=== PATIENT | female | born 1995 | race Caucasian/White ===

== ENCOUNTER → 2019-01-26 19:29 | Outpatient (CLI) | payer BC, OTHER, SELFPAY ==
[2019-01-01 15:18] VITALS: BMI 18.8
[2019-01-26 20:42] LABS: Follicle Stimulating Hormone 6.2 mIU/mL; Thyroid Stim Hormone (TSH) 1.13 uIU/mL (0.358-3.74)
== END ==
PROVIDERS: Visit Provider Obstetrics & Gynecology
DX: Z31.9 Encounter for procreative management, unspecified (principal)
CPT/HCPCS: 36415; 83001; 84443

== ENCOUNTER → 2020-01-16 | Outpatient (CLI) | payer OTHER, SELFPAY ==
[2020-01-16 15:22] VITALS: BMI 18.8
[2020-01-20 18:04] LABS: HPV Reflexed? NOT INDICATED
== END | disposition home or self-care (01) ==
PROVIDERS: Referring Provider Nurse Practitioner Women's Health; Visit Provider Nurse Practitioner Women's Health
DX: Z12.4 Encounter for screening for malignant neoplasm of cervix (principal)
CPT/HCPCS: 88175; G0145

== ENCOUNTER → 2021-05-06 20:42 | Outpatient (CLI) | payer OTHER, SELFPAY ==
[2021-01-18 13:03] VITALS: BMI 18.3
[2021-05-06 21:11] LABS: Hematocrit 39.2 % (37-47); Hemoglobin 13.1 g/dL (12.0-15.0); Mean Corp Hgb Conc 33.4 g/dL (32-36); Mean Corpuscular Hgb 30.5 pg (27.0-32.0); Mean Corpuscular Volume 91.4 fL (81-99); Mean Platelet Vol. 11.4 fl (6.2-12.0); Platelet Count 227 K/mm3 (150-450); RBC Distribution Width CV 11.9 % (11.6-14.6); RBC Distribution Width SD 39.7 fl (35.1-43.9); Red Blood Count 4.29 M/mm3 (4.2-5.4); White Blood Count 6.2 K/mm3 (4.4-11.0)
[2021-05-06 21:31] LABS: Hemoglobin A1c 5.1 % (3.8-5.6)
[2021-05-06 21:54] LABS: ALB/GLOB Ratio 1.2 RATIO (0.9-2.4); AST(SGOT) 14 U/L (15-37); Alanine Aminotransfer ALT/SGPT 13 U/L (13-56); Albumin, Serum 4.1 g/dL (3.2-5.0); Alkaline Phosphatase 52 U/L (45-117); Anion Gap 5 (5-15); BUN 9 mg/dL (7-18); BUN/Creat Ratio 11.2 RATIO (10-20); Calcium,Total 9.1 mg/dL (8.5-10.1); Chloride 107 mmol/L (98-107); EST Glomerular Filtration Rate 90 mL/min (>60); Est Glom Filt Rate - Afr Amer 109 mL/min (>60); Globulin 3.3 g/dL (2.2-4.2); Glucose 92 mg/dL (74-106); Potassium 3.4 mmol/L (3.5-5.1); Prolactin 16.7 ng/mL; Protein, Total 7.4 g/dL (6.4-8.2); Sodium Level 141 mmol/L (136-145); Thyroid Stim Hormone (TSH) 0.87 uIU/mL (0.358-3.74)
[2021-05-07 11:09] LABS: HIV - WCH Non-Reactive (Nonreactive); Hepatitis B Surface Antigen Non-Reactive (Nonreactive); Hepatitis C Antibody Non-Reactive (Nonreactive); Rubella IgG Reactive (Nonreactive); Syphilis Antibodies Non-reactive; Vitamin D,25 Hydroxy 28.8 ng/mL
[2021-05-13 14:21] LABS: Anti-Mullerian Hormone,Serum 2.37 ng/mL (.); V-Zoster IgG (Immunity) 276 index (Immune >165)
== END ==
PROVIDERS: PCP Obstetrics & Gynecology; Visit Provider Obstetrics & Gynecology Reproductive Endocrinology
DX: Z31.41 Encounter for fertility testing (principal)
CPT/HCPCS: 36415; 80053; 82306; 83036; 83516; 84146; 84403; 84443; 85027; 86703; 86762; 86780; 86787; 86803; 86850; 86900; 86901; 87340

== ENCOUNTER → 2021-07-21 08:43 | Outpatient (CLI) | payer OTHER, SELFPAY ==
[2021-07-21 09:18] LABS: hCG Titer Quant., Serum 15 mIU/mL (1-3)
[2021-07-21 10:07] LABS: Progesterone Level 50.29 ng/mL (See Comment)
== END ==
PROVIDERS: PCP Obstetrics & Gynecology; Referring Provider Obstetrics & Gynecology Reproductive Endocrinology; Visit Provider Obstetrics & Gynecology Reproductive Endocrinology
DX: Z32.00 Encounter for pregnancy test, result unknown (principal)
CPT/HCPCS: 36415; 84144; 84702

== ENCOUNTER → 2021-07-23 09:11 | Outpatient (CLI) | payer OTHER, SELFPAY ==
[2021-07-23 09:47] LABS: hCG Titer Quant., Serum 32 mIU/mL (1-3)
[2021-07-23 10:02] LABS: Progesterone Level 56.94 ng/mL (See Comment)
== END ==
PROVIDERS: Referring Provider Obstetrics & Gynecology Reproductive Endocrinology; Visit Provider Obstetrics & Gynecology Reproductive Endocrinology
DX: O09.00 Supervision of pregnancy with history of infertility, unspecified trimester (principal); Z3A.00 Weeks of gestation of pregnancy not specified
CPT/HCPCS: 36415; 82670; 84144; 84443; 84702

== ENCOUNTER → 2021-07-27 08:58 | Outpatient (CLI) | payer OTHER, SELFPAY ==
[2021-07-27 10:07] LABS: hCG Titer Quant., Serum 42 mIU/mL (1-3)
[2021-07-27 10:32] LABS: Progesterone Level 36.76 ng/mL (See Comment)
== END ==
PROVIDERS: PCP Family Medicine; Referring Provider Obstetrics & Gynecology Reproductive Endocrinology; Visit Provider Obstetrics & Gynecology Reproductive Endocrinology
DX: O09.00 Supervision of pregnancy with history of infertility, unspecified trimester (principal); Z3A.00 Weeks of gestation of pregnancy not specified
CPT/HCPCS: 36415; 82670; 84144; 84702

== ENCOUNTER → 2021-07-30 09:03 | Outpatient (CLI) | payer OTHER, SELFPAY ==
[2021-07-30 10:41] LABS: hCG Titer Quant., Serum 17 mIU/mL (1-3)
[2021-07-30 12:55] LABS: Progesterone Level 68.89 ng/mL (See Comment)
== END ==
PROVIDERS: PCP Family Medicine; Referring Provider Obstetrics & Gynecology Reproductive Endocrinology; Visit Provider Obstetrics & Gynecology Reproductive Endocrinology
DX: O02.81 Inappropriate change in quantitative human chorionic gonadotropin (hCG) in early pregnancy (principal)
CPT/HCPCS: 36415; 82670; 84144; 84702

== ENCOUNTER → 2021-08-06 08:00 | Outpatient (CLI) | payer OTHER, SELFPAY ==
[2021-08-06 10:12] LABS: hCG Titer Quant., Serum < 1 mIU/mL (1-3)
== END ==
PROVIDERS: PCP Family Medicine; Referring Provider Obstetrics & Gynecology Reproductive Endocrinology; Visit Provider Obstetrics & Gynecology Reproductive Endocrinology
DX: O09.00 Supervision of pregnancy with history of infertility, unspecified trimester (principal); Z3A.00 Weeks of gestation of pregnancy not specified
CPT/HCPCS: 36415; 84702

== ENCOUNTER 2022-01-25 13:13 | Emergency (ER) | payer OTHER, SELFPAY ==
[2022-01-25 13:14] VITALS: BP 173/108; PULSE 98; RESP 16; TEMP 36.9; O2SAT 100; BMI 17.8
--- NOTE | 2022-01-25 13:51 | CT_ITS ---
STUDY: CT ABDOMEN AND PELVIS WITH CONTRAST REASON FOR EXAM: Female, 26 years old. Epigastric pain. RADIATION DOSAGE (If Supplied By Facility): CTDIvol = ( 7.96 ) mGy, DLP = ( 287.30 ) mGycm TECHNIQUE: Transaxial images were obtained from the dome of the diaphragm to the symphysis pubis with oral contrast. Oral and amp; IV Gastrografin and amp; 100mL Isovue-300 was administered. Sagittal and coronal images were reconstructed. Individualized dose optimization techniques were used for this CT. COMPARISON: None. FINDINGS: The visualized lung bases are unremarkable. The visualized portions of the heart are within normal limits. Normal liver. Normal gallbladder and extrahepatic biliary system. Normal spleen. Normal pancreas. Normal bilateral adrenal glands. Normal right kidney. Normal left kidney. Normal visualized stomach. Normal small intestine. Normal colon. The appendix is visualized and appears normal. Normal abdominal aorta. Normal inferior vena cava. Normal retroperitoneum. Normal urinary bladder. 1.5 cm follicle in the left ovary. Small amount of free fluid in the cul-de-sac. Small follicles are seen in the right ovary. Normal abdominal wall. Normal osseous structures. CT/Abdomen/Pelvis WITH Contrast IMPRESSION: Small amount of free fluid in the cul-de-sac. Follicles in both ovaries more prominent on the left side. Electronically Signed: Kenneth Li MD at 15:55 [facility] ,
--- NOTE | 2022-01-25 13:52 | ED.VIS.GI ---
HPI HPI - GI History of Present Illness Chief Complaint: Abd Pain Detail of Chief Complaint: Abdominal pain x3 days Informant: patient Abdominal Pain/Flank Pain Current Severity: 5/10 Narrative Narrative: Patient presents to the emergency department with complaint of abdominal pain that started 3 days ago. Patient describes epigastric pain that is been continuous. The pain now seems to radiate lower into the abdomen. She has had decreased appetite. She denies nausea or vomiting. She denies diarrhea. She is having normal bowel movements. Patient also started her menstrual period 3 days ago. She denies fevers. She denies urinary symptoms. Food really does not seem to make the pain worse. Patient tells me that she had an EGD in 2019 that showed she had a hiatal hernia. No prior history of gastritis or peptic ulcer disease. Patient has not taken anything for her pain. Prior similar symptoms: Yes PFSH PFSH Medical History (Updated 01/25/22 @ 16:[address] Patricia Murphy, ) LIN I (cervical intraepithelial neoplasia I) History of colposcopy Home Medications albuterol sulfate 90 mcg/actuation aerosol inhaler 1 puff INHALATION Q6H PRN 01/01/19 [History Last Taken Unknown] promethazine 25 mg tablet 25 mg PO Q6H PRN 01/01/19 [History Last Taken Unknown] lansoprazole [Prevacid] 30 mg PO DAILY #14 cap 01/25/22 [Rx Last Taken Unknown] Allergy/AdvReac Type Severity Reaction Status Date / Time clarithromycin [From Biaxin] Allergy Mild rash Verified 01/18/21 12:59 latex Allergy Mild hives Verified 01/18/21 12:59 Family History Mother Hypertension Diabetes Grandmother Diabetes Cancer uterine Grandfather Diabetes Heart disease Hypertension Surgical History H/O esophagogastroduodenoscopy Status post tonsillectomy and adenoidectomy Social History (Updated 01/18/21 @ 13:25 by Amy Gomez NP, [employer]) Smoking Status: Never smoker alcohol intake: never substance use type: does not use caffeine: Yes what type of physical activity do you participate in: walking frequency: 1-2 times per week seatbelt use: always do you feel safe at home: Yes additional social history: [employer] Patient work for [employer] ED Constitutional Constitutional ED: Reports systems reviewed and no addt'l complaints, except as documented; Denies body ache(s), change in weight or chills Eyes Eyes: Denies acute decrease in peripheral vision, change in vision, double vision or loss of vision ENT ENT ED: Reports none; Denies ear pain, lip swelling, loss taste/smell, neck pain, otalgia or sore throat Cardiovascular Cardiovascular: Reports none; Denies abdominal pain, chest pain with activity, leg edema, lightheadedness, palpitations, rapid heart rate or syncope Respiratory/Chest Respiratory/Chest: Reports none; Denies change in mental status, dry cough, dyspnea, hemoptysis, shortness of breath at rest or shortness of breath with exertion Gastrointestinal Gastrointestinal: Reports none, abdominal pain and other Details: Decreased appetite ; Denies change in stool character, diarrhea, hematemesis, hematochezia, melena, rectal bleeding or vomiting Genitourinary Genitourinary ED: Reports none; Denies abdominal discomfort, anuria, dysuria, genital pain or polyuria Musculoskeletal Musculoskeletal: Reports none; Denies arthralgias, back pain, difficulty walking, extremity pain, muscle weakness or myalgias Integumentary Reports none; Denies abscess or rash Neurologic Neurologic: Reports none; Denies abnormal gait, confusion, focal weakness, frequent falls, headache(s), loss of vision, numbness, paresthesias, radicular pain, vertigo or weakness Psychiatric Psychiatric: Reports systems reviewed and no addt'l complaints, except as documented and none; Denies behavioral changes, confusion, difficulty concentrating, hallucinations, suicidal ideation, tactile hallucinations or visual hallucinations Endocrine Endocrinology: Denies none, cold intolerance, excessive sweating, fatigue or heat intolerance Hematologic/Lymphatic Hematologic/Lymphatic: Reports none; Denies anemia, easy bleeding or easy bruising Allergic/Immunologic Allergic/Immunologic ED: Denies as per HPI, none, lip swelling, mouth swelling, throat swelling, tongue swelling or hives EXAM Physical Exam Const Vital Signs: 01/25/22 13:14 Temperature 98.4 F Temperature Source Temporal Pulse Rate 98 Respiratory Rate 16 Blood Pressure 173/108 H Blood Pressure Mean 129 Pulse Ox 100 Oxygen Delivery Method Room Air Positive well nourished and well developed General Appearance ED: well developed and NAD HEENT Reports TM's clear and moist mucous membranes normocephalic and atraumatic; Negative for trauma or tenderness Tympanic Membrane ED: Yes TM's clear Eyes PERRL and EOMs intact bilaterally General Eye ED: Negative for pale conjunctiva or scleral icterus Neck no lymphadenopathy, supple and no JVD General: Negative for tenderness Chest Wall inspection of chest normal and palpation of chest normal Chest: Negative for tenderness Resp normal respiratory effort and clear to auscultation bilaterally Effort and Inspection: Negative for respiratory distress or pain with movement Auscultation: Negative for rhonchi, wheezes or diminished lung sounds Cardio regular rate, regular rhythm, S1 normal heart sound, S2 normal heart sound and no murmurs Peripheral Pulses: pulses 2+ throughout GI normal to inspection, nondistended, normoactive bowel sounds, soft to palpation, non-distended and no masses GI Narrative: Patient with tenderness over the epigastric region that seems to reproduce her pain. Mild tenderness over right upper quadrant without a Chow sign. Patient also with some tenderness over right lower quadrant with some mild guarding. There is no rebound, rigidity, or peritoneal signs. Back/Spine no CVA tenderness and no thoracic nor lumbar tenderness Extremity normal to inspection General Extremety ED: Negative for edema General Extremity: Negative for edema Neuro oriented x3, CN's II-XII intact bilaterally, no sensory deficits noted and gait normal Sensorium / Orientation: awake, alert, oriented to person, oriented to place and oriented to time Motor Exam: strength 5/5 throughout and strength abnormal Psych mental status grossly normal Skin no rashes or lesions noted and no wounds MDM MDM MDM Narrative Medical decision making narrative: IV line established on arrival. Patient did not want anything for pain. Patient given a GI cocktail without any improvement in her pain. At this point etiology of patient pain is unclear. Her CT scan was unremarkable. Lab work unremarkable. Lab Data Attestation: I reviewed the patient's lab results. Labs: Laboratory Results - last 24 hr 01/25/22 01/25/22 01/25/22 13:55 14:02 14:02 WBC 6.1 RBC 4.55 Hgb 13.8 Hct 39.2 MCV 86.2 MCH 30.3 MCHC 35.2 RDW Std Deviation 38.1 RDW Coeff of Ana 12.0 Plt Count 195 MPV 11.4 Immature Gran % (Auto) 0.300 Neut % (Auto) 70.0 Lymph % (Auto) 17.5 L [place] % (Auto) 11.6 H Eos % (Auto) 0.3 Baso % (Auto) 0.3 Absolute Neuts (auto) 4.3 Absolute Lymphs (auto) 1.07 Nucleated RBC % 0 Sodium 139 Potassium 3.3 L Chloride 106 Carbon Dioxide 29.0 Anion Gap 4 L BUN 6 L Creatinine 0.76 Estim Creat Clear Calc 89.96 Est GFR (MDRD) Af Amer 115 Est GFR (MDRD) Non-Af 95 BUN/Creatinine Ratio 7.9 L Glucose 101 Calcium 9.0 Total Bilirubin 1.40 H AST 17 ALT 21 Alkaline Phosphatase 48 Total Protein 7.3 Albumin 4.0 Globulin 3.3 Albumin/Globulin Ratio 1.2 Serum , Qual Urine Color Yellow Urine Clarity Clear Urine pH 6.0 Ur Specific [place] 1.010 Urine Protein Negative Urine Glucose (UA) Normal Urine Ketones Negative Urine Occult Blood 250 H Urine Nitrite Negative Urine Bilirubin Negative Urine Urobilinogen Normal Ur Leukocyte Esterase Negative Urine RBC 0-5 SEEN Urine WBC 0 SEEN Ur Squamous Epith Cells 0 SEEN Urine Bacteria 0 SEEN Urine Mucus 0 SEEN 01/25/22 14:02 WBC RBC Hgb Hct MCV MCH MCHC RDW Std Deviation RDW Coeff of Ana Plt Count MPV Immature Gran % (Auto) Neut % (Auto) Lymph % (Auto) [place] % (Auto) Eos % (Auto) Baso % (Auto) Absolute Neuts (auto) Absolute Lymphs (auto) Nucleated RBC % Sodium Potassium Chloride Carbon Dioxide Anion Gap BUN Creatinine Estim Creat Clear Calc Est GFR (MDRD) Af Amer Est GFR (MDRD) Non-Af BUN/Creatinine Ratio Glucose Calcium Total Bilirubin AST ALT Alkaline Phosphatase Total Protein Albumin Globulin Albumin/Globulin Ratio Serum , Qual NEGATIVE Urine Color Urine Clarity Urine pH Ur Specific [place] Urine Protein Urine Glucose (UA) Urine Ketones Urine Occult Blood Urine Nitrite Urine Bilirubin Urine Urobilinogen Ur Leukocyte Esterase Urine RBC Urine WBC Ur Squamous Epith Cells Urine Bacteria Urine Mucus Radiography Diagnostic Testing: Clinical Impression(s) from Imaging Studies Abdomen/Pelvis CT 01/25/22 13:51 IMPRESSION: Small amount of free fluid in the cul-de-sac. Follicles in both ovaries more prominent on the left side. Electronically Signed: Kenneth Li MD at 15:55 EST , Discharge Plan Triage Chief Complaint: Abd Pain ED Provider: Patricia Murphy Dx/Rx/DC Orders Clinical Impression: Abdominal pain Instructions: ED Abdominal Pain Unkn Cause Fem Prescriptions: New lansoprazole [Prevacid] 30 mg capsule,delayed release(DR/EC) 30 mg PO DAILY Qty: 14 RF: 0 No Action ProAir HFA 90 mcg/actuation HFA aerosol inhaler 1 puff INHALATION Q6H PRN (Reason: Wheezing) RF: 0 promethazine 25 mg tablet 25 mg PO Q6H PRN (Reason: Nausea) RF: 0 Primary Care Provider: Kevin oRca Referrals: Kevin Roca MD [Primary Care Provider] - 3-5 Days Disposition Disposition: Home, Self Care
[2022-01-25 14:06] LABS: Bacteria 0 SEEN /hpf (None Seen); Mucous, Urine 0 SEEN /hpf (<or=2+); Squamous Epithelial Cells - UA 0 SEEN /hpf (5-10); White Blood Cells 0 SEEN /hpf (0-5)
[2022-01-25 14:09] LABS: Color, Urine Yellow (Yellow); Glucose, Dipstick Normal (Normal); Ketone-Dipstick Negative (Negative); Leukocyte Esterase-Dipstick Negative /ul (Negative); Nitrite-Dipstick Negative (Negative); Occult Blood-Urine 250 /ul (Negative); Protein-Dipstick Negative (Negative); Urine Bilirubin Dipstick Negative (Negative); Urine Clarity Clear (Clear); Urine Urobilinogen Normal (Normal)
[2022-01-25 14:10] LABS: Absolute Lymphocyte Count 1.07 X10^3/uL (0.83-4.51); Absolute Neutrophil Count 4.3 X10^3/uL (2.0-7.7); Basophil# 0.02 X10^3/uL; Basophil% 0.3 % (0-1); Eosinophil# 0.02 X10^3/uL; Eosinophils% 0.3 % (0-5); Hematocrit 39.2 % (37-47); Hemoglobin 13.8 g/dL (12.0-15.0); Lymphocyte # 1.07 X10^3/ul (0.83-4.51); Lymphocyte % 17.5 % (19-41); Mean Corp Hgb Conc 35.2 g/dL (32-36); Mean Corpuscular Hgb 30.3 pg (27.0-32.0); Mean Corpuscular Volume 86.2 fL (81-99); Mean Platelet Vol. 11.4 fl (6.2-12.0); Monocyte# 0.71 X10^3/uL; Monocyte% 11.6 % (0-10); NRBC Flagged by Analyzer 0 % (0-5); Neutrophil # 4.27 X10^3/uL (2.7-7.7); Platelet Count 195 K/mm3 (150-450); RBC Distribution Width SD 38.1 fl (35.1-43.9); Red Blood Count 4.55 M/mm3 (4.2-5.4); White Blood Count 6.1 K/mm3 (4.4-11.0)
[2022-01-25 14:16] LABS: Internal QC Validated? YES +Cl - CLEAR BKGD; Pregnancy, Serum, hCG Quali. NEGATIVE Negative
[2022-01-25 14:17] LABS: Red Blood Cells-Urine 0-5 SEEN /hpf (0-5)
[2022-01-25 14:24] LABS: ALB/GLOB Ratio 1.2 RATIO (0.9-2.4); AST(SGOT) 17 U/L (15-37); Alanine Aminotransfer ALT/SGPT 21 U/L (13-56); Alkaline Phosphatase 48 U/L (45-117); Anion Gap 4 (5-15); BUN 6 mg/dL (7-18); BUN/Creat Ratio 7.9 RATIO (10-20); Chloride 106 mmol/L (98-107); Creatinine, Serum 0.76 mg/dL (0.55-1.02); EST Glomerular Filtration Rate 95 mL/min (>60); Est Glom Filt Rate - Afr Amer 115 mL/min (>60); Estimated Creatinine Clearance 89.96 ml/min; Globulin 3.3 g/dL (2.2-4.2); Glucose 101 mg/dL (74-106); Potassium 3.3 mmol/L (3.5-5.1); Protein, Total 7.3 g/dL (6.4-8.2); Sodium Level 139 mmol/L (136-145)
[2022-01-25] MEDS: Mag Hydrox/Al Hydrox/Simeth 30 ML UDC PO (14:42)
[2022-01-25] MEDS: 0.9% Normal Saline 1,000 ML 125 ML IV (14:43)
[2022-01-25 16:05] VITALS: PULSE 72; RESP 18
== END 2022-01-25 16:13 | disposition home or self-care (01) ==
PROVIDERS: Emergency Provider Emergency Medicine; PCP Family Medicine; Visit Provider Emergency Medicine
DX: R10.9 Unspecified abdominal pain (principal)
CPT/HCPCS: 74177; 80053; 81001; 84703; 85025; 96360; 99283; J7030; Q9967

== ENCOUNTER 2022-02-25 14:14 | Outpatient (CLI) | payer OTHER, SELFPAY ==
--- NOTE | 2022-02-25 14:19 | US_ITS ---
HISTORY:right pelvic pain. TECHNIQUE: Transvaginal pelvic ultrasound was performed with grayscale, spectral, and color Doppler flow evaluation. # of images incl. paperwork: 62. COMPARISON: CT 01/25/2022. FINDINGS: UTERUS: 8.2 x 3.7 x 5.3 cm. ENDOMETRIUM: 7 mm in thickness. RIGHT OVARY: 5.3 x 2.5 x 2 cm. 1.7 x 4 x 3.1 cm cyst Vascular flow present. LEFT OVARY: 3.7 x 2.4 x 3.3 cm. 2 cm complex cyst with internal echoes. Vascular flow present. FREE FLUID: No significant free fluid in the pelvis. US/Transvaginal Non- IMPRESSION: 4 cm right ovarian cyst. 2 cm hemorrhagic left ovarian cyst. at 0935 Reported and signed by: Silvia Adams MD Electronically Signed: Silvia Adams MD at 9:33 EDT ,
--- NOTE | 2022-02-25 14:19 | US_ITS ---
HISTORY:right pelvic pain. TECHNIQUE: Transvaginal pelvic ultrasound was performed with grayscale, spectral, and color Doppler flow evaluation. # of images incl. paperwork: 62. COMPARISON: CT 01/25/2022. FINDINGS: UTERUS: 8.2 x 3.7 x 5.3 cm. ENDOMETRIUM: 7 mm in thickness. RIGHT OVARY: 5.3 x 2.5 x 2 cm. 1.7 x 4 x 3.1 cm cyst Vascular flow present. LEFT OVARY: 3.7 x 2.4 x 3.3 cm. 2 cm complex cyst with internal echoes. Vascular flow present. FREE FLUID: No significant free fluid in the pelvis. US/Pelvic (Non ) IMPRESSION: 4 cm right ovarian cyst. 2 cm hemorrhagic left ovarian cyst. at 0935 Reported and signed by: Silvia Adams MD Electronically Signed: Silvia Adams MD at 9:33 EDT ,
== END 2022-02-25 23:59 | disposition home or self-care (01) ==
LOC: US 14:18
PROVIDERS: PCP Family Medicine; Referring Provider Nurse Practitioner Women's Health; Visit Provider Nurse Practitioner Women's Health
DX: R10.2 Pelvic and perineal pain (principal)
CPT/HCPCS: 76830; 76856; 93976

== ENCOUNTER → 2022-04-27 | Outpatient (CLI) | payer OTHER, SELFPAY ==
--- NOTE | 2022-04-27 09:58 | US_ITS ---
STUDY: ULTRASOUND OF THE FEMALE PELVIS - COMPLETE REASON FOR EXAM: Female, 27 years old. Bilateral ovarian cyst . Two-month follow-up examination. LMP: 04/04/2022. TECHNIQUE: Transabdominal and Transvaginal TECHNICAL QUALITY: Adequate. COMPARISON: None. FINDINGS: The uterus is anteverted and is tilted to the right side of the pelvis. The uterus measures 8.5 cm x 5.5 cm x 4 cm. There is a Nabothian cyst of the cervix. The endometrium measures 8 mm in thickness, and is hyperechoic. There is no demonstrated endometrial mass. There is no demonstrated myometrial mass. I.U.D. - The patient does not have an I.U.D. The right ovary is visualized. The right ovary measures 5.1 cm x 3.6 cm x 3.3 cm. There is a 2.3 cm x 2.6 cm x 1.8 cm simple cyst in the ovary. There is no visualized right adnexal mass or complex lesion. There is normal arterial and normal venous vascularity. The left ovary is visualized. The left ovary measures 3.6 cm x 3.2 cm x 2.7 cm. There is a 1.4 cm x 1.5 cm x 1.4 cm left ovarian follicle. There is no visualized left adnexal mass or complex lesion. There is normal arterial and normal venous vascularity. There is no fluid in the cul-de-sac. The pre void volume of the bladder was 376 ml. US/Transvaginal Non- IMPRESSION: 2.3 cm x 2.6 x 1.8 cm right ovarian simple cyst. 1.4 cm x 1.5 ALAYNA by 1.4 cm left ovarian follicle. Electronically Signed: Kenneth Li MD at 16:10 EDT ,
--- NOTE | 2022-04-27 09:58 | US_ITS ---
STUDY: ULTRASOUND OF THE FEMALE PELVIS - COMPLETE REASON FOR EXAM: Female, 27 years old. Bilateral ovarian cyst . Two-month follow-up examination. LMP: 04/04/2022. TECHNIQUE: Transabdominal and Transvaginal TECHNICAL QUALITY: Adequate. COMPARISON: None. FINDINGS: The uterus is anteverted and is tilted to the right side of the pelvis. The uterus measures 8.5 cm x 5.5 cm x 4 cm. There is a Nabothian cyst of the cervix. The endometrium measures 8 mm in thickness, and is hyperechoic. There is no demonstrated endometrial mass. There is no demonstrated myometrial mass. I.U.D. - The patient does not have an I.U.D. The right ovary is visualized. The right ovary measures 5.1 cm x 3.6 cm x 3.3 cm. There is a 2.3 cm x 2.6 cm x 1.8 cm simple cyst in the ovary. There is no visualized right adnexal mass or complex lesion. There is normal arterial and normal venous vascularity. The left ovary is visualized. The left ovary measures 3.6 cm x 3.2 cm x 2.7 cm. There is a 1.4 cm x 1.5 cm x 1.4 cm left ovarian follicle. There is no visualized left adnexal mass or complex lesion. There is normal arterial and normal venous vascularity. There is no fluid in the cul-de-sac. The pre void volume of the bladder was 376 ml. US/Pelvic (Non ) IMPRESSION: 2.3 cm x 2.6 x 1.8 cm right ovarian simple cyst. 1.4 cm x 1.5 ALAYNA by 1.4 cm left ovarian follicle. Electronically Signed: Kenneth Li MD at 16:10 EDT ,
== END | disposition home or self-care (01) ==
PROVIDERS: PCP Family Medicine; Visit Provider Obstetrics & Gynecology
DX: N83.201 Unspecified ovarian cyst, right side (principal); N83.202 Unspecified ovarian cyst, left side
CPT/HCPCS: 76830; 76856

== ENCOUNTER → 2023-02-20 | Outpatient (CLI) | payer BC, SELFPAY ==
[2023-02-27 16:15] LABS: HPV Reflexed? NOT INDICATED
== END | disposition home or self-care (01) ==
LOC: LABSPEC 13:26
PROVIDERS: PCP Family Medicine; Referring Provider Nurse Practitioner Women's Health; Visit Provider Nurse Practitioner Women's Health
DX: Z12.4 Encounter for screening for malignant neoplasm of cervix (principal); N89.8 Other specified noninflammatory disorders of vagina
CPT/HCPCS: 87255; 88175; G0145

== ENCOUNTER → 2023-11-27 | Outpatient (CLI) | payer BC, SELFPAY ==
--- OUTSIDE RECORDS SUMMARY | 2023-11-27 12:29 | XMS RPT_ITS | CCD ---
Author Name Unknown Address [address] [place] [address] Organization [facility] Care Team Providers Care Field Handyman Name Role Phone Shilo Serjio R Unavailable Unavailable No Doctor Assigned, Nodr Unavailable Unavail able Shilo, Serjio R Unavailable Unavailable No Doctor Assigned, Nodr Unavailable Unavail able Shilo, Serjio R Unavailable Unavailable Shilo, Serjio R Unavailable Unavailable No Doctor Assigned, Nodr Unavailable Unavail able Shilo, Serjio R Unavailable Unavailable Newbill, Cliff Bon Unavailable Unavailable Newbill, Cliff Bon Unavailable Unavailable No Doctor Assigned, Nodr Unavailable Unavail able Shilo, Serjio R Unavailable Unavailable No Doctor Assigned, Nodr Unavailable Unavail able Shilo, Serjio R Unavailable Unavailable No Doctor Assigned, Nodr Unavailable Unavail able Shilo, Serjio R Unavailable Unavailable Shilo, Serjio R Unavailable Unavailable No Doctor Assigned, Nodr Unavailable Unavail able Wood, Mirella L Unavailable Unavailable Wood, Mirella L Unavailable Unavailable No Doctor Assigned, Nodr Unavailable Unavail able Newbill, Cliff Bon Unavailable Unavailable Newbill, Cliff Bon Unavailable Unavailable No Doctor Assigned, Nodr Unavailable Unavail able Newbill, Cliff Bon Unavailable Unavailable Newbill, Cliff Bon Unavailable Unavailable No Doctor Assigned, Nodr Unavailable Unavail able CHLOE, HARRISON Referring Unavailable CHLOE, HARRISON Referring Unavailable Kevin Peterson Primary Care Unavailable Olga Peterson MD Primary Care Provider Olga Peterson MD Primary Care Provider SIMÓN MCKEON JR. Attending Unavailable OLGA PETERSON Primary Care Unavailable SIMÓN MCKEON JR. Attending Unavailable OLGA PETERSON Primary Care Unavailable Olga Peterson MD Primary Care Provider [phone] Olga Peterson MD Primary Care Provider [phone] OLGA PETERSON Primary Care Unavailable NORMA MUIR Attending Unavailable NEYDA VAZQUEZ Consulting Unavai lable EMERGENCY, TRIAGE PROTOCOL Admitting Unava ilable EMERGENCY, TRIAGE PROTOCOL Referring Unava ilable NICHOLAS, OLGA Emery Primary Care Unavailable EMERGENCY, TRIAGE PROTOCOL Admitting Unava ilable EMERGENCY, TRIAGE PROTOCOL Referring Unava ilable NICHOLAS, OLGA R Primary Care Unavailable NICHOLAS, OLGA R Primary Care Unavailable LEMON, ELIF Attending Unavailable PONCHO ADAIR Referring Unavailable JONAH SAUNDERS Attending Unavailable OLGA PETERSON Primary Care Unavailable JATIN, PARISH Referring Unavailable GUSTAElisha, OLGA Emery Primary Care Unavailable LEMON, ELIF Attending Unavailable GUSTAElisha, OLGA Emery Primary Care Unavailable JATIN, PARISH Referring Unavailable LEMON, ELIF Attending Unavailable JATIN, PARISH Attending Unavailable OLGA PETERSON Primary Care Unavailable SHAHNAZ HSIEH Attending Unava ilable OLGA PETERSON R Primary Care Unavailable PARTHA BUSH Attending Unavailable OLGA PETERSON Primary Care Unavailable OLGA PETERSON Primary Care Unavailable JATIN, PARISH Referring Unavailable ANJUM CHRISTY Attending Unavailable OLGA PETERSON Primary Care Unavailable JATIN, PARISH Referring Unavailable GUSTAElisha, OLGA R Primary Care Unavailable JATIN, PARISH Referring Unavailable GUSTAElisha, OLGA Emery Primary Care Unavailable JATIN, PARISH Referring Unavailable LEMON, ELIF Attending Unavailable LEMON, ELIF Attending Unavailable GUSTAOLGA Tlelo Primary Care Unavailable PONCHO ADAIR Referring Unavailable JONAH SAUNDERS Attending Unavailable OLGA PETERSON Primary Care Unavailable JATIN, PARISH Referring Unavailable GUSTAElisha, OLGA Emery Primary Care Unavailable LEMON, ELIF Attending Unavailable UGSTAOLGA Tello Primary Care Unavailable LEMON, ELIF Attending Unavailable JATIN, PARISH Referring Unavailable OLGA PETERSON Primary Care Unavailable Olga Peterson MD Primary Care Provider OLGA PETERSON Primary Care Unavailable SELINA REED Attending Unavailable Allergies Allergy Classification Reported Allergen(s) Allergy Type Date of Onset Reaction(s) Facility Latex (2 sources) Latex Substance Allergy Hives [facility] Macrolides (antibiotic) (2 sources) Clarithromycin Drug Allergy [facility] (2 sources) clarithromycin; Translations: [Biaxin] Drug Allergy [facility] Repository (20 sources) Latex; Translations: [Latex] Propensity to adverse reactions (disorder) 5 [facility] Repository (1 source) No Known Allergies; Translations: [No Known Allergies] Propensity to adverse reactions to drug (disorder) [facility] Repository (20 sources) Clarithromycin; Translations: [CLARITHROMYCIN] Drug Allergy 5 [facility], Other [facility] Repository (20 sources) Seasonal allergy; Translations: [SEASONAL ALLERGIES] Propensity to adverse reactions (disorder) 5 [facility] Repository Medications Current Medications Medication Drug Class(es) Dates Sig (Normalized) Sig (Original) Acetaminophen (3 sources) ACETAMINOPHEN OR AL Take by mouth . 0 Active amoxicillin 875 mg / clavulanate 125 mg oral tablet (1 source) Penicillin-class Antibacterial Start: 10-24-2023 End: 10-31-2023 take 1 tablet by mouth twice daily amoxicillin-pot clavulanate (Augmentin) 875-125 mg tablet Indications: Acute non-recurrent maxillary sinusitis Take 1 tablet (875 mg) by mouth 2 times a day for 7 days. 14 tablet 0 10/24/2023 10/31/2023 Active ibuprofen 200 mg oral tablet (1 source) Nonsteroidal Anti-inflammatory Drug Start: 02-06-2013 ibuprofen (ADVIL,MOTRIN) 200 MG tablet Take 400 mg by mouth as needed . 0 02/06/2013 Active naltrexone hydrochloride 50 mg oral tablet (1 source) Opioid Antagonist naltrexone (DEPADE, REVIA) 50 mg tablet Take 3 mg by mouth . 0 Active predniSONE 5 mg oral tablet (1 source) Start: 08-09-2021 take 1 tablet by mouth twice daily predniSONE (DELTASONE) 5 MG tablet Take 5 mg by mouth 2 (two) times a day as directed . 0 08/09/2021 Active Completed/Discontinued Medications Medication Drug Class(es) Dates Sig (Normalized) Sig (Original) [id number] 200 actuat albuterol 0.09 mg/actuat metered dose inhaler (20 sources) beta2-Adrenergic Agonist Start: 04-07-2023 End: 10-19-2023 take 2 puff(s) by inhalation every six hours as needed albuterol HFA (PROAIR HFA) 90 mcg/actuation inhaler Indications: URI, acute Inhale 2 Puffs as instructed every 6 hours as needed. 18 g 0 10/19/2023 Active Problems Active Problems Problem Classification Problem Date Documented Date Episodic/Chronic Abdominal pain (2 sources) Right upper quadrant pain; Translations: [Right upper quadrant pain] Onset: 03-14-2019 Episodic Asthma (20 sources) Asthma; Translations: [Unspecified asthma, uncomplicated] Onset: 04-07-2023 Chronic Headache; including migraine (20 sources) Migraine without aura, not refractory ; Translations: [Chronic migraine without aura, not intractable, without status migrainosus] Onset: 06-14-2015 06-14-2015 Chronic Headache; including migraine (3 sources) Headache; Translations: [Headache] 05-10-2021 Episodic Intracranial injury (4 sources) Concussion with loss of consciousness of unspecified duration, initial encounter; Translations: [Concussion with loss of consciousness of unspecified duration, initial encounter] Onset: 07-17-2023 Episodic Open wounds of head; neck; and trunk (4 sources) Laceration without foreign body of other part of head, initial encounter; Translations: [Laceration without foreign body of other part of head, initial encounter] Onset: 07-17-2023 Episodic Other connective tissue disease (4 sources) Achilles tendinitis; Translations: [Achilles tendinitis, unspecified leg] Episodic Other connective tissue disease (4 sources) Postcalcaneal bursitis; Translations: [Other enthesopathy of unspecified foot and ankle] Episodic Other connective tissue disease (1 source) Weakness of face muscles; Translations: [Facial weakness] 08-09-2023 Episodic Other injuries and conditions due to external causes (1 source) Injury of facial nerve, right side, initial encounter; Translations: [Injury of right facial nerve, initial encounter] Onset: 09-06-2023 Episodic Other lower respiratory disease (1 source) Difficulty breathing; Translations: [Other abnormalities of breathing] 10-09-2023 Episodic Other lower respiratory disease (1 source) Other abnormalities of breathing; Translations: [Breathing difficult] Onset: 10-09-2023 Episodic Other nervous system disorders (1 source) Abnormal sensation; Translations: [Other disturbances of skin sensation] 08-09-2023 Episodic Other nervous system disorders (1 source) Facial palsy; 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] 10-09-2023 Episodic Other nervous system disorders (1 source) Jacinto's palsy; 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] Onset: 10-09-2023 Episodic Other upper respiratory disease (1 source) Deviated nasal septum; Translations: [Deviated nasal septum] 10-09-2023 Episodic Other upper respiratory disease (1 source) Deviated nasal septum; Translations: [Deflected nasal septum] Onset: 10-09-2023 Episodic Other upper respiratory infections (4 sources) Acute upper respiratory infection; Translations: [Acute upper respiratory infection, unspecified] Onset: 10-24-2023 10-19-2023 Episodic Skull and face fractures (4 sources) Fracture of nasal bones, initial encounter for closed fracture; Translations: [Fracture of nasal bones, initial encounter for closed fracture] Onset: 07-17-2023 Episodic Spondylosis; intervertebral disc disorders; other back problems (20 sources) Neck pain; Translations: [Cervicalgia] Onset: 08-21-2023 08-09-2023 Episodic Sprains and strains (7 sources) Rupture of left Achilles tendon; Translations: [Strain of left Achilles tendon, initial encounter] Episodic Superficial injury; contusion (5 sources) Contusion of left foot; Translations: [Contusion of left foot, initial encounter] Episodic Past or Other Problems Problem Classification Problem Date Documented Da te Episodic/Chronic Abdominal hernia (18 sources) Hiatal hernia; Translations: [Diaphragmatic hernia without obstruction or gangrene] Onset: 03-26-2019 03-26-2019 Episodic Acquired foot deformities (20 sources) Talipes planus; Translations: [Flat foot [pes planus] (acquired), unspecified foot] Onset: 04-09-2018 04-09-2018 Episodic Other connective tissue disease (20 sources) Dysfunction of posterior tibial tendon; Translations: [Posterior tibial tendinitis, unspecified leg] Onset: 08-09-2018 08-09-2018 Episodic Other non-traumatic joint disorders (20 sources) Chronic ankle pain; Translations: [Pain in left ankle and joints of left foot] Onset: 04-09-2018 04-09-2018 Episodic Results Test Name Value Interpretation Reference Range Facil ity Vital Signs Date Time Vital Sign Value Performing Clinician Facility 10-24-2023 18:11-0500 Body height 170.2 cm Selina Reed [employer] TECHNOLOGIST Work Phone: [facility] 10-24-2023 18:11-0500 Body mass index (BMI) [Ratio] 18.01 kg/m2 Selina Reed [employer]-SPE[employer] PROCEDURE TECHNOLOGIST Work Phone: [facility] 10-24-2023 18:11-0500 Body temperature 98.49 [degF] Selina Reed [employer]-SPECIAL PROCEDURE TECHNOLOGIST Work Phone: [facility] 10-24-2023 18:11-0500 Body weight 52.16 kg Selina Reed [employer]SPECIAL PROCEDURE TECHNOLOGIST Work Phone: [facility] 10-24-2023 18:11-0500 Diastolic blood pressure 94 mm[Hg] Selina Reed [employer]SPECIAL PROCEDURE TECHNOLOGIST Work Phone: [facility] 10-24-2023 18:11-0500 Heart rate 89 /min Selina Reed [employer]SPECIAL PROCEDURE TECHNOLOGIST Work Phone: [facility] 10-24-2023 18:11-0500 Respiratory rate 18 /min Selina Reed [employer]SPECIAL PROCEDURE TECHNOLOGIST Work Phone: [facility] 10-24-2023 18:11-0500 SaO2% (BldA) [Mass fraction] 97 % Selina Reed [employer]-SPECIAL PROCEDURE TECHNOLOGIST Work Phone: [facility] 10-24-2023 18:11-0500 Systolic blood pressure 127 mm[Hg] Selina Reed [employer]-SPECIAL PROCEDURE TECHNOLOGIST Work Phone: [facility] 10-09-2023 10:33-0500 Body temperature 99 [degF] Partha Saldana MD Work Phone: [facility] 10-09-2023 10:33-0500 Diastolic blood pressure 86 mm[Hg] Partha Saldana MD Work Phone: [facility] 10-09-2023 10:33-0500 Heart rate 93 /min Partha Saldana MD Work Phone: [facility] 10-09-2023 10:33-0500 Systolic blood pressure 129 mm[Hg] Partha Saldana MD Work Phone: [facility] 08-09-2023 13:36-0400 Body weight 52.16 kg Parish Jatin [employer].SPECIAL PROCEDURE TECHNOLOGIST Work Phone: [facility] 08-09-2023 13:36-0400 Diastolic blood pressure 80 mm[Hg] Parish Jatin [employer].SPECIAL PROCEDURE TECHNOLOGIST Work Phone: [facility] 08-09-2023 13:36-0400 Heart rate 87 /min Parish Jatin [employer].SPECIAL PROCEDURE TECHNOLOGIST Work Phone: [facility] 08-09-2023 13:36-0400 Systolic blood pressure 127 mm[Hg] Parish Jatin [employer].SPECIAL PROCEDURE TECHNOLOGIST Work Phone: [facility] 08-20-2021 13:37-0400 Body temperature 98.2 [degF] Simón Ghulam Gamble., DPM Work Phone: [facility] 05-19-2021 09:39-0400 Body temperature 98.2 [degF] Simón Ghulam Jr., DPM Work Phone: [facility] 05-19-2021 09:39-0400 Diastolic blood pressure 92 mm[Hg] Simón Mckeon Jr., DPM Work Phone: [facility] 05-19-2021 09:39-0400 Heart rate 88 /min Simón Mckeon Jr., DPM Work Phone: [facility] 05-19-2021 09:39-0400 Systolic blood pressure 117 mm[Hg] Simón Ghulam Gamble., DPM Work Phone: [facility] 04-14-2021 00:00-0400 Body height 170.2 cm Simón Mckeon Jr., DPM Work Phone: [facility] 04-14-2021 00:00-0400 Body mass index (BMI) [Ratio] 17.85 kg/m2 Simón Mckeon Jr., JUAN MANUEL Work Phone: [facility] 04-14-2021 00:00-0400 Body weight 51.71 kg Simón Mckeon Jr., DPJhonathan Work Phone: [facility] Encounters Encounter Date Encounter Type Care Provider Facility Start: 10-24-2023 End: 10-24-2023 ambulatory OLGA PETERSON [facility] Start: 10-24-2023 End: 10-24-2023 Patient encounter procedure Selina Reed [employer]SPE[employer] PROCEDURE TECHNOLOGIST Work Phone: [facility] Procedures Date Procedure Procedure Detail Performing Clinician Start: 03-24-2021 Mri any jt lower ext rem w/o contrast matrl Simón Mckeon DPM Work Phone: Start: 10-30-2020 Adult depression screening assessment Olga Peterson MD Work Phone: Plan of Treatment Date Care Activity Detail Author Start: 2043 Zoster Vaccines (1 of 2) Zoster Vaccines (1 of 2) [facility] Start: 07-17-2033 DTaP/Tdap/Td Vaccines (8 - Td or Tdap) DTaP/Tdap/Td Vaccines (8 - Td or Tdap) [facility] Start: 07-17-2033 Urine microalbumin profile DTaP,Tdap,Td Vaccine (8 - Td or Tdap) [facility] Start: 02-21-2028 PAP TESTING PAP TESTING [facility] Start: 08-16-2027 Tetanus vaccination Tetanus: Every 10yrs [facility] Start: 08-16-2027 Urine microalbumin profile [facility] Start: 08-09-2024 Annual PCP Team Chronic Disease Visit Annual PCP Team Chronic Disease Visit [facility] Start: 04-07-2024 ANNUAL PCP TEAM CHRONIC DISEASE VISIT ANNUAL PCP TEAM CHRONIC DISEASE VISIT [facility] Start: 07-21-2023 Influenza vaccination [facility] Start: 05-06-2023 HPV TESTING HPV TESTING [facility] Start: 11-20-2022 DEPRESSION ASSESSMENT DEPRESSION ASSESSMENT [facility] Start: 07-21-2022 Influenza vaccination INFLUENZA (Season Ended) [facility] Start: 10-30-2021 Adult depression screening assessment DEPRESSION SCREENING [facility] Start: 08-11-2021 End: 08-11-2021 Patient encounter procedure 08/11/2021 Office Visit Podiatry Simón Mckeon Jr., DPM [address] [place] [address] [phone] [facility] Start: 07-21-2021 Influenza vaccination [facility] Start: 05-19-2021 End: 05-19-2021 Patient encounter procedure 05/19/2021 Office Visit Podiatry Simón Mckeon Jr., DPJhonathan [address] [place] [address] [phone] [facility] Start: 04-17-2020 PAP TESTING PAP TESTING [facility] Start: 2014 Screening for malignant neoplasm of cervix [facility] Start: 06-17-2012 HPV Vaccines (3 - 3-dose series) HPV Vaccines (3 - 3-dose series) [facility] Start: 2011 Diabetes mellitus screening Diabetes Screening [facility] Start: 2011 Hepatitis C screening Hepatitis C Screening [facility] Start: 2011 HEPATITIS C SCREENING HEPATITIS C SCREENING [facility] Start: 2011 HIV SCREENING HIV SCREENING [facility] Start: 2011 SPIROMETRY SPIROMETRY [facility] Start: 2009 COVID-19 Vaccine (1) COVID-19 Vaccine (1) [facility] Start: 2008 HIV screening HIV Screening [facility] Start: 2005 COVID-19 Vaccine (1) COVID-19 Vaccine (1) [facility] Start: 2005 Depression screening using PHQ-9 (Patient Health Questionnaire 9) score Depression Screening (PHQ9) [facility] Start: 1999 PNEUMOCOCCAL (1 - PCV) PNEUMOCOCCAL (1 - PCV) [facility] Start: 1999 Pneumococcal vaccination Pneumococcal Vaccine (1 - PCV) [facility] Start: 1999 Pneumococcal Vaccine: Ped or At-Risk (1 of 2 - PPSV23) Pneumococcal Vaccine: Ped or At-Risk (1 of 2 - PPSV23) [facility] Start: 1998 COVID-19 VACCINE (#1) COVID-19 VACCINE (#1) [facility] Start: 1996 History and physical examination, annual for health maintenance Wellness Visit [facility] Start: 1993 COVID-19 VACCINE (#1) COVID-19 VACCINE (#1) [facility] Start: 1993 HIV screening HIV Screening [facility] Start: 1993 Lipid panel Lipid Panel [facility] Start: 1993 Screening for malignant neoplasm of cervix Pap Smear [facility] Start: 1993 Yearly Adult Physical Yearly Adult Physical [facility] End: 11-07-2024 Ct maxillofacial w/o contrast material CT FACIAL BONE/MEET WO IVCON Radiology Routine Deflected nasal septum 1 Occurrences starting 10/09/2023 until 11/07/[address] [facility] Work Phone: Immunizations Immunization Date Immunization Notes Care Provider Fa [facility] 09-05-2018 influenza, seasonal, injectable Olga Peterson MD Work Phone: [facility] 09-05-2018 influenza virus vacc ine, unspecified formulation Parish Avalos [employer]SPE[employer] PROCEDURE TECHNOLOGIST Work Phone: [facility] 06-04-2018 hepatitis B vaccine, adult dosage Olga Peterson MD Work Phone: [facility] 01-04-2018 hepatitis B vaccine, adult dosage Olga Peterson MD Work Phone: [facility] 01-04-2018 varicella virus vaccine Efrem Peterson MD Work Phone: [facility] 12-04-2017 hepatitis B vaccine, pediatric or pediatric/adolescent dosage Olga Peterson MD Work Phone: [facility] 12-04-2017 varicella virus vaccine Efrem Peterson MD Work Phone: [facility] 08-16-2017 tetanus toxoid, redu erika diphtheria toxoid, and acellular pertussis vaccine, adsorbed Olga Peterson MD Work Phone: [facility] 09-10-2015 influenza, injectabl e, quadrivalent, contains preservative Olga Peterson MD Work Phone: [facility] 02-16-2012 human papilloma viru s vaccine, bivalent Olga Peterson MD Work Phone: [facility] 02-16-2012 human papilloma viru s vaccine, quadrivalent Olga Peterson MD Work Phone: [facility] 02-16-2012 HPV, unspecified formulation Selina Reed [employer]-SPECIAL PROCEDURE TECHNOLOGIST Work Phone: [facility] Work Phone: 01-05-2010 human papilloma viru s vaccine, bivalent Olga Peterson MD Work Phone: [facility] 01-05-2010 human papilloma viru s vaccine, quadrivalent Olga Peterson MD Work Phone: [facility] 01-05-2010 meningococcal oligosaccharide (groups A, C, Y and W-135) diphtheria toxoid conjugate vaccine (MCV4O) Olga Peterson MD Work Phone: [facility] 01-05-2010 meningococcal polysaccharide (groups A, C, Y and W-135) diphtheria toxoid conjugate vaccine (MCV4P) Olga Peterson MD Work Phone: [facility] 12-22-2008 influenza virus vacc ine, unspecified formulation Olga Peterson MD Work Phone: [facility] 12-22-2008 influenza virus vacc ine, whole virus Olga Peterson MD Work Phone: [facility] 02-13-2007 meningococcal oligosaccharide (groups A, C, Y and W-135) diphtheria toxoid conjugate vaccine (MCV4O) Olga Peterson MD Work Phone: [facility] 02-13-2007 meningococcal polysaccharide (groups A, C, Y and W-135) diphtheria toxoid conjugate vaccine (MCV4P) Olga Peterson MD Work Phone: [facility] 07-15-1998 diphtheria, tetanus toxoids and acellular pertussis vaccine Olga Peterson MD Work Phone: [facility] 07-15-1998 diphtheria, tetanus toxoids and acellular pertussis vaccine, unspecified formulation Olga Peterson MD Work Phone: [facility] 07-15-1998 poliovirus vaccine, inactivated Olga Peterson MD Work Phone: [facility] 09-28-1994 diphtheria, tetanus toxoids and acellular pertussis vaccine Olga Peterson MD Work Phone: [facility] 09-28-1994 diphtheria, tetanus toxoids and acellular pertussis vaccine, unspecified formulation Olga Peterson MD Work Phone: [facility] 06-29-1994 haemophilus influenz ae type b vaccine, HbOC conjugate Olga Peterson MD Work Phone: [facility] 06-29-1994 haemophilus influenz ae type b vaccine, PRP-T conjugate Olga Peterson MD Work Phone: [facility] 06-29-1994 measles, mumps and rubella virus vaccine Olga Peterson MD Work Phone: [facility] 06-29-1994 poliovirus vaccine, inactivated Olga Peterson MD Work Phone: [facility] 04-20-1994 hepatitis B vaccine, pediatric or pediatric/adolescent dosage Olga Peterson MD Work Phone: [facility] 1993 diphtheria, tetanus toxoids and acellular pertussis vaccine Olga Peterson MD Work Phone: [facility] 1993 diphtheria, tetanus toxoids and acellular pertussis vaccine, unspecified formulation Olga Peterson MD Work Phone: [facility] 1993 haemophilus influenz ae type b vaccine, HbOC conjugate Olga Peterson MD Work Phone: [facility] 1993 haemophilus influenz ae type b vaccine, PRP-T conjugate Olga Peterson MD Work Phone: [facility] 1993 diphtheria, tetanus toxoids and acellular pertussis vaccine Olga Peterson MD Work Phone: [facility] 1993 diphtheria, tetanus toxoids and acellular pertussis vaccine, unspecified formulation Olga Peterson MD Work Phone: [facility] 1993 haemophilus influenz ae type b vaccine, HbOC conjugate Olga Peterson MD Work Phone: [facility] 1993 haemophilus influenz ae type b vaccine, PRP-T conjugate Olga Peterson MD Work Phone: [facility] 1993 poliovirus vaccine, inactivated Olga Peterson MD Work Phone: [facility] 1993 hepatitis B vaccine, pediatric or pediatric/adolescent dosage Olga Peterson MD Work Phone: [facility] 1993 diphtheria, tetanus toxoids and acellular pertussis vaccine Olga Peterson MD Work Phone: [facility] 1993 diphtheria, tetanus toxoids and acellular pertussis vaccine, unspecified formulation Olga Peterson MD Work Phone: [facility] 1993 haemophilus influenz ae type b vaccine, HbOC conjugate Olga Peterson MD Work Phone: [facility] 1993 haemophilus influenz ae type b vaccine, PRP-T conjugate Olga Peterson MD Work Phone: [facility] 1993 poliovirus vaccine, inactivated Olga Peterson MD Work Phone: [facility] 1993 hepatitis B vaccine, pediatric or pediatric/adolescent dosage Olga Peterson MD Work Phone: [facility] Payers Date Payer Category Payer Unknown [id number] 2021 Worker's Compensation [id number] 2021 Worker's Compensation [id number] 2020 Unknown [id number] 2020 Unknown MMO MMO [employer] [id number] 2020-Present [phone] [address] [place] [address] PPO [id number] 2017 Unknown 2011 Unknown ANTHEM ANTHEM BLUE/PREF/HMO/PPO [id number] 2011-Present [id number] 1993 Unknown [id number] 1993 Unknown [id number] [id number] 1993 Unknown [id number] 2.16.840.1.906651.3.579.2 1993 Unknown [id number] 2.16.840.1.172807.3.579.2 1993 Unknown [id number] [id number] 1993 Unknown [id number] 2.16.840.1.724553.3.579.2 1993 Unknown [id number] [id number] 1993 Unknown [id number] 2.16.840.1.861267.3.579.2 1993 Unknown [id number] 2.16.840.1.119464.3.579.2 1993 Unknown [id number] 2.16.840.1.310597.3.579.2. 717 1993 Unknown [id number] 2.16.840.1.048999.3.579.2. 278 1993 Unknown [id number] 2.16.840.1.225128.3.579.2. 903 1993 Unknown [id number] 2.16.840.1.097507.3.579.2. 903 1993 Unknown [id number] 2.16.840.1.644307.3.579.2. 903 1993 Unknown [id number] 2.16.840.1.091419.3.579.2. 3 1993 Unknown [id number] [id number]. 903 1993 Unknown [id number] [id number]. 1243 Unknown [id number] Social History Date Type Detail Facility Tobacco smoking stat [facility] Unknown if ever smoked [facility] Start: 1995 Sex Assigned At Not on file [facility] Start: 10-14-2023 End: 10-24-2023 Exposure to SARS-CoV-2 (event) Not sure [facility] Start: 05-10-2021 End: 10-24-2023 Tobacco smoking status NEIS Never smoker [facility] Start: 05-10-2021 End: 10-24-2023 Tobacco use and exposure Never used [facility] Start: 05-10-2021 End: 08-20-2021 Alcohol intake Ex-drinker (finding) [facility] Start: 10-29-2021 End: 10-09-2023 Alcohol intake Current non-drinker of alcohol (finding) [facility] Start: 10-30-2020 End: 04-07-2023 History of Social function [facility] Start: 10-30-2020 End: 04-07-2023 Social connection and isolation panel [facility] In a typical week, h ow many times do you talk on the telephone with family, friends, or neighbors? Patient refused [facility] Are you now , , , , never or living with a partner? Refused [facility] (I/We) worried esperanza er (my/our) food would run out before (I/we) got money to buy more. DK or Refused [facility] In the past 12 month s, was there a time when you were not able to pay the mortgage or rent on time? No [facility] Start: 10-24-2023 Alcohol intake Lifetime non-d francois (finding) [facility] Work Phone: Clinical Notes 01-29-2019 to 10-24-2023 Selina Reed APRN-INDRA - 10/24/2023 5:55 PM ESTTelephone Encounter - Shiela Hall MA - 10/19/2023 9:[address] - 10/09/2023 11:49 AM ESTPatient Instructions Note Date & Type Note Facility 10-24-2023 History of Presen t illness Narrative 28 y.o. female patient presents for evaluation of sinus pressure. Patient reports 1 week of progressively worsening maxillary sinus pain, nasal congestion, and headache. There is reported mild postnasal drip and ear pressure. No fever, cough, or other constitutional signs and symptoms. Symptoms have been refractory to [id number] medications. Vitals: 10/24/23 1811 BP: (!) 127/94 Pulse: 89 Resp: 18 Temp: 36.9 C (98.5 F) SpO2: 97% Allergies Allergen Reactions Biaxin [Clarithromycin] Other Latex Hives Medication Documentation Review Audit Prior to Admission medications have not yet been reviewed Past Medical History: Diagnosis Date Asthma Past Surgical History: Procedure Laterality Date GI TRACT, UPPER W/O KUB ROS See HPI Physical Exam Vitals and nursing note reviewed. Constitutional: Appearance: Normal appearance. She is normal weight. She is ill-appearing (mildly). HENT: Head: Normocephalic and atraumatic. Right Ear: Ear canal normal. A middle ear effusion is present. Tympanic membrane is bulging. Tympanic membrane is not erythematous. Left Ear: Ear canal normal. A middle ear effusion is present. Tympanic membrane is bulging. Tympanic membrane is not erythematous. Nose: Congestion present. Mouth/Throat: Mouth: Mucous membranes are moist. Pharynx: No oropharyngeal exudate or posterior oropharyngeal erythema. Eyes: Extraocular Movements: Extraocular movements intact. Conjunctiva/sclera: Conjunctivae normal. Pupils: Pupils are equal, round, and reactive to light. Cardiovascular: Rate and Rhythm: Normal rate and regular rhythm. Heart sounds: Normal heart sounds. No murmur heard. No gallop. Pulmonary: Effort: Pulmonary effort is normal. Breath sounds: Normal breath sounds. Lymphadenopathy: Cervical: Cervical adenopathy present. Skin: General: Skin is warm and dry. Capillary Refill: Capillary refill takes less than 2 seconds. Neurological: General: No focal deficit present. Mental Status: She is alert and oriented to person, place, and time. Psychiatric: Mood and Affect: Mood normal. Behavior: Behavior normal. Assessment/Plan/MDM Nancy was seen today for earache. Diagnoses and all orders for this visit: Acute non-recurrent maxillary sinusitis (Primary) - amoxicillin-pot clavulanate (Augmentin) 875-125 mg tablet; Take 1 tablet (875 mg) by mouth 2 times a day for 7 days. Encouraged pt to continue otc cold remedies PRN, push by mouth fluids and rest. Patient's clinical presentation is otherwise unremarkable at this time. Patient is discharged with instructions to follow-up with primary care or seek emergency medical attention for worsening symptoms or any new concerns. Selina Reed CNP [facility] [phone] documented in this encounter [facility] Work Phone: 10-19-2023 Miscellaneous Notes Pharmacy verified in [facility] Patient has been identified by name and date of : Yes Patient aware RX will be sent to pharmacy. No need to notify patient. Patient phones for refill(s): Requested Prescriptions Pending Prescriptions Disp Refills albuterol HFA (PROAIR HFA) 90 mcg/actuation inhaler 18 g 0 Sig: Inhale 2 Puffs as instructed every 6 hours as needed. Date of last office visit : Visit date not found Date of next office visit : Visit date not found Last 2 Encounter Wt Readings: Date: Wt: 09/06/2023 52.9 kg (116 lb 9.6 oz) 08/09/2023 52.2 kg (115 lb) Not applicable Please advise. Shiela Hall MA documented in this encounter [facility] 10-09-2023 Note HNO ID: [id number] Author: Sarai Gonzáles ST Service: ? Author Type: Retail Key Holder Type: Progress Notes Filed: 10/09/2023 11:49 AM Note Text: DATE OF PHOTOS: 10/09/2023 Body Part: Full Face and Oral ST Melita October 09, 2023 11:49 AM [facility] 10-09-2023 Note HNO ID: [id number] Author: Sarai Gonzáles ST Service: ? Author Type: Retail Key Holder Type: Progress Notes Filed: 10/09/2023 11:19 AM Note Text: DATE OF PHOTOS: 10/09/2023 Body Part: Full Face and Oral ST Melita October 09, 2023 11:19 AM [facility] 10-09-2023 Note HNO ID: [id number] Author: Partha Buhs MD Service: ? Author Type: Physician Type: Progress Notes Filed: 10/09/2023 11:15 AM Note Text: Plastic Surgery Note CC: Difficulty breathing, Numbness of the face HPI: Nancy is a 28 year old female who presents with nasal fracture and, numbness to the right lip/upper nostril and weakness to face and cannot fully smile. She fell 07/17 after donating blood and presented to the ED. Has been following with neurology as well which referred here for possible nerve repair. Since the injury she Has been trouble breathing on the right side of nose. She has not had feeling from scar line to lip, and doesn't have feeling on the right side of nose. Has sharp pain in the middle of her lip also has burning when lip gets cold. Can feel tingling when animated expressions. No results found for: HBA1C Last 10 Encounter BP Readings: Date: BP: 09/06/2023 132/86 08/21/2023 [not assessed[ 08/09/2023 127/80 10/29/2021 121/66 09/18/2021 110/68 02/28/2020 110/76 09/17/2019 110/78 05/31/2019 108/66 03/26/2019 100/76 01/31/2019 99/57 CBC Latest Ref Rng AND Units 01/09/2015 03/17/2015 12/14/2018 WBC 3.70 - 11.00 k/uL 10.53 4.74 7.54 RBC 3.90 - 5.20 m/uL 4.48 4.62 4.53 HEMOGLOBIN 11.5 - 15.5 g/dL 13.3 13.7 13.9 HEMATOCRIT 36.0 - 46.0 % 39.5 40.6 42.0 MCV 80.0 - 100.0 fL 88.2 87.9 92.7 MCH 26.0 - 34.0 pG 29.7 29.7 30.7 MCHC 30.5 - 36.0 g/dL 33.7 33.7 33.1 RDW-CV 11.5 - 15.0 % 12.8 12.9 12.0 PLATELETS 150 - 400 k/uL 209 210 205 MPV 9.0 - 12.7 fL 12.4 12.4 11.8 BASO% % 0.4 - - ABS NEUT (ANC) 1.45 - 7.50 k/uL 7.87(H) - - ABS LYMPH 1.00 - 4.00 k/uL 1.60 - - ABS MONO 0.00 - 0.86 k/uL 0.91(H) - - ABS EOSIN 0.00 - 0.45 k/uL 0.11 - - ABS BASO 0.00 - 0.10 k/uL 0.04 - - DIFF TYPE - Auto Diff - - CMP Latest Ref Rng AND Units 01/09/2015 03/17/2015 12/14/2018 SODIUM 136 - 144 mmol/L 142 140 140 POTASSIUM 3.7 - 5.1 mmol/L 4.0 4.1 4.3 CHLORIDE 97 - 105 mmol/L 103 - 102 CO2 22 - 30 mmol/L 24 - 27 GLUCOSE 74 - 99 mg/dL 58(L) - 90 BUN 7 - 21 mg/dL 9 10 9 CREATININE 0.58 - 0.96 mg/dL 0.76 0.84 0.69 EGFR-ALL OTHER RACES . >60 >60 >60 EGFR- - >60 >60 >60 PROTEIN, TOTAL 6.3 - 8.0 g/dL 7.1 - 7.3 ALBUMIN 3.9 - 4.9 g/dL 4.4 - 4.5 CALCIUM, TOTAL 8.5 - 10.2 mg/dL 10.1 - 9.8 BILIRUBIN, TOTAL 0.2 - 1.3 mg/dL 1.0 - 1.5(H) AST 13 - 35 U/L 20 20 27 ALT 7 - 38 U/L 10 12 17 ALKALINE PHOSPHATASE 34 - 123 U/L 57 57 55 YES NO Smoking, vaping, nicotine, cannabis [] [x] Cigarettes/ day.... ? Diabetes [] [x] []Type 1? []Type 2 ?Last A1c:..... Systemic inflammatory diseases [] [x] []RA []Gout []Other... Hypertension [] [x] Meds:....... Heart disease or pacemaker [] [x] ............ Family history blood clots [] [x] Personal history blood clots [] [x] Anticoagulation (aspirin, coumadin, xarelto,etc) [] [x] What........... Reason:........... Immunosuppressants (steroid, biologic meds infusion, etc) [] [x] What........... Reason:........... Pt AGAINST blood transfusion? [] [x] Objective: LMP 08/05/2023 (Exact Date) PAST MEDICAL HISTORY Diagnosis Date Asthma Gastritis Hiatal hernia Lyme disease Migraines Primary dysmenorrhea Seasonal allergies PAST SURGICAL HISTORY Procedure Laterality Date EGD 01/31/2019 Hiatal hernia TONSILLECTOMY HX Tonsilectomy Current Outpatient Medications Medication Sig Dispense Refill cyclobenzaprine (FLEXERIL) 5 mg tablet Take 1 tablet by mouth three times daily as needed. 20 tablet 0 albuterol HFA (PROAIR HFA) 90 mcg/actuation inhaler Inhale 2 Puffs as instructed every 6 hours as needed. 18 g 0 ondansetron orally disintegrating (ZOFRAN ODT) 8 mg disintegrating tablet Take 1 tablet by mouth once daily. DISSOLVE ON TONGUE 15 tablet 0 fluticasone (FLONASE ALLERGY RELIEF) 50 mcg/actuation nasal spray Use 1 [place] in each nostril twice daily. 18.2 mL 1 CETIRIZINE HCL (ZYRTEC ORAL) Take by mouth. No current facility-administered medications for this visit. ALLERGIES Allergen Reactions Latex Hives Biaxin [Clarithromy* Hives Seasonal Allergies Hives ROS: All negative except for: GENERAL: []weight loss []malaise []fevers HEENT: []frequent or significant headaches []changes in hearing []change in vision []nose bleeds []other nasal problems NECK: []lumps []goiter []pain and significant neck swelling RESPIRATORY: []cough []hemoptysis []wheezing []COPD []dyspnea []shortness of breath CARDIOVASCULAR: []chest pain []leg swelling []hypertension []CHF []palpitations GI: []nausea []vomiting []diarrhea MUSCULOSKELETAL: see HPI SKIN: [] skin lesions []rash []itching PSYCH: []sleep disturbance []mood disorder []recent psychosocial stressors HEMATOLOGY/LYMPHOLOGY: []prolonged bleeding []bruising easily []swollen nodes ENDOCRINE: []cold intolerance []heat intolerance []polyuria []polydipsia []goiter Smile asymmetry right side lower than left R upper lip lower (more content not included)... [facility] 10-09-2023 History of Presen t illness Narrative DATE OF PHOTOS: 10/09/2023 Body Part: Full Face and Oral ST Melita October 09, 2023 11:49 AM documented in this encounter [facility] 10-09-2023 History of Presen t illness Narrative DATE OF PHOTOS: 10/09/2023 Body Part: Full Face and Oral ST Melita October 09, 2023 11:19 AM documented in this encounter [facility] 11-20-2023 History of Presen t illness Narrative Plastic Surgery Note CC: Difficulty breathing, Numbness of the face HPI: Nancy is a 28 year old female who presents with nasal fracture and, numbness to the right lip/upper nostril and weakness to face and cannot fully smile. She fell 07/17 after donating blood and presented to the ED. Has been following with neurology as well which referred here for possible nerve repair. Since the injury she Has been trouble breathing on the right side of nose. She has not had feeling from scar line to lip, and doesn't have feeling on the right side of nose. Has sharp pain in the middle of her lip also has burning when lip gets cold. Can feel tingling when animated expressions. No results found for: HBA1C Last 10 Encounter BP Readings: Date: BP: 09/06/2023 132/86 08/21/2023 [not assessed[ 08/09/2023 127/80 10/29/2021 121/66 09/18/2021 110/68 02/28/2020 110/76 09/17/2019 110/78 05/31/2019 108/66 03/26/2019 100/76 01/31/2019 99/57 CBC Latest Ref Rng & Units 01/09/2015 03/17/2015 12/14/2018 WBC 3.70 - 11.00 k/uL 10.53 4.74 7.54 RBC 3.90 - 5.20 m/uL 4.48 4.62 4.53 HEMOGLOBIN 11.5 - 15.5 g/dL 13.3 13.7 13.9 HEMATOCRIT 36.0 - 46.0 % 39.5 40.6 42.0 MCV 80.0 - 100.0 fL 88.2 87.9 92.7 MCH 26.0 - 34.0 pG 29.7 29.7 30.7 MCHC 30.5 - 36.0 g/dL 33.7 33.7 33.1 RDW-CV 11.5 - 15.0 % 12.8 12.9 12.0 PLATELETS 150 - 400 k/uL 209 210 205 MPV 9.0 - 12.7 fL 12.4 12.4 11.8 BASO% % 0.4 - - ABS NEUT (ANC) 1.45 - 7.50 k/uL 7.87(H) - - ABS LYMPH 1.00 - 4.00 k/uL 1.60 - - ABS MONO 0.00 - 0.86 k/uL 0.91(H) - - ABS EOSIN 0.00 - 0.45 k/uL 0.11 - - ABS BASO 0.00 - 0.10 k/uL 0.04 - - DIFF TYPE - Auto Diff - - CMP Latest Ref Rng & Units 01/09/2015 03/17/2015 12/14/2018 SODIUM 136 - 144 mmol/L 142 140 140 POTASSIUM 3.7 - 5.1 mmol/L 4.0 4.1 4.3 CHLORIDE 97 - 105 mmol/L 103 - 102 CO2 22 - 30 mmol/L 24 - 27 GLUCOSE 74 - 99 mg/dL 58(L) - 90 BUN 7 - 21 mg/dL 9 10 9 CREATININE 0.58 - 0.96 mg/dL 0.76 0.84 0.69 EGFR-ALL OTHER RACES . >60 >60 >60 EGFR- - >60 >60 >60 PROTEIN, TOTAL 6.3 - 8.0 g/dL 7.1 - 7.3 ALBUMIN 3.9 - 4.9 g/dL 4.4 - 4.5 CALCIUM, TOTAL 8.5 - 10.2 mg/dL 10.1 - 9.8 BILIRUBIN, TOTAL 0.2 - 1.3 mg/dL 1.0 - 1.5(H) AST 13 - 35 U/L 20 20 27 ALT 7 - 38 U/L 10 12 17 ALKALINE PHOSPHATASE 34 - 123 U/L 57 57 55 YES NO Smoking, vaping, nicotine, cannabis [] [x] Cigarettes/ day.... ? Diabetes [] [x] []Type 1? []Type 2 ?Last A1c:..... Systemic inflammatory diseases [] [x] []RA []Gout []Other... Hypertension [] [x] Meds:....... Heart disease or pacemaker [] [x] ............ Family history blood clots [] [x] Personal history blood clots [] [x] Anticoagulation (aspirin, coumadin, xarelto,etc) [] [x] What........... Reason:........... Immunosuppressants (steroid, biologic meds infusion, etc) [] [x] What........... Reason:........... Pt AGAINST blood transfusion? [] [x] Objective: LMP 08/05/2023 (Exact Date) PAST MEDICAL HISTORY Diagnosis Date Asthma Gastritis Hiatal hernia Lyme disease Migraines Primary dysmenorrhea Seasonal allergies PAST SURGICAL HISTORY Procedure Laterality Date EGD 01/31/2019 Hiatal hernia TONSILLECTOMY HX Tonsilectomy Current Outpatient Medications Medication Sig Dispense Refill cyclobenzaprine (FLEXERIL) 5 mg tablet Take 1 tablet by mouth three times daily as needed. 20 tablet 0 albuterol HFA (PROAIR HFA) 90 mcg/actuation inhaler Inhale 2 Puffs as instructed every 6 hours as needed. 18 g 0 ondansetron orally disintegrating (ZOFRAN ODT) 8 mg disintegrating tablet Take 1 tablet by mouth once daily. DISSOLVE ON TONGUE 15 tablet 0 fluticasone (FLONASE ALLERGY RELIEF) 50 mcg/actuation nasal spray Use 1 [place] in each nostril twice daily. 18.2 mL 1 CETIRIZINE HCL (ZYRTEC ORAL) Take by mouth. No current facility-administered medications for this visit. ALLERGIES Allergen Reactions Latex Hives Biaxin [Clarithromy* Hives Seasonal Allergies Hives ROS: All negative except for: GENERAL: []weight loss []malaise []fevers HEENT: []frequent or significant headaches []changes in hearing []change in vision []nose bleeds []other nasal problems NECK: []lumps []goiter []pain and significant neck swelling RESPIRATORY: []cough []hemoptysis []wheezing []COPD []dyspnea []shortness of breath CARDIOVASCULAR: []chest pain []leg swelling []hypertension []CHF []palpitations GI: []nausea []vomiting []diarrhea MUSCULOSKELETAL: see HPI SKIN: [] skin lesions []rash []itching PSYCH: []sleep disturbance []mood disorder []recent psychosocial stressors HEMATOLOGY/LYMPHOLOGY: []prolonged bleeding []bruising easily []swollen nodes ENDOCRINE: []cold intolerance []heat intolerance []polyuria []polydipsia []goiter Smile asymmetry right side lower than left R upper lip lower than left upper lip Effacement of the R labial fold Weakness of the marginal mandibular Cervical branches intact Caudal septum deviation [place] on the right nostril reducing airflow Bilateral flaring medial foot plates Functional exam YES NO Anterior septal perforation [] [x] Septal deviation [x] [] []High [x]Caudal [x]To the right []To the left []C []Reverse C []S []Irregular Septal spur [] [] []Right []Left []Both Maxillary crest spur [] [] []Right []Left []Both Turbinate hypertrophy [] [] []Right []Left []Both Internal nasal valve collapse on inspiration [x] [] [x]Right []Left []Both Carla test positive [x] [] [x]Right []Left []Both Lateral nasal wall collapse on inspiration [x] [] []Right []Left [x]Both External nasal valve collapse on inspiration [] [] []Right []Left []Both Problems breathing out [] [x] []Right []Left []Both Scars [x] [] Location. apex R labial fold to R nasal Alar ... 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 []Cosmetic deformity [x]Septal deviation []Nasal deviation [x]Nasal trauma [x]Collapse internal nasal valve []Collapse external nasal valve []Allergic Nasal Obstruction Photographs have been taken and will be sent to the insurance company as necessary. A/P: - Instructed to wait until it has been a year before injury to allow sensation is to come back and can follow up for evaluation/ possible surgical intervention - Massage in meantime for improvement of tenderness - photos today - Ordered Facial CT to get beginning of April, and follow up after imaging is complete. The patient is seen and examined by Dr. Stubbs and the following reflects his/her service. Scribed by Adolfo Thompson RN I agree with the Chief Complaint, ROS, and Past Histories independently gathered by the clinical product support analyst/resident and the remaining scribed note accurately describes my personal service to the patient. 30 minutes of the total visit were spent face to face with patient. Greater than 50% of the time was spent for counseling and coordination of care, discussing treatment options and recommendations. Partha Saldana MD October 09, 2023 11:15 AM This note was generated with voice recognition software and may contain errors, including spelling, grammar, syntax and misrecognition of what was dictated, that are not fully corrected. documented in this encounter [facility] 09-27-2023 Note HNO ID: [id number] Author: Elif Callahan, PT Service: ? Author Type: Physical Therapist Type: Progress Notes Filed: 09/27/2023 12:17 PM Note Text: Episode Visit Count: 10 Therapist That Will Accept/Oversee The Plan Of Care: Elif Callahan Start of Care Date: 08/21/23 Onset Date: 07/17/23 Patient Identified by Name and Date of : Yes REHABILITATION AND SPORTS THERAPY PHYSICAL THERAPY TREATMENT NOTE ASSESSMENT: Nancy Pickard tolerated the session with decreased symptoms. She demonstrated good form with newly instructed exercises. The patient will continue to benefit from ongoing skilled physical therapy to progress toward set goals. PLAN FOR NEXT VISIT: Assess response to new exercises. Continue strengthening and manual techniques. SUBJECTIVE: Pt states she is feeling better than the end of last week. Notes she just felt really tight and achey. Pain: Pain Pain Level: 4 Pain Location: Neck - Left Post Treatment Pain Post Treatment Pain Level: 3 Post Treatment Pain Description: ( It definitely feels a lot looser and neck feels more mobile. ) OBJECTIVE MEASURES WITH LEVEL OF FUNCTION: Pt demonstrated correct form with newly instructed exercises and had significant releases during manual soft tissue techniques. TREATMENT: Therapeutic Exercise: 1: post shld circles x 20 2: upper trap stretches 3 x 30 sec holds 3: *scapular retractions with pink band 2 x 10 4: *supine deep neck flexor isometrics 5 sec holds 1 x 10 Skilled Intervention: Patient was educated in proper exercise technique and purpose for exercises. Reviewed and educated patient on additions/changes for home exercise program as above (*). Skilled judgment was used in selection of appropriate interventions. Provided written instruction for home exercise program to facilitate proper performance and compliance. Correct performance of therapeutic exercises was facilitated with verbal and visual cuing. Patient education as noted. Manual Therapy: 2: MFR cross hand techniques L cervical paraspinals, scalenes, upper traps 3: Suboccipital releases Skilled Intervention: Manual skills to improve joint mobility, ROM, and decrease pain. Utilized anatomy knowledge of the therapist, and assessment of patient's response to intervention. Billing Therapeutic Exercise Treatment Minutes: 30 Manual TherapyTreatment Minutes: 17 Skilled Treatment Time Minutes (timed and untimed codes): 47 Total Session Time (minutes): 47 Session Start Time : 1118 Session Stop Time : 1205 Elif Callahan PT [facility] 09-27-2023 History of Presen t illness Narrative Program_ID:[id number] Access Code: [email or web address] URL: [email or web address] Date: 09-27-2023 Prepared By: Elif Callahan Program Notes Exercises - Seated Shoulder Circles - 2-3 x daily - 7 x weekly - 2 - 10 - Seated Cervical Rotation AROM - 2 x daily - 7 x weekly - 2-3 - 10 - Seated Gentle Upper Trapezius Stretch - 2-3 x daily - 7 x weekly - 1 - 3-5 - Seated Scapular Retraction - 2 x daily - 7 x weekly - 1 - 10 - Seated Cervical Retraction - 2 x daily - 7 x weekly - 2 - 10 - Supine Deep Neck Flexor Training - 1-2 x daily - 7 x weekly - 2 - 10 - Scapular Retraction with Resistance - 2 x daily - 7 x weekly - 2 - 10 Episode Visit Count: 10 Therapist That Will Accept/Oversee The Plan Of Care: Elif Callahan Start of Care Date: 08/21/23 Onset Date: 07/17/23 Patient Identified by Name and Date of : Yes REHABILITATION AND SPORTS THERAPY PHYSICAL THERAPY TREATMENT NOTE ASSESSMENT: Nancy Pickard tolerated the session with decreased symptoms. She demonstrated good form with newly instructed exercises. The patient will continue to benefit from ongoing skilled physical therapy to progress toward set goals. PLAN FOR NEXT VISIT: Assess response to new exercises. Continue strengthening and manual techniques. SUBJECTIVE: Pt states she is feeling better than the end of last week. Notes she just felt really tight and achey. Pain: Pain Pain Level: 4 Pain Location: Neck - Left Post Treatment Pain Post Treatment Pain Level: 3 Post Treatment Pain Description: ( It definitely feels a lot looser and neck feels more mobile. ) OBJECTIVE MEASURES WITH LEVEL OF FUNCTION: Pt demonstrated correct form with newly instructed exercises and had significant releases during manual soft tissue techniques. TREATMENT: Therapeutic Exercise: 1: post shld circles x 20 2: upper trap stretches 3 x 30 sec holds 3: *scapular retractions with pink band 2 x 10 4: *supine deep neck flexor isometrics 5 sec holds 1 x 10 Skilled Intervention: Patient was educated in proper exercise technique and purpose for exercises. Reviewed and educated patient on additions/changes for home exercise program as above (*). Skilled judgment was used in selection of appropriate interventions. Provided written instruction for home exercise program to facilitate proper performance and compliance. Correct performance of therapeutic exercises was facilitated with verbal and visual cuing. Patient education as noted. Manual Therapy: 2: MFR cross hand techniques L cervical paraspinals, scalenes, upper traps 3: Suboccipital releases Skilled Intervention: Manual skills to improve joint mobility, ROM, and decrease pain. Utilized anatomy knowledge of the therapist, and assessment of patient's response to intervention. Billing Therapeutic Exercise Treatment Minutes: 30 Manual TherapyTreatment Minutes: 17 Skilled Treatment Time Minutes (timed and untimed codes): 47 Total Session Time (minutes): 47 Session Start Time : 1118 Session Stop Time : 1205 Elif Callahan PT documented in this encounter [facility] 09-18-2023 Note HNO ID: [id number] Author: Elif Callahan PT Service: ? Author Type: Physical Therapist Type: Progress Notes Filed: 09/18/2023 7:07 PM Note Text: Episode Visit Count: 9 Therapist That Will Accept/Oversee The Plan Of Care: Elif Callahan Start of Care Date: 08/21/23 Onset Date: 07/17/23 Patient Identified by Name and Date of : Yes REHABILITATION AND SPORTS THERAPY PHYSICAL THERAPY PROGRESS REPORT PLAN OF CARE UPDATE: Assessment: Nancy Pickard demonstrates improvements in sleeping and driving. She has progressed toward goals. Patient continues to present with impairments in range of motion, strength, symptom management, and tissue tenderness that interfere with lifting . Current prognosis is Excellent due to: current objective clinical presentation, good overall health status, good support system/ coping skills . She will benefit from continued skilled therapy services to meet the updated goals for this plan of care as noted below. Goals for Episode of Care: created on 08/21/23 through 09/21/23 Goals updated on 09/18/2023. Independent in a Home Exercise Program. (Met) Patient will decrease pain rating by 2 points to meet minimal clinical important difference for numeric pain rating scale. (Partially Met) Drive with no aggravation of pain/symptoms. (Not Met) Sleep throughout the night without pain/symptoms. (Partially Met)-most nights sleeping through. Knowledgeable RE: prophylaxis. (Met) Patient will increase strength of cervical and scapular musculature to 4+ to 5/5 to allow for improve ability to maintain proper posture, improve mechanics, and decrease pain. (Partially Met) Patient Goals: To get back to normal ROM without pain or without the vision spots. Planned Interventions, Frequency, and Duration: 1x/week, 4 weeks Total Number of Visits Planned: 4 Patient to be seen for Therapeutic exercise (29071), Neuromuscular re-education (31586), Manual therapy (46677), Self-longterm management (82805), Patient/Family/Caregiver Education PLAN FOR NEXT VISIT: Continue exercise adn manual techniques, with addition of cervical strengthening as tolerated. SUBJECTIVE: Pt states about an hour after last treatment she started to get a bad headache and neck was sore. She notes she used a heating pad and did mary eself-massage over the weekend and it is better now. She states she is going to follow up [facility] Pl[facility] for the paraesthesias R lip and face areas. She notes if she looks over her L shld (driving) can still get sharp pain down neck, but definitely decreased (not moving as much of body to turn and doesn't pain as often). Pt sttaes she sleeps through the night most nights now without being awoken by pain. Functional Limitations: lifting GRADED SYMPTOM CHECKLIST Headache: (yes, intermittent, no migraines since starting therapy) Dizziness: (none) Sensitivity to light: (none) Pain: Pain Pain Level: 5 Pain Location: Neck - Left Post Treatment Pain Post Treatment Pain Level: 4 PROMIS Scales Higher is Better 09/04/2023 Phys Func - Score 50 (within normal limits) Phys Func - Percentile 50 % Self-Eff Symptom - Score 46 (Average) Self-Eff Symptom - Percentile 34 % T-scores: mean of general population = 50. 5 points is clinically meaningfully difference Percentiles provide an indication of how the patient's score ranks in relation to the general population. Higher percentile rankings indicate better function/quality of life. 50th percentile is the average of the general population and indicates half of respondents had a worse score. OBJECTIVE MEASURES WITH LEVEL OF FUNCTION: Spine Observations L Cervical Spine Palpation Tenderness: (palpable soft tissue restrictions L cervical and upper trap) Cervical Spine ROM Cervical Flexion AROM (degrees) : 45 Degrees Cervical Extension AROM (degrees) : 50 Degrees (no pain) Cervical Side-Bend Right AROM (degrees): 40 Degrees (sore) Cervical Side-Bend Left AROM (degrees) : 40 Degrees (pain) Cervical Rotation Right AROM (degrees) : 65 Degrees (pulling a little on the left neck) Cervical Rotation Left AROM (degrees) : 65 Degrees (pressure) UE and Cervical Strength Strength Tested: Scapula, Cervical Cervical Strength: 4+, except flexion 4 with some discomfort TREATMENT: Therapeutic Exercise: 1: post shld circles x 20 2: upper trap stretches 3 x 30 sec holds 3: cervical retractions 2 x 10 4: scapular retractions 5 sec holds x 10 Skilled Intervention: Patient was educated in proper exercise technique and purpose for exercises. Reviewed and educated patient on additions/changes for home exercise program. Skilled judgment was used in selection of appropriate interventions. Correct performance of therapeutic exercises was facilitated with verbal and visual cuing. Additional time necessary for objective measurements and reassessment due to plan of care update. Patient education as not (more content not included)... [facility] 09-18-2023 History of Presen t illness Narrative Episode Visit Count: 9 Therapist That Will Accept/Oversee The Plan Of Care: Elif Callahan Start of Care Date: 08/21/23 Onset Date: 07/17/23 Patient Identified by Name and Date of : Yes REHABILITATION AND SPORTS THERAPY PHYSICAL THERAPY PROGRESS REPORT PLAN OF CARE UPDATE: Assessment: Nancy Pickard demonstrates improvements in sleeping and driving. She has progressed toward goals. Patient continues to present with impairments in range of motion, strength, symptom management, and tissue tenderness that interfere with lifting . Current prognosis is Excellent due to: current objective clinical presentation, good overall health status, good support system/ coping skills . She will benefit from continued skilled therapy services to meet the updated goals for this plan of care as noted below. Goals for Episode of Care: created on 08/21/23 through 09/21/23 Goals updated on 09/18/2023. Independent in a Home Exercise Program. (Met) Patient will decrease pain rating by 2 points to meet minimal clinical important difference for numeric pain rating scale. (Partially Met) Drive with no aggravation of pain/symptoms. (Not Met) Sleep throughout the night without pain/symptoms. (Partially Met)-most nights sleeping through. Knowledgeable RE: prophylaxis. (Met) Patient will increase strength of cervical and scapular musculature to 4+ to 5/5 to allow for improve ability to maintain proper posture, improve mechanics, and decrease pain. (Partially Met) Patient Goals: To get back to normal ROM without pain or without the vision spots. Planned Interventions, Frequency, and Duration: 1x/week, 4 weeks Total Number of Visits Planned: 4 Patient to be seen for Therapeutic exercise (78882), Neuromuscular re-education (71752), Manual therapy (89648), Self-longterm management (06653), Patient/Family/Caregiver Education PLAN FOR NEXT VISIT: Continue exercise adn manual techniques, with addition of cervical strengthening as tolerated. SUBJECTIVE: Pt states about an hour after last treatment she started to get a bad headache and neck was sore. She notes she used a heating pad and did mary eself-massage over the weekend and it is better now. She states she is going to follow up [facility] for the paraesthesias R lip and face areas. She notes if she looks over her L shld (driving) can still get sharp pain down neck, but definitely decreased (not moving as much of body to turn and doesn't pain as often). Pt sttaes she sleeps through the night most nights now without being awoken by pain. Functional Limitations: lifting GRADED SYMPTOM CHECKLIST Headache: (yes, intermittent, no migraines since starting therapy) Dizziness: (none) Sensitivity to light: (none) Pain: Pain Pain Level: 5 Pain Location: Neck - Left Post Treatment Pain Post Treatment Pain Level: 4 PROMIS Scales Higher is Better 09/04/2023 Phys Func - Score 50 (within normal limits) Phys Func - Percentile 50 % Self-Eff Symptom - Score 46 (Average) Self-Eff Symptom - Percentile 34 % T-scores: mean of general population = 50. 5 points is clinically meaningfully difference Percentiles provide an indication of how the patient's score ranks in relation to the general population. Higher percentile rankings indicate better function/quality of life. 50th percentile is the average of the general population and indicates half of respondents had a worse score. OBJECTIVE MEASURES WITH LEVEL OF FUNCTION: Spine Observations L Cervical Spine Palpation Tenderness: (palpable soft tissue restrictions L cervical and upper trap) Cervical Spine ROM Cervical Flexion AROM (degrees) : 45 Degrees Cervical Extension AROM (degrees) : 50 Degrees (no pain) Cervical Side-Bend Right AROM (degrees): 40 Degrees (sore) Cervical Side-Bend Left AROM (degrees) : 40 Degrees (pain) Cervical Rotation Right AROM (degrees) : 65 Degrees (pulling a little on the left neck) Cervical Rotation Left AROM (degrees) : 65 Degrees (pressure) UE and Cervical Strength Strength Tested: Scapula, Cervical Cervical Strength: 4+, except flexion 4 with some discomfort TREATMENT: Therapeutic Exercise: 1: post shld circles x 20 2: upper trap stretches 3 x 30 sec holds 3: cervical retractions 2 x 10 4: scapular retractions 5 sec holds x 10 Skilled Intervention: Patient was educated in proper exercise technique and purpose for exercises. Reviewed and educated patient on additions/changes for home exercise program. Skilled judgment was used in selection of appropriate interventions. Correct performance of therapeutic exercises was facilitated with verbal and visual cuing. Additional time necessary for objective measurements and reassessment due to plan of care update. Patient education as noted. Manual Therapy: 2: MFR cross hand techniques L cervical paraspinals, scalenes, upper traps 3: IASTM using Hawk Contact Clerk scanner tool to cervical paraspinals, scalenes, upper traps. Skilled Intervention: Manual skills to improve joint mobility, ROM, and decrease pain. Utilized anatomy knowledge of the therapist, and assessment of patient's response to intervention. Billing Therapeutic Exercise Treatment Minutes: 28 Manual TherapyTreatment Minutes: 15 Skilled Treatment Time Minutes (timed and untimed codes): 43 Total Session Time (minutes): 43 Session Start Time : 1201 Session Stop Time : 1244 Elif Callahan PT documented in this encounter [facility] 09-15-2023 Note HNO ID: [id number] Author: Elif Callahan PT Service: ? Author Type: Physical Therapist Type: Progress Notes Filed: 09/15/2023 12:30 PM Note Text: Episode Visit Count: 8 Therapist That Will Accept/Oversee The Plan Of Care: Elif Callahan Start of Care Date: 08/21/23 Onset Date: 07/17/23 Patient Identified by Name and Date of : Yes REHABILITATION AND SPORTS THERAPY PHYSICAL THERAPY TREATMENT NOTE ASSESSMENT: Nancy Pickard tolerated the session with decreased symptoms. She demonstrated improvements in pain with exercise. The patient will continue to benefit from ongoing skilled physical therapy to progress toward set goals. PLAN FOR NEXT VISIT: Continue with IASTM and manual. Advance cervical exercises as tolerated. SUBJECTIVE: Pt reports that her neck is not feeling terrible today. She states that she feels she has more ROM, but it still just hurts. Pain: Pain Pain Level: 5 Pain Location: Neck - Left Post Treatment Pain Post Treatment Pain Level: Better OBJECTIVE MEASURES WITH LEVEL OF FUNCTION: TREATMENT: Therapeutic Exercise: 1: post shld circles x 20 2: upper trap stretches 3 x 30 sec holds 3: Levator scap stretch 3x30 seconds L 4: cervical retractions 2 x 10 5: Cervical retraction with lower cervical extension 1x10 6: scapular retractions 5 sec holds x 10 Skilled Intervention: Patient was educated in proper exercise technique and purpose for exercises. Skilled judgment was used in selection of appropriate interventions. Correct performance of therapeutic exercises was facilitated with verbal and visual cuing. Manual Therapy: 2: MFR cross hand techniques L cervical paraspinals, scalenes, upper traps 3: IASTM using Hawk Contact Clerk boomerang tool to cervical paraspinals, scalenes, upper traps. Skilled Intervention: Manual skills to improve joint mobility, ROM, and decrease pain. Utilized anatomy knowledge of the therapist, and assessment of patient's response to intervention. Billing Therapeutic Exercise Treatment Minutes: 28 Manual TherapyTreatment Minutes: 17 Skilled Treatment Time Minutes (timed and untimed codes): 45 Total Session Time (minutes): 45 Session Start Time : 1015 Session Stop Time : 1100 Brianna Vasquez, JUNIOR DESIGNER Elif Callahan, PT [facility] 09-15-2023 History of Presen t illness Narrative Episode Visit Count: 8 Therapist That Will Accept/Oversee The Plan Of Care: Elif Callahan Start of Care Date: 08/21/23 Onset Date: 07/17/23 Patient Identified by Name and Date of : Yes REHABILITATION AND SPORTS THERAPY PHYSICAL THERAPY TREATMENT NOTE ASSESSMENT: Nancy Pickard tolerated the session with decreased symptoms. She demonstrated improvements in pain with exercise. The patient will continue to benefit from ongoing skilled physical therapy to progress toward set goals. PLAN FOR NEXT VISIT: Continue with IASTM and manual. Advance cervical exercises as tolerated. SUBJECTIVE: Pt reports that her neck is not feeling terrible today. She states that she feels she has more ROM, but it still just hurts. Pain: Pain Pain Level: 5 Pain Location: Neck - Left Post Treatment Pain Post Treatment Pain Level: Better OBJECTIVE MEASURES WITH LEVEL OF FUNCTION: TREATMENT: Therapeutic Exercise: 1: post shld circles x 20 2: upper trap stretches 3 x 30 sec holds 3: Levator scap stretch 3x30 seconds L 4: cervical retractions 2 x 10 5: Cervical retraction with lower cervical extension 1x10 6: scapular retractions 5 sec holds x 10 Skilled Intervention: Patient was educated in proper exercise technique and purpose for exercises. Skilled judgment was used in selection of appropriate interventions. Correct performance of therapeutic exercises was facilitated with verbal and visual cuing. Manual Therapy: 2: MFR cross hand techniques L cervical paraspinals, scalenes, upper traps 3: IASTM using Hawk Contact Clerk boomerang tool to cervical paraspinals, scalenes, upper traps. Skilled Intervention: Manual skills to improve joint mobility, ROM, and decrease pain. Utilized anatomy knowledge of the therapist, and assessment of patient's response to intervention. Billing Therapeutic Exercise Treatment Minutes: 28 Manual TherapyTreatment Minutes: 17 Skilled Treatment Time Minutes (timed and untimed codes): 45 Total Session Time (minutes): 45 Session Start Time : 1015 Session Stop Time : 1100 LIZ Luz PT documented in this encounter [facility] 09-12-2023 Note HNO ID: [id number] Author: Bertha Blanco PT Service: ? Author Type: Physical Therapist Type: Progress Notes Filed: 09/12/2023 11:31 AM Note Text: Episode Visit Count: 7 Therapist That Will Accept/Oversee The Plan Of Care: Elif Callahan Start of Care Date: 08/21/23 Onset Date: 07/17/23 Patient Identified by Name and Date of : Yes REHABILITATION AND SPORTS THERAPY PHYSICAL THERAPY TREATMENT NOTE ASSESSMENT: Nancy Pickard tolerated the session with decreased symptoms. She demonstrated improvements in tightness of L upper trap and paraspinals with use of IASTM. The patient will continue to benefit from ongoing skilled physical therapy to progress toward set goals. PLAN FOR NEXT VISIT: Consider adding cervical retraction wiht extension. Continue with manual for soft tissue restrictions. SUBJECTIVE: Pt reports that she is not feeling terrible today, my neck doesn't feel too bad . Pain: Pain Pain Level: 4 Pain Location: Neck - Left Post Treatment Pain Post Treatment Pain Level: Better OBJECTIVE MEASURES WITH LEVEL OF FUNCTION: Petechiae on L UT after IASTM. TREATMENT: Therapeutic Exercise: 1: post shld circles x 20 2: upper trap stretches 3 x 30 sec holds 3: Levator scap stretch 3x30 seconds L 4: cervical retractions 2 x 10 5: scapular retractions 5 sec holds x 10 Skilled Intervention: Patient was educated in proper exercise technique and purpose for exercises. Skilled judgment was used in selection of appropriate interventions. Correct performance of therapeutic exercises was facilitated with verbal and visual cuing. Manual Therapy: 1: suboccipital releases with pt in supine x 5 min 2: MFR cross hand techniques L cervical paraspinals, scalenes, upper traps 3: IASTM using Hawk Contact Clerk boomerang tool to cervical paraspinals, scalenes, upper traps. Skilled Intervention: Manual skills to improve joint mobility, ROM, and decrease pain. Utilized anatomy knowledge of the therapist, and assessment of patient's response to intervention. Billing Therapeutic Exercise Treatment Minutes: 23 Manual TherapyTreatment Minutes: 22 Skilled Treatment Time Minutes (timed and untimed codes): 45 Total Session Time (minutes): 45 Session Start Time : 1015 Session Stop Time : 1100 LIZ Luz, PT [facility] 09-12-2023 History of Presen t illness Narrative Episode Visit Count: 7 Therapist That Will Accept/Oversee The Plan Of Care: Elif Callahan Start of Care Date: 08/21/23 Onset Date: 07/17/23 Patient Identified by Name and Date of : Yes REHABILITATION AND SPORTS THERAPY PHYSICAL THERAPY TREATMENT NOTE ASSESSMENT: Nancy Pickard tolerated the session with decreased symptoms. She demonstrated improvements in tightness of L upper trap and paraspinals with use of IASTM. The patient will continue to benefit from ongoing skilled physical therapy to progress toward set goals. PLAN FOR NEXT VISIT: Consider adding cervical retraction wiht extension. Continue with manual for soft tissue restrictions. SUBJECTIVE: Pt reports that she is not feeling terrible today, my neck doesn't feel too bad . Pain: Pain Pain Level: 4 Pain Location: Neck - Left Post Treatment Pain Post Treatment Pain Level: Better OBJECTIVE MEASURES WITH LEVEL OF FUNCTION: Petechiae on L UT after IASTM. TREATMENT: Therapeutic Exercise: 1: post shld circles x 20 2: upper trap stretches 3 x 30 sec holds 3: Levator scap stretch 3x30 seconds L 4: cervical retractions 2 x 10 5: scapular retractions 5 sec holds x 10 Skilled Intervention: Patient was educated in proper exercise technique and purpose for exercises. Skilled judgment was used in selection of appropriate interventions. Correct performance of therapeutic exercises was facilitated with verbal and visual cuing. Manual Therapy: 1: suboccipital releases with pt in supine x 5 min 2: MFR cross hand techniques L cervical paraspinals, scalenes, upper traps 3: IASTM using Hawk Contact Clerk boomerang tool to cervical paraspinals, scalenes, upper traps. Skilled Intervention: Manual skills to improve joint mobility, ROM, and decrease pain. Utilized anatomy knowledge of the therapist, and assessment of patient's response to intervention. Billing Therapeutic Exercise Treatment Minutes: 23 Manual TherapyTreatment Minutes: 22 Skilled Treatment Time Minutes (timed and untimed codes): 45 Total Session Time (minutes): 45 Session Start Time : 1015 Session Stop Time : 1100 LIZ Luz PT documented in this encounter [facility] 09-08-2023 Note HNO ID: [id number] Author: Elif Callahan PT Service: ? Author Type: Physical Therapist Type: Progress Notes Filed: 09/08/2023 12:26 PM Note Text: Episode Visit Count: 6 Therapist That Will Accept/Oversee The Plan Of Care: Elif Callahan Start of Care Date: 08/21/23 Onset Date: 07/17/23 Patient Identified by Name and Date of : Yes REHABILITATION AND SPORTS THERAPY PHYSICAL THERAPY TREATMENT NOTE ASSESSMENT: Nancy Pickard tolerated the session with no issues. She demonstrated difficulty with soft tissue restrictions and improvements in overall pain level. The patient will continue to benefit from ongoing skilled physical therapy to progress toward set goals. PLAN FOR NEXT VISIT: Continue with manual techniques, exercise, and IASTM. SUBJECTIVE: Pt states she is overall feeling better, but pain still on L side only. She reports she has been doing some massaging to the R lateral nostril area as sometimes she feels the scar is tight and pulling at her cheek. Pain: Pain Pain Level: 4 Pain Location: Neck - Left Post Treatment Pain Post Treatment Pain Level: (not rated numerically) Post Treatment Symptoms: Pt states, That massage felt really good, like it worked out some tight spots. OBJECTIVE MEASURES WITH LEVEL OF FUNCTION: Posture / Alignment UE Observations: Soft tissue restrictions appreciated L cervical, upper trap musculature during IASTM. TREATMENT: Therapeutic Exercise: 1: post shld circles x 20 2: Encouraged self-massage of scar line on R nostril and demonstrated manual techniques. 3: upper trap stretches 3 x 30 sec holds 4: Levator scap stretch 3x30 seconds L 5: cervical retractions 2 x 10 6: scapular retractions 5 sec holds x 10 Skilled Intervention: Patient was educated in proper exercise technique and purpose for exercises. Reviewed and educated patient on additions/changes for home exercise program. Skilled judgment was used in selection of appropriate interventions. Correct performance of therapeutic exercises was facilitated with verbal and visual cuing. Patient education as noted. Manual Therapy: 1: suboccipital releases with pt in supine x 5 min 2: MFR cross hand techniques L cervical paraspinals, scalenes, upper traps 3: IASTM using Hawk Contact Clerk boomerang tool to cervical paraspinals, scalenes, upper traps. Skilled Intervention: Manual skills to improve joint mobility, ROM, and decrease pain. Utilized anatomy knowledge of the therapist, and assessment of patient's response to intervention. Billing Therapeutic Exercise Treatment Minutes: 25 Manual TherapyTreatment Minutes: 20 Skilled Treatment Time Minutes (timed and untimed codes): 45 Total Session Time (minutes): 45 Session Start Time : 944 Session Stop Time : 1030 Elif Lemon, PT [facility] 09-08-2023 History of Presen t illness Narrative Episode Visit Count: 6 Therapist That Will Accept/Oversee The Plan Of Care: Elif Callahan Start of Care Date: 08/21/23 Onset Date: 07/17/23 Patient Identified by Name and Date of : Yes REHABILITATION AND SPORTS THERAPY PHYSICAL THERAPY TREATMENT NOTE ASSESSMENT: Nancy Pickard tolerated the session with no issues. She demonstrated difficulty with soft tissue restrictions and improvements in overall pain level. The patient will continue to benefit from ongoing skilled physical therapy to progress toward set goals. PLAN FOR NEXT VISIT: Continue with manual techniques, exercise, and IASTM. SUBJECTIVE: Pt states she is overall feeling better, but pain still on L side only. She reports she has been doing some massaging to the R lateral nostril area as sometimes she feels the scar is tight and pulling at her cheek. Pain: Pain Pain Level: 4 Pain Location: Neck - Left Post Treatment Pain Post Treatment Pain Level: (not rated numerically) Post Treatment Symptoms: Pt states, That massage felt really good, like it worked out some tight spots. OBJECTIVE MEASURES WITH LEVEL OF FUNCTION: Posture / Alignment UE Observations: Soft tissue restrictions appreciated L cervical, upper trap musculature during IASTM. TREATMENT: Therapeutic Exercise: 1: post shld circles x 20 2: Encouraged self-massage of scar line on R nostril and demonstrated manual techniques. 3: upper trap stretches 3 x 30 sec holds 4: Levator scap stretch 3x30 seconds L 5: cervical retractions 2 x 10 6: scapular retractions 5 sec holds x 10 Skilled Intervention: Patient was educated in proper exercise technique and purpose for exercises. Reviewed and educated patient on additions/changes for home exercise program. Skilled judgment was used in selection of appropriate interventions. Correct performance of therapeutic exercises was facilitated with verbal and visual cuing. Patient education as noted. Manual Therapy: 1: suboccipital releases with pt in supine x 5 min 2: MFR cross hand techniques L cervical paraspinals, scalenes, upper traps 3: IASTM using Hawk Contact Clerk boomerang tool to cervical paraspinals, scalenes, upper traps. Skilled Intervention: Manual skills to improve joint mobility, ROM, and decrease pain. Utilized anatomy knowledge of the therapist, and assessment of patient's response to intervention. Billing Therapeutic Exercise Treatment Minutes: 25 Manual TherapyTreatment Minutes: 20 Skilled Treatment Time Minutes (timed and untimed codes): 45 Total Session Time (minutes): 45 Session Start Time : 944 Session Stop Time : 1030 Elif Callahan PT documented in this encounter [facility] 09-06-2023 Note HNO ID: [id number] Author: Anjum Christy MD Service: ? Author Type: Physician Type: Progress Notes Filed: 09/06/2023 2:59 PM Note Text: HPI: This is Ms. Nancy Pickard a 28 year old female from who presents to the [facility] neurology department with a chief complaint of facial weakness [facility] [id number] Patient here for ER follow-up on 07/17. Was evaluated there after a syncopal episode following blood donation where she fell and hit her head. She has was diagnosed with a concussion and nasal bone fracture and also had a laceration to the lateral right lower part of her nose. Has donated blood previously with no problems, but not since before [facility]. Saw ENT on 07/21 and everything was fine, still healing. Is unable to wear her glasses still though due to the discomfort on the bridge of her nose where her glasses rest. Is still having a lot of neck and shoulder pain following this incident, decreased ROM, worse with certain movements. Was rotating ice/heat, tylenol/ibuprofen. Also has decreased sensation in her face, specifically to the right upper lip/right nostril and weakness to facial musculature, cannot smile fully. Sometimes has some discomfort in this area, feels like when something 'falls asleep'. This doesn't seem to be improving since her ER visit. She has residual numbness over the right face near her laceration. Area between the laceration and the top upper lip. She had whiplash after the fall, she is going to pt If she looks over her shoulder too quickly she feels like her vision goes out, she sweats, feels like she is going to pass out She couldn't move the right side of her lip and cheek initially, that has improved over the past couple of weeks with PT. PMH: PAST MEDICAL HISTORY Diagnosis Date Asthma Gastritis Hiatal hernia Lyme disease Migraines Primary dysmenorrhea Seasonal allergies Medications: Current Outpatient Medications Medication Sig Dispense Refill cyclobenzaprine (FLEXERIL) 5 mg tablet Take 1 tablet by mouth three times daily as needed. 20 tablet 0 albuterol HFA (PROAIR HFA) 90 mcg/actuation inhaler Inhale 2 Puffs as instructed every 6 hours as needed. 18 g 0 ondansetron orally disintegrating (ZOFRAN ODT) 8 mg disintegrating tablet Take 1 tablet by mouth once daily. DISSOLVE ON TONGUE 15 tablet 0 rimegepant (NURTEC ODT) 75 mg disintegrating tablet Take 1 tablet by mouth once daily as needed (migraine). (Patient not taking: Reported on 08/09/2023) 8 tablet 0 fluticasone (FLONASE ALLERGY RELIEF) 50 mcg/actuation nasal spray Use 1 [place] in each nostril twice daily. 18.2 mL 1 CETIRIZINE HCL (ZYRTEC ORAL) Take by mouth. No current facility-administered medications for this visit. Allergies: ALLERGIES Allergen Reactions Latex Hives Biaxin [Clarithromy* Hives Seasonal Allergies Hives Social History: Social History Tobacco Use Smoking status: Never Smokeless tobacco: Never Substance Use Topics Alcohol use: No Drug use: Never Family History: FAMILY HISTORY Problem Relation Age of Onset Diabetes Mother Kidney Disease Mother Depression Mother Hypertension Mother other (diverticulitis) Mother other (IBS) Mother other (Bleeding problem) Mother Cancer Maternal Grandmother Diabetes Maternal Grandmother Heart disease Maternal Grandmother Hypertension Maternal Grandmother Diabetes Paternal Grandmother Diabetes Paternal Grandfather ROS: A complete review of systems was performed. All systems negative other than those mentioned in HPI. Physical Exam: Vitals: LMP 08/05/2023 (Exact Date) BP 132/86 (BP Site: Left Arm, BP Position: Sitting, BP Cuff Size: Large Adult) Pulse 64 Ht 170.2 cm (5' 7 ) Wt 52.9 kg (116 lb 9.6 oz) LMP 08/05/2023 (Exact Date) SpO2 100% BMI 18.26 kg/m? General appearance: no acute distress. Neurological Exam: MSE: Alert and oriented to person, place, and time. Speech is fluent without dysarthria or aphasia. Recall is intact to recent and remote events. Attention and concentration are intact. Fund of knowledge is intact. CN: Pupils equally round and reactive to light. Extraoccular muscles intact. Visual [place] full., tongue/palate midline, SCM 5/5 bilaterally. Hearing intact to voice. Mild asymetry of the right lip with decreased elevated of right lip. Facial sensation reduced to LT and pinprick right nose below the laceration point, and between right lip and tip of the nose on the right Gait: Normal. Labs: WBC Date Value Ref Range Status 12/14/2018 7.54 3.70 - 11.00 k/uL Final Hemoglobin Date Value Ref Range Status 12/14/2018 13.9 11.5 - 15.5 g/dL Final Hematocrit Date Value Ref Range Status 12/14/2018 42.0 36.0 - 46.0 % Final MCV Date Value Ref Range Status 12/14/2018 92.7 80.0 - 100.0 fL Final Platelet Count Date Value Ref Range Status 12/14/2018 2 (more content not included)... [facility] 09-04-2023 Note HNO ID: [id number] Author: Elif Callahan PT Service: ? Author Type: Physical Therapist Type: Progress Notes Filed: 09/04/2023 3:31 PM Note Text: Episode Visit Count: 5 Therapist That Will Accept/Oversee The Plan Of Care: Elif Callahan Start of Care Date: 08/21/23 Onset Date: 07/17/23 Patient Identified by Name and Date of : Yes REHABILITATION AND SPORTS THERAPY PHYSICAL THERAPY TREATMENT NOTE ASSESSMENT: Nancy Pickard tolerated the session with fatigue, decreased symptoms, and expected muscle soreness. She demonstrated difficulty with full cervical rotation from one side to the other. The patient will continue to benefit from ongoing skilled physical therapy to progress toward set goals. PLAN FOR NEXT VISIT: Continue with ther ex and manual techniques. May add soft tissue mobs with tennis/lacrosse ball, IASTM or gentle grade 1 glides to address remaining soft tissue restrictions. SUBJECTIVE: Pt reports that her neck is not feeling too bad today. Pt states still increased pain on the left compared to the R, the R side of her neck doesn't seem to bother her much. Pt reports that mobility has improved on the L side of the neck, but nothing is helping to improve the pain. Pain: Pain Pain Level: 4 (increases to high 6/10 when it really bothers me ) Pain Location: Neck - Left, Neck, Elbow - Left Description: Aching Frequency: Intermittent Post Treatment Pain Post Treatment Pain Level: Better Post Treatment Pain Location: Neck - Left, Neck OBJECTIVE MEASURES WITH LEVEL OF FUNCTION: TTP C4. TREATMENT: Therapeutic Exercise: 1: post shld circles x 20 2: Levator scap stretch 3x30 seconds L 3: upper trap stretches 3 x 30 sec holds 4: cervical retractions 2 x 10 5: AROM cervical rotations (with gentle stretch held at end range) 2 x 10 (split motion, as full motion caused increase in pain on L side of neck.) 6: scapular retractions 5 sec holds x 10 Skilled Intervention: Patient was educated in proper exercise technique and purpose for exercises. Skilled judgment was used in selection of appropriate interventions. Correct performance of therapeutic exercises was facilitated with verbal and visual cuing. Manual Therapy: 1: suboccipital releases with pt in supine x 5 min 2: Manual rotation of cervical spine x 10 each direction 3: Soft tissue mobs to cervical paraspinals, scalenes, upper traps. Skilled Intervention: Manual skills to improve joint mobility, ROM, and decrease pain. Utilized anatomy knowledge of the therapist, and assessment of patient's response to intervention. Billing Therapeutic Exercise Treatment Minutes: 27 Manual TherapyTreatment Minutes: 16 Skilled Treatment Time Minutes (timed and untimed codes): 43 Total Session Time (minutes): 43 Session Start Time : 1142 Session Stop Time : 1225 Brianna Vasquez, JUNIOR DESIGNER Elif Callahan, PT [facility] 09-04-2023 History of Presen t illness Narrative Episode Visit Count: 5 Therapist That Will Accept/Oversee The Plan Of Care: Elif Callahan Start of Care Date: 08/21/23 Onset Date: 07/17/23 Patient Identified by Name and Date of : Yes REHABILITATION AND SPORTS THERAPY PHYSICAL THERAPY TREATMENT NOTE ASSESSMENT: Nancy Pickard tolerated the session with fatigue, decreased symptoms, and expected muscle soreness. She demonstrated difficulty with full cervical rotation from one side to the other. The patient will continue to benefit from ongoing skilled physical therapy to progress toward set goals. PLAN FOR NEXT VISIT: Continue with ther ex and manual techniques. May add soft tissue mobs with tennis/lacrosse ball, IASTM or gentle grade 1 glides to address remaining soft tissue restrictions. SUBJECTIVE: Pt reports that her neck is not feeling too bad today. Pt states still increased pain on the left compared to the R, the R side of her neck doesn't seem to bother her much. Pt reports that mobility has improved on the L side of the neck, but nothing is helping to improve the pain. Pain: Pain Pain Level: 4 (increases to high 6/10 when it really bothers me ) Pain Location: Neck - Left, Neck, Elbow - Left Description: Aching Frequency: Intermittent Post Treatment Pain Post Treatment Pain Level: Better Post Treatment Pain Location: Neck - Left, Neck OBJECTIVE MEASURES WITH LEVEL OF FUNCTION: TTP C4. TREATMENT: Therapeutic Exercise: 1: post shld circles x 20 2: Levator scap stretch 3x30 seconds L 3: upper trap stretches 3 x 30 sec holds 4: cervical retractions 2 x 10 5: AROM cervical rotations (with gentle stretch held at end range) 2 x 10 (split motion, as full motion caused increase in pain on L side of neck.) 6: scapular retractions 5 sec holds x 10 Skilled Intervention: Patient was educated in proper exercise technique and purpose for exercises. Skilled judgment was used in selection of appropriate interventions. Correct performance of therapeutic exercises was facilitated with verbal and visual cuing. Manual Therapy: 1: suboccipital releases with pt in supine x 5 min 2: Manual rotation of cervical spine x 10 each direction 3: Soft tissue mobs to cervical paraspinals, scalenes, upper traps. Skilled Intervention: Manual skills to improve joint mobility, ROM, and decrease pain. Utilized anatomy knowledge of the therapist, and assessment of patient's response to intervention. Billing Therapeutic Exercise Treatment Minutes: 27 Manual TherapyTreatment Minutes: 16 Skilled Treatment Time Minutes (timed and untimed codes): 43 Total Session Time (minutes): 43 Session Start Time : 1142 Session Stop Time : 1225 LIZ Luz PT documented in this encounter [facility] 09-01-2023 Note HNO ID: [id number] Author: Elif Callahan PT Service: ? Author Type: Physical Therapist Type: Progress Notes Filed: 09/01/2023 2:56 PM Note Text: Episode Visit Count: 4 Therapist That Will Accept/Oversee The Plan Of Care: JustinsiennaElif Start of Care Date: 08/21/23 Onset Date: 07/17/23 Patient Identified by Name and Date of : Yes REHABILITATION AND SPORTS THERAPY PHYSICAL THERAPY TREATMENT NOTE ASSESSMENT: Nancy iPckard tolerated the session with no issues. She demonstrated improvements in cervical AROM and reports of decreased pain and centralization. The patient will continue to benefit from ongoing skilled physical therapy to progress toward set goals. PLAN FOR NEXT VISIT: Continue with ther ex and manual techniques. May add soft tissue mobs with tennis/lacrosse ball, IASTM or gentle grade 1 glides to address remaining soft tissue restrictions. SUBJECTIVE: Pt notes she is not really feeling a whole lot on the R side like I was before. It's all on the left. Even when tilting head to right or left, feels it on L either way. Pain: Pain Pain Level: 5 Pain Location: Neck - Left, Neck Post Treatment Pain Post Treatment Pain Level: (not rated) OBJECTIVE MEASURES WITH LEVEL OF FUNCTION: Cervical Spine ROM Cervical Flexion AROM (degrees) : 35 Degrees (end range tightness) Cervical Extension AROM (degrees) : 30 Degrees (end range tightness) Cervical Side-Bend Right AROM (degrees): 35 Degrees (end range L stretch/tight) Cervical Side-Bend Left AROM (degrees) : 40 Degrees (end range pain) Cervical Rotation Right AROM (degrees) : 63 Degrees (tightness L cervical) Cervical Rotation Left AROM (degrees) : 60 Degrees (end range pain) TREATMENT: Therapeutic Exercise: 1: post shld circles x 20 2: upper trap stretches 3 x 30 sec holds 3: cervical retractions 2 x 10 4: AROM cervical rotations (with gentle stretch held at end range) 2 x 10 5: scapular retractions 5 sec holds x 10 6: snarl /upper lip elevation x 10 7: exagerated smiling x 10 Skilled Intervention: Patient was educated in proper exercise technique and purpose for exercises. Reviewed and educated patient on additions/changes for home exercise program. Skilled judgment was used in selection of appropriate interventions. Correct performance of therapeutic exercises was facilitated with verbal and visual cuing. Patient education as noted. Manual Therapy: 1: suboccipital releases with pt in supine x 5 min 2: MFR cross hand techniques cervical paraspinals, scalenes, upper traps with pt in supine 3: Soft tissue mobs to cervical paraspinals, scalenes, upper traps. Skilled Intervention: Manual skills to improve joint mobility, ROM, and decrease pain. Utilized anatomy knowledge of the therapist, and assessment of patient's response to intervention. Billing Therapeutic Exercise Treatment Minutes: 28 Manual TherapyTreatment Minutes: 22 Skilled Treatment Time Minutes (timed and untimed codes): 50 Total Session Time (minutes): 50 Session Start Time : 1345 Session Stop Time : 1435 Elif Callahan, PT [facility] 09-01-2023 History of Presen t illness Narrative Episode Visit Count: 4 Therapist That Will Accept/Oversee The Plan Of Care: JustinsiennaElif Start of Care Date: 08/21/23 Onset Date: 07/17/23 Patient Identified by Name and Date of : Yes REHABILITATION AND SPORTS THERAPY PHYSICAL THERAPY TREATMENT NOTE ASSESSMENT: Nancy Pickard tolerated the session with no issues. She demonstrated improvements in cervical AROM and reports of decreased pain and centralization. The patient will continue to benefit from ongoing skilled physical therapy to progress toward set goals. PLAN FOR NEXT VISIT: Continue with ther ex and manual techniques. May add soft tissue mobs with tennis/lacrosse ball, IASTM or gentle grade 1 glides to address remaining soft tissue restrictions. SUBJECTIVE: Pt notes she is not really feeling a whole lot on the R side like I was before. It's all on the left. Even when tilting head to right or left, feels it on L either way. Pain: Pain Pain Level: 5 Pain Location: Neck - Left, Neck Post Treatment Pain Post Treatment Pain Level: (not rated) OBJECTIVE MEASURES WITH LEVEL OF FUNCTION: Cervical Spine ROM Cervical Flexion AROM (degrees) : 35 Degrees (end range tightness) Cervical Extension AROM (degrees) : 30 Degrees (end range tightness) Cervical Side-Bend Right AROM (degrees): 35 Degrees (end range L stretch/tight) Cervical Side-Bend Left AROM (degrees) : 40 Degrees (end range pain) Cervical Rotation Right AROM (degrees) : 63 Degrees (tightness L cervical) Cervical Rotation Left AROM (degrees) : 60 Degrees (end range pain) TREATMENT: Therapeutic Exercise: 1: post shld circles x 20 2: upper trap stretches 3 x 30 sec holds 3: cervical retractions 2 x 10 4: AROM cervical rotations (with gentle stretch held at end range) 2 x 10 5: scapular retractions 5 sec holds x 10 6: snarl /upper lip elevation x 10 7: exagerated smiling x 10 Skilled Intervention: Patient was educated in proper exercise technique and purpose for exercises. Reviewed and educated patient on additions/changes for home exercise program. Skilled judgment was used in selection of appropriate interventions. Correct performance of therapeutic exercises was facilitated with verbal and visual cuing. Patient education as noted. Manual Therapy: 1: suboccipital releases with pt in supine x 5 min 2: MFR cross hand techniques cervical paraspinals, scalenes, upper traps with pt in supine 3: Soft tissue mobs to cervical paraspinals, scalenes, upper traps. Skilled Intervention: Manual skills to improve joint mobility, ROM, and decrease pain. Utilized anatomy knowledge of the therapist, and assessment of patient's response to intervention. Billing Therapeutic Exercise Treatment Minutes: 28 Manual TherapyTreatment Minutes: 22 Skilled Treatment Time Minutes (timed and untimed codes): 50 Total Session Time (minutes): 50 Session Start Time : 1345 Session Stop Time : 1435 Elif Callahan PT documented in this encounter [facility] 08-28-2023 Note HNO ID: [id number] Author: Elif Callahan PT Service: ? Author Type: Physical Therapist Type: Progress Notes Filed: 08/28/2023 11:31 AM Note Text: Episode Visit Count: 3 Therapist That Will Accept/Oversee The Plan Of Care: Elif Callahan Start of Care Date: 08/21/23 Onset Date: 07/17/23 Patient Identified by Name and Date of : Yes REHABILITATION AND SPORTS THERAPY PHYSICAL THERAPY TREATMENT NOTE ASSESSMENT: Nancy Pickard tolerated the session with expected muscle soreness. She demonstrated improvements in decreased muscle fatigue tremors with cervical rotation. The patient will continue to benefit from ongoing skilled physical therapy to progress toward set goals. PLAN FOR NEXT VISIT: Stretches, strengthening and manual techniques for soft tissue restrictions. SUBJECTIVE: Pt reporting she did a lot this weekend and lifting, reaching, moving totes so is feeling alittle more pain today. Pt states she notices the twitching at end range when she turns her head to the side happens less frequently. Pain: Pain Pain Level: 7 Pain Location: Neck, Neck - Right, Neck - Left (more on the left side today) Description: Aching, Tightness Post Treatment Pain Post Treatment Pain Level: 7 Post Treatment Pain Description: Sore OBJECTIVE MEASURES WITH LEVEL OF FUNCTION: Spine Observations Spine Observations: R upper lip elevation limited, decreased lift at R corner of mouth with smiling and expressions TREATMENT: Therapeutic Exercise: 1: post shld circles x 20 2: upper trap stretches 3 x 30 sec holds 3: AROM cervical rotations (within painfree range) 2 x 10 4: scapular retractions 5 sec holds x 10 5: cervical retractions 2 x 10 6: * snarl /upper lip elevation x 10 7: *exagerated smiling x 10 Skilled Intervention: Patient was educated in proper exercise technique and purpose for exercises. Reviewed and educated patient on additions/changes for home exercise program as above (*). Skilled judgment was used in selection of appropriate interventions. Correct performance of therapeutic exercises was facilitated with verbal and visual cuing. Patient education as noted. Manual Therapy: 1: suboccipital releases with pt in supine x 5 min 2: MFR cross hand techniques cervical paraspinals, scalenes, upper traps iwth pt in supine 3: gentle soft tissue mobs to cervical paraspinals, scalenes, upper traps with trigger points upper traps muscle belly B. Skilled Intervention: Manual skills to improve joint mobility, ROM, and decrease pain. Utilized anatomy knowledge of the therapist, and assessment of patient's response to intervention. Billing Therapeutic Exercise Treatment Minutes: 27 Manual TherapyTreatment Minutes: 20 Skilled Treatment Time Minutes (timed and untimed codes): 47 Total Session Time (minutes): 47 Session Start Time : 1035 Session Stop Time : 1122 Elif Callahan, PT [facility] 08-28-2023 History of Presen t illness Narrative Episode Visit Count: 3 Therapist That Will Accept/Oversee The Plan Of Care: Elif Callahan Start of Care Date: 08/21/23 Onset Date: 07/17/23 Patient Identified by Name and Date of : Yes REHABILITATION AND SPORTS THERAPY PHYSICAL THERAPY TREATMENT NOTE ASSESSMENT: Nancy Pickard tolerated the session with expected muscle soreness. She demonstrated improvements in decreased muscle fatigue tremors with cervical rotation. The patient will continue to benefit from ongoing skilled physical therapy to progress toward set goals. PLAN FOR NEXT VISIT: Stretches, strengthening and manual techniques for soft tissue restrictions. SUBJECTIVE: Pt reporting she did a lot this weekend and lifting, reaching, moving totes so is feeling alittle more pain today. Pt states she notices the twitching at end range when she turns her head to the side happens less frequently. Pain: Pain Pain Level: 7 Pain Location: Neck, Neck - Right, Neck - Left (more on the left side today) Description: Aching, Tightness Post Treatment Pain Post Treatment Pain Level: 7 Post Treatment Pain Description: Sore OBJECTIVE MEASURES WITH LEVEL OF FUNCTION: Spine Observations Spine Observations: R upper lip elevation limited, decreased lift at R corner of mouth with smiling and expressions TREATMENT: Therapeutic Exercise: 1: post shld circles x 20 2: upper trap stretches 3 x 30 sec holds 3: AROM cervical rotations (within painfree range) 2 x 10 4: scapular retractions 5 sec holds x 10 5: cervical retractions 2 x 10 6: * snarl /upper lip elevation x 10 7: *exagerated smiling x 10 Skilled Intervention: Patient was educated in proper exercise technique and purpose for exercises. Reviewed and educated patient on additions/changes for home exercise program as above (*). Skilled judgment was used in selection of appropriate interventions. Correct performance of therapeutic exercises was facilitated with verbal and visual cuing. Patient education as noted. Manual Therapy: 1: suboccipital releases with pt in supine x 5 min 2: MFR cross hand techniques cervical paraspinals, scalenes, upper traps iwth pt in supine 3: gentle soft tissue mobs to cervical paraspinals, scalenes, upper traps with trigger points upper traps muscle belly B. Skilled Intervention: Manual skills to improve joint mobility, ROM, and decrease pain. Utilized anatomy knowledge of the therapist, and assessment of patient's response to intervention. Billing Therapeutic Exercise Treatment Minutes: 27 Manual TherapyTreatment Minutes: 20 Skilled Treatment Time Minutes (timed and untimed codes): 47 Total Session Time (minutes): 47 Session Start Time : 1035 Session Stop Time : 1122 Elif Callahan PT documented in this encounter [facility] 08-25-2023 Note HNO ID: [id number] Author: Elif Callahan PT Service: ? Author Type: Physical Therapist Type: Progress Notes Filed: 08/25/2023 12:54 PM Note Text: Episode Visit Count: 2 Therapist That Will Accept/Oversee The Plan Of Care: Elif Callahan Start of Care Date: 08/21/23 Onset Date: 07/17/23 Patient Identified by Name and Date of : Yes REHABILITATION AND SPORTS THERAPY PHYSICAL THERAPY TREATMENT NOTE ASSESSMENT: Nancy Pickard tolerated the session with decreased symptoms. She demonstrated improvements in cervical AROM. The patient will continue to benefit from ongoing skilled physical therapy to progress toward set goals. PLAN FOR NEXT VISIT: Continue with exercise and manual techniques. May further assess facial weakness per symptoms. SUBJECTIVE: Pt states her Mom noticed she was moving her R lower face, lips more after initial treatment. Notes pain was pretty sore for most of yesterday. She slept with ice pack on her neck last night so not too bad this morning. A little tighter, though. Pain: Pain Pain Level: 6 Pain Location: Neck, Neck - Right, Neck - Left Description: Aching, Tightness Post Treatment Pain Post Treatment Pain Level: 5 OBJECTIVE MEASURES WITH LEVEL OF FUNCTION: Posture / Alignment UE Observations: Palpable tightness B upper traps with reported tenderness Cervical Spine ROM Cervical Side-Bend Right AROM (degrees): 35 Degrees Cervical Side-Bend Left AROM (degrees) : 30 Degrees TREATMENT: Therapeutic Exercise: 1: post shld circles x 20 2: upper trap stretches 3 x 30 sec holds 3: AROM cervical rotations (within painfree range) 2 x 10 4: *scapular retractions 5 sec holds x 10 5: *cervical retractions 2 x 10 Skilled Intervention: Patient was educated in proper exercise technique and purpose for exercises. Reviewed and educated patient on additions/changes for home exercise program as above (*). Skilled judgment was used in selection of appropriate interventions. Provided written instruction for home exercise program to facilitate proper performance and compliance. Correct performance of therapeutic exercises was facilitated with verbal and visual cuing. Patient education as noted. Manual Therapy: 1: suboccipital releases with pt in supine x 5 min 2: MFR cross hand techniques cervical paraspinals, scalenes, upper traps iwth pt in supine 3: gentle soft tissue mobs to cervical paraspinals, scalenes, upper traps Skilled Intervention: Manual skills to improve joint mobility, ROM, and decrease pain. Utilized anatomy knowledge of the therapist, and assessment of patient's response to intervention. Billing Therapeutic Exercise Treatment Minutes: 25 Manual TherapyTreatment Minutes: 20 Skilled Treatment Time Minutes (timed and untimed codes): 45 Total Session Time (minutes): 45 Session Start Time : 946 Session Stop Time : 103 Elif London, PT [facility] 08-25-2023 History of Presen t illness Narrative Episode Visit Count: 2 Therapist That Will Accept/Oversee The Plan Of Care: Elif Callahan Start of Care Date: 08/21/23 Onset Date: 07/17/23 Patient Identified by Name and Date of : Yes REHABILITATION AND SPORTS THERAPY PHYSICAL THERAPY TREATMENT NOTE ASSESSMENT: Nancy Pickard tolerated the session with decreased symptoms. She demonstrated improvements in cervical AROM. The patient will continue to benefit from ongoing skilled physical therapy to progress toward set goals. PLAN FOR NEXT VISIT: Continue with exercise and manual techniques. May further assess facial weakness per symptoms. SUBJECTIVE: Pt states her Mom noticed she was moving her R lower face, lips more after initial treatment. Notes pain was pretty sore for most of yesterday. She slept with ice pack on her neck last night so not too bad this morning. A little tighter, though. Pain: Pain Pain Level: 6 Pain Location: Neck, Neck - Right, Neck - Left Description: Aching, Tightness Post Treatment Pain Post Treatment Pain Level: 5 OBJECTIVE MEASURES WITH LEVEL OF FUNCTION: Posture / Alignment UE Observations: Palpable tightness B upper traps with reported tenderness Cervical Spine ROM Cervical Side-Bend Right AROM (degrees): 35 Degrees Cervical Side-Bend Left AROM (degrees) : 30 Degrees TREATMENT: Therapeutic Exercise: 1: post shld circles x 20 2: upper trap stretches 3 x 30 sec holds 3: AROM cervical rotations (within painfree range) 2 x 10 4: *scapular retractions 5 sec holds x 10 5: *cervical retractions 2 x 10 Skilled Intervention: Patient was educated in proper exercise technique and purpose for exercises. Reviewed and educated patient on additions/changes for home exercise program as above (*). Skilled judgment was used in selection of appropriate interventions. Provided written instruction for home exercise program to facilitate proper performance and compliance. Correct performance of therapeutic exercises was facilitated with verbal and visual cuing. Patient education as noted. Manual Therapy: 1: suboccipital releases with pt in supine x 5 min 2: MFR cross hand techniques cervical paraspinals, scalenes, upper traps iwth pt in supine 3: gentle soft tissue mobs to cervical paraspinals, scalenes, upper traps Skilled Intervention: Manual skills to improve joint mobility, ROM, and decrease pain. Utilized anatomy knowledge of the therapist, and assessment of patient's response to intervention. Billing Therapeutic Exercise Treatment Minutes: 25 Manual TherapyTreatment Minutes: 20 Skilled Treatment Time Minutes (timed and untimed codes): 45 Total Session Time (minutes): 45 Session Start Time : 946 Session Stop Time : 1031 Elif Callahan PT documented in this encounter [facility] 08-21-2023 Note HNO ID: [id number] Author: Elif Callahan PT Service: ? Author Type: Physical Therapist Type: Progress Notes Filed: 08/21/2023 5:13 PM Note Text: Episode Visit Count: 1 Therapist That Will Accept/Oversee The Plan Of Care: Elif Callahan Start of Care Date: 08/21/23 Onset Date: 07/17/23 Patient Identified by Name and Date of : Yes REHABILITATION AND SPORTS THERAPY PHYSICAL THERAPY EVALUATION PLAN OF CARE: Assessment: Nancy Pickard presents with diagnosis of cervicalgia that interferes with driving, lifting (checking blind spot, lifting 2 year old son) . She presents with impairments in flexibility, overall function, range of motion, strength, symptom management, and tissue tenderness. Patient did not complete the PROMIS? (Patient Reported Outcome Measures Information System). Prognosis for therapy is Excellent due to: current objective clinical presentation, good overall health status, good support system/ coping skills . She will benefit from skilled therapy services to meet the goals established for this plan of care as noted below. Goals for Episode of Care: created on 08/21/23 through 09/21/23 Independent in a Home Exercise Program. Patient will decrease pain rating by 2 points to meet minimal clinical important difference for numeric pain rating scale. Drive with no aggravation of pain/symptoms. Sleep throughout the night without pain/symptoms. Knowledgeable RE: prophylaxis. Patient will increase strength of cervical and scapular musculature to 4+ to 5/5 to allow for improve ability to maintain proper posture, improve mechanics, and decrease pain. Patient will be able to tolerate sleeping without interruption without increased symptoms. Patient Goals: To get back to normal ROM without pain or without the vision spots. Planned Interventions, Frequency, and Duration: Current Frequency: 2x/week Duration: 4 weeks Total Number of Visits Planned: 8 Planned Treatment Interventions: Therapeutic exercise (09922), Neuromuscular re-education (22506), Manual therapy (22493), Self-longterm management (31779), Patient/Family/Caregiver Education PLAN FOR NEXT VISIT: Assess response to HEP and insure correct performance. May progress exercises, add manual soft tissue techniques per restrictions. Patient demonstrates good understanding of plan of care and treatment. The above goals and plan of care were discussed and agreed upon by patient/family. SUBJECTIVE: On Jul 17, pt donated blood and passed out. She fell forward and sustained a concussion, facial lacerations, and broken nose. Neck pain for couple days then became really tight and difficulty moving neck. Had massage done which helped with some ROM. If tries to push past point of ROM, muscles will jump /twitch. Looking down with rotation is worst, looking down or side to side is limited too. Worse when first wakes up (really tight) and sat through a class (stationary sitting) and got tight, painful, nauseous. Better if moving around. Patient Goals: To get back to normal ROM without pain or without the vision spots. 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 Memory Loss: (Doesn't remember 5 min prior to the incident. Response was correct, but slower than normal.) Loss of Consciousness: Yes History of Concussion: No Vestibular History of Migraine: Yes GRADED SYMPTOM CHECKLIST Headache: (one migraine since this incident, but felt equal to previous migraines) Nausea or vomiting: (intermittent) Dizziness: (Initially when turned head too far. Currently only when trying to rotate head too far to left.) Sensitivity to light: (No longer having light sensitivity, see black spots when turns head too far) Pain: Pain Pain Level: 6 (up to 6 with active neck motions, resting 2/10 aching ) Pain Location: Neck, Neck - Right, Neck - Left Description: Aching, Tightness (achey and tight on sides and painful posterior neck) Frequency: Continuous Post Treatment Pain Post Treatment Pain Level: No Change PROMIS Scales T-scores: mean of general population = 50. 5 points is clinically meaningfully difference Percentiles provide an indication of how the patient's score ranks in relation to the general population. Higher percentile rankings indicate better function/quality of life. 50t (more content not included)... [facility] 08-09-2023 Note HNO ID: [id number] Author: Parish Avalos APRN.SPECIAL PROCEDURE TECHNOLOGIST Service: ? Author Type: Nurse Practitioner Type: Progress Notes Filed: 08/09/2023 2:30 PM Note Text: This note was created using NoteWriter. Subjective Nancy Pickard is a 28 year old female. Patient here for ER follow-up on 07/17. Was evaluated there after a syncopal episode following blood donation where she fell and hit her head. She has was diagnosed with a concussion and nasal bone fracture and also had a laceration to the lateral right lower part of her nose. Has donated blood previously with no problems, but not since before [facility]. Saw ENT on 07/21 and everything was fine, still healing. Is unable to wear her glasses still though due to the discomfort on the bridge of her nose where her glasses rest. Is still having a lot of neck and shoulder pain following this incident, decreased ROM, worse with certain movements. Was rotating ice/heat, tylenol/ibuprofen. Also has decreased sensation in her face, specifically to the right upper lip/right nostril and weakness to facial musculature, cannot smile fully. Sometimes has some discomfort in this area, feels like when something 'falls asleep'. This doesn't seem to be improving since her ER visit. The history is provided by the patient. Review of Systems HENT: Negative for trouble swallowing. Respiratory: Negative for shortness of breath. Cardiovascular: Negative for chest pain. Gastrointestinal: Negative for abdominal pain. Neurological: Positive for weakness, numbness and headaches. Negative for dizziness and speech difficulty. PAST MEDICAL HISTORY Diagnosis Date Asthma Gastritis Hiatal hernia Lyme disease Migraines Primary dysmenorrhea Seasonal allergies PAST SURGICAL HISTORY Procedure Laterality Date EGD 01/31/2019 Hiatal hernia TONSILLECTOMY HX Tonsilectomy ALLERGIES Latex, Biaxin [Clarithromycin], and Seasonal Allergies MEDICATIONS albuterol HFA (PROAIR HFA) 90 mcg/actuation inhaler Inhale 2 Puffs as instructed every 6 hours as needed. ondansetron orally disintegrating (ZOFRAN ODT) 8 mg disintegrating tablet Take 1 tablet by mouth once daily. DISSOLVE ON TONGUE fluticasone (FLONASE ALLERGY RELIEF) 50 mcg/actuation nasal spray Use 1 [place] in each nostril twice daily. CETIRIZINE HCL (ZYRTEC ORAL) Take by mouth. rimegepant (NURTEC ODT) 75 mg disintegrating tablet Take 1 tablet by mouth once daily as needed (migraine). (Patient not taking: Reported on 08/09/2023) FAMILY HISTORY Problem Relation Age of Onset Diabetes Mother Kidney Disease Mother Depression Mother Hypertension Mother other (diverticulitis) Mother other (IBS) Mother other (Bleeding problem) Mother Cancer Maternal Grandmother Diabetes Maternal Grandmother Heart disease Maternal Grandmother Hypertension Maternal Grandmother Diabetes Paternal Grandmother Diabetes Paternal Grandfather Social History Tobacco Use Smoking status: Never Smokeless tobacco: Never Substance Use Topics Alcohol use: No Drug use: Never ' Objective BP 127/80 Pulse 87 Wt 52.2 kg (115 lb) LMP 08/05/2023 (Exact Date) BMI 18.01 kg/m? Physical Exam Vitals and nursing note reviewed. Constitutional: Appearance: She is well-developed. HENT: Head: Comments: Decreased sensation in this area of face Pulmonary: Effort: Pulmonary effort is normal. Musculoskeletal: Cervical back: Tenderness present. No bony tenderness. Pain with movement present. Decreased range of motion. Thoracic back: Tenderness (upper trapezius) present. No bony tenderness. Skin: General: Skin is warm and dry. Neurological: Mental Status: She is alert and oriented to person, place, and time. Cranial Nerves: Cranial nerve deficit (CNVII decreased right side smile) and facial asymmetry present. Sensory: Sensory deficit present. Assessment and Plan 1. Weakness of face muscles Likely nerve damage from injury and laceration repair, consult with neurology for further evaluation. - CONSULT TO NEUROLOGY; Future 2. Decreased sensation - CONSULT TO NEUROLOGY; Future 3. Cervicalgia Recommend continued supportive care, start physical therapy, muscle relaxer PRN (caution may cause drowsiness). - CONSULT TO PHYSICAL THERAPY; Future - cyclobenzaprine (FLEXERIL) 5 mg tablet; Take 1 tablet by mouth three times daily as needed. Dispense: 20 tablet; Refill: 0 4. Neck stiffness - cyclobenzaprine (FLEXERIL) 5 mg tablet; Take 1 tablet by mouth three times daily as needed. Dispense: 20 tablet; Refill: 0 Parish Avalos APRN.INDRA [facility] 08-09-2023 Instructions Parish Avalos APRN.INDRA - 08/09/2023 1:43 PM EDT Images from the original note were not included. 08/09/2023 To Whom It May Concern, Nancy Pickard has been evaluated at the [facility] for concussion. A concussion is typically a short-lived functional brain injury and will require both cognitive (mental) as well as physical rest in order to recover as quickly as possible. Please note that each concussion is different and symptoms and length of time to recovery are unique to each individual. The ideal treatment plan for concussion starts immediately and consists of identifying and limiting exposure to triggers that worsen their symptoms. These triggers can include activities such as working on or with technology, reading, writing or note taking, concentration and recall, environmental noise and light, occupied lunchrooms and meeting rooms, or even just walking from place to place. Patients will typically notice their symptoms worsening throughout the day as their brains become more fatigued. Pushing through their symptoms may prolong their recovery process. To best treat this patient, we ask that you implement the following temporary daily adjustments to the patient s work/school load to aid in the patient s recovery. Revisions may be made upon physician re-evaluation or follow up, and are dictated by their rate of recovery. Missed Time The concussed brain will fatigue more easily and is typically the freshest earlier in the morning after a good night s rest. We recommend that the concussed patient not attend work/school if they awake with symptoms, as this has been shown to delay recovery. As the day and the cognitive demands increase, the concussed individual will become more fatigued and have more difficulty completing tasks. Environmental and social stressors can contribute to their symptoms as well. Some patients may need to stay home at first to see how effective they work with and without symptoms. They may find that working at home in small increments with frequent rest breaks may make it more manageable than being at work/school. Once the patient can return to work/school it is recommended that the patient be permitted short breaks during activities/tasks in order to rest the brain and recover if symptoms come on during these activities. If the symptoms resolve with a short break, the patient may return to the activity, if not they should consider going home to rest for longer when possible. Other instances a patient may note that the biggest symptom stressor is the environment from light and noise. Allowing the patient to bring sunglasses, brimmed hats and ear plugs to work/school as well as avoiding crowded environments can assist in decreasing these daily stressors. Workload Reduction Memory, attention span and processing speed are impaired during the recovery process. The patient may need more time, flexible due dates or decreased workload in order to complete assignments/tasks. More time can help as the patient may need to take frequent breaks in order to get through the day and their tasks. Notes and materials for daily meetings/classes should be forwarded to the patient in advance of the next event to allow them to print these materials for review to decrease cognitive overstimulation during the event/meeting/class. Based on the patient s daily status of recovery it is the recommendation of the [facility] that testing be postponed until he/she is able to complete a full day of work/school or is provided with unlimited amounts of time to complete the test with frequent breaks incorporated and no more than one scheduled test every other day. Virtual/Electronic Events When possible, record online presentations and allow the patient to listen over viewing as necessary to minimize stress from screens. Allow the patient to complete virtual assignments/tasks at a later time in order to facilitate appropriate recovery. Notes for virtual events and event materials should be forwarded to the patient in advance of the next event to allow them to print these materials for review. Some concussed patients may find that listening is easier than reading or vice-versa. Multitasking, such as combining listening, reading, taking notes, and weeding out distractions in an environment can be very difficult, if not impossible, during the recovery phase. When possible consider virtual oral practical versus completing typed, written tests assignments. Sports/Physical Activity Gymnasium environments are often loud, very bright and full of other individuals moving about. This is not an ideal environment for a recovering patient and we recommend that the patient not participate in gym class or competitive sport activity until they have completed a return to activity progression under the supervision of a medical professional. [place] has laws requiring youth athletes to complete a progressive return to sports activity progression prior to returning to competition. Please refer to your [place] department of health rules and laws prior to returning anyone under the age of 18 to sports. Patients with concussion can have limited physical activity as their symptoms tolerate. These include low level cardiovascular activities like riding a stationary bike or directed walking on a flat level surface. Activities should be completed in a protected area away from moving objects. If the patient develops symptoms during the activity they should decrease their effort and intensity. If this improves symptoms they may continue at that level but if not improving they should discontinue and rest, reattempting the next day. We appreciate your assistance in the medical treatment plan to allow the patient to recover expeditiously and returning them back to their daily activities as quickly and safely as possible. Please do not hesitate to contact our office should you have any questions regarding the recovery plan. You may also visit [email or web address] for more information. Sincerely, Parish Avalos APRN.SPECIAL PROCEDURE TECHNOLOGIST Frequently Asked Questions about Concussion What is a concussion? A concussion, or mild traumatic brain injury, is caused by a bump, jolt, or blow to the head that causes the brain to shift or twist rapidly inside the skull. A jolt to the body can also cause concussion if the impact causes the head to jerk forcefully backwards, forwards, rotate, or move to the side as in whiplash. A concussion is called mild because it is not usually life-threatening, and the symptoms are usually short-lived. However, the effects from a concussion can be serious and can last for days, weeks, or even longer. What are the common causes of concussion? The most common causes of concussions are falls, motor vehicle accidents, bicycling, and sport injuries. Any sport in which there is contact among the players, or which involves moving objects like a puck or a ball, can place the athlete at a higher risk for a concussion. Suffering a concussion increases the risk of suffering another during the first year following the injury. People with a history of previous concussion(s) are also at increased risk for prolonged symptoms after concussion. How is a concussion diagnosed? A medical professional should provide a thorough examination. This includes a history of the injury, a review of concussion symptoms, a comprehensive physical and neurological exam, balance testing and cognitive function testing. Most concussions do not require brain imaging with a CT or MRI. All city emergency [facility] states have laws to protect youth/student athletes from returning to the sport before it is safe. A note from a licensed medical professional is required to certify the athlete s is recovered prior to athletic return. What are the common symptoms of concussion? Concussion symptoms usually appear immediately or just a few minutes after the head injury however, in some instances, symptoms may take several hours or even days to appear. The most common symptom of a concussion is a headache. Other common symptoms include dizziness, nausea, sensitivity to light and noise, sleep difficulties, fatigue, trouble with concentration, changes in behavior, irritability, sadness, nervousness and anxiety. For additional information or to make an appointment, go to [email or web address] or call [phone] ([phone]). What does concussion treatment/management involve? Most patients symptoms can be managed by observation and encouraging rest for the first few days. An appointment with a health care provider will individualize a gradual return to work/school and physical activity after initial rest. Medications for pain relief, unless prescribed, are not recommended as they may hide symptoms are worsening each day. If symptoms are only worsening, seek medical evaluation immediately. Treatment of concussion is based on a plan called relative rest . The purpose is for the brain to be active, but not overactive and it should not become underactive either. There is a need to find balance in activities because the overactive brain can develop more symptoms and the underactive brain can become more sluggish. Both scenarios can make concussion recovery take longer. Four Principles of Relative Rest are as follows: Recognize when your symptoms worsen with activity. Temporarily remove yourself from those activities - take a break. Rest until the symptoms improve or go away - close your eyes and put head down. Return to those activities once you feel better. Can I exercise with a concussion? Yes, light cardiovascular exercise 2 days after concussion injury has been shown to improve a patient s recovery time and symptoms however, it is recommended that a patient refrain from the same level of physical activity as prior to the injury. Gym classes should not be attended until cleared by your medical team. Walking or light riding on a stationary bike for exercise is okay in order to keep the body moving increasing blood flow to the brain but you ll want to avoid anything that significantly increases heart rate. Exercise should not provoke symptoms. If symptoms worsen with light cardiovascular exercise, slow down the tempo of the exercise and see if symptoms improve. If it does, continue at that intensity. If symptoms continue despite slowing down, discontinue activity for the day. Patients who are student athletes should focus on becoming a student first, adding athletic activity as their recovery allows under the guidance of a licensed medical professional whenever possible. For additional information or to make an appointment, go to [email or web address] or call [phone] ([phone]). I can t seem to focus or concentrate now. Should I be going to school? It's helpful to identify and limit things that cause symptoms to return or increase. Most of the time, you can control the environment at home, where the lights can be turned down, the noise level controlled, and studies paced by taking frequent breaks and resting as needed. Patients can go back to work/school as soon as they feel they are ready. For many, this means when patients can handle 25-45 minutes of reading/studying at home without increasing symptoms but requiring breaks. When going back to work/school, start with the easiest subjects/activities and increase as tolerated. That doesn t necessarily mean that a patient go to work/school for a set amount of time. The patient should start off with some easier tasks/classes each day and moving towards the harder ones when they feel able. If symptoms start during work/class, the patient should take a small break by closing their eyes or putting their head down until symptoms start to go away. If symptoms don t improve or start to get worse, they can go to the nurse s office/quiet room to lie down, or even go home to rest. Note taking can be challenging with a concussion due to light sensitivity from screens, painful eye and neck movements or even multi-tasking. To control symptoms, pre-printed notes in advance of a meeting or lesson are helpful. Focus on one task at a time. Utilize the sheet to add content from the discussion as needed. Just like getting into shape, mental stamina will improve as the patient listens to and manages symptoms. A patient shouldn t be afraid to rest and recover when they get home, they may be very tired and fatigued. Just like a phone they need to recharge and can nap but should do so briefly to not affect sleep. The power of diet and hydration: Though you may not be hungry or thirsty, make sure to get a balanced diet and hydration. Low blood sugar and dehydration mimic concussion symptoms. Making sure these are not a factor aids in faster recovery. What should I do if I have trouble falling asleep or sleeping through the night? Avoid screen time at least 1 hour prior to going to bed. This include phones, TVs, computers and other electronic devices. Blue light wavelengths affects the body s natural ability to produce melatonin, a hormone that helps regulate sleep. An over the counter supplement of melatonin is also available and can be used to assist in falling and staying asleep. Begin with 1-3mg if needed. If sleep does not improve, see your medical provider as soon as possible. For additional information or to make an appointment, go to [email or web address] or call [phone] ([phone]). 1 How to Manage Concussion Symptoms The following information is to help guide you through the different symptoms that you may experience during your recovery. Symptom management is designed to give you tips to assist you in decreasing symptoms, as well as speeding up your recovery. LIMIT TRIGGERS CAUSING SYMPTOMS: TIPS FOR MANAGEMENT Any activity that produces or increases your symptoms is considered a trigger. It is important for you to know what aggravates your individual symptoms. Limiting triggers will help decrease symptoms each day This can allow for faster recovery and a return to activities sooner RELATIVE REST: We want the brain to remain active, but only as tolerated. This will require you to limit physical and mental activities that worsen your symptoms. When symptoms develop or worsen, stop that activity immediately, rest until your symptoms improve or resolve, and then resume the activity as tolerated. Try shorter activity periods (start at 5 minutes & increase as tolerated) Limit electronic device use (cellphones, computers, tablet pcs, etc.) as these can aggravate symptoms Adapt your schedule to accommodate your symptoms each day APPROPRIATE SLEEP: Our brains recover during sleep. Sleep makes you feel more rested and focused. Your sleep pattern may be disrupted after a concussion, causing daytime tiredness. If sleep is difficult, inform your medical team. Go to bed and get up at the same time each day Take a short nap (30-60 minutes) if tired during the day Naps should not affect night time sleep Eliminate bedroom distractions: i.e. TV, cellphones, computers, tablet pcs, etc. HEADACHE: May vary in location and intensity Typically will worsen with mental/physical stress as the day progresses Can worsen with the position of your head and neck, especially with reading, working on a computer, texting or studying If your headache becomes more intense or worsens, consult your medical team Take medication sparingly as directed. Do not mask symptoms and push through tasks. DIZZINESS: Common after concussion and is described as: Lightheadedness Room is spinning Pressure or feeling of a full head Fogginess or can t think clearly Woozy Off balance It is important that you communicate any of these symptoms of dizziness to your medical team, even if the symptoms are temporary or come and go For more information or to make an appointment, go to [email or web address] or call [phone] ([phone]). 1 NECK PAIN: TIPS FOR MANAGEMENT Discomfort along your hairline or on the top of your shoulders is common with concussion Numbness and pain into your arms and hands is not common and should be reported can worsen with the position of your head and neck, especially with reading, working on a computer, texting or studying Physical therapy may be needed for resolution. It is important to let your medical team know if you develop neck pain after your concussion Use ice or cold pack at the base of the skull as needed for neck pain for about 15-20 minutes Try to use correct back and neck posture for relief LIGHT AND NOISE SENSITIVITY: Both are common after an injury Different kinds of light and noise can affect each person differently Limit exposure to these triggers by controlling the environment around you whenever possible Gradually reintroduce these stimuli, increasing exposure over time Turning indoor lights down and closing blinds may be necessary Sunglasses and hats can be used outside or with bright lights Limit electronic devices (cellphones, computers, TV, etc.) as these are known to aggravate symptoms Keep volume low on TVs or music Use foam earplugs to control noise in outdoor/public environments Report these to your medical team For more information or to make an appointment, go to [email or web address] or call [phone] ([phone]). documented in this encounter [facility] 08-09-2023 History of Presen t illness Narrative Images from the original note were not included. This note was created using Forterriter. Subjective Nancy Pickard is a 28 year old female. Patient here for ER follow-up on 07/17. Was evaluated there after a syncopal episode following blood donation where she fell and hit her head. She has was diagnosed with a concussion and nasal bone fracture and also had a laceration to the lateral right lower part of her nose. Has donated blood previously with no problems, but not since before yvettesc. Saw ENT on 07/21 and everything was fine, still healing. Is unable to wear her glasses still though due to the discomfort on the bridge of her nose where her glasses rest. Is still having a lot of neck and shoulder pain following this incident, decreased ROM, worse with certain movements. Was rotating ice/heat, tylenol/ibuprofen. Also has decreased sensation in her face, specifically to the right upper lip/right nostril and weakness to facial musculature, cannot smile fully. Sometimes has some discomfort in this area, feels like when something 'falls asleep'. This doesn't seem to be improving since her ER visit. The history is provided by the patient. Review of Systems HENT: Negative for trouble swallowing. Respiratory: Negative for shortness of breath. Cardiovascular: Negative for chest pain. Gastrointestinal: Negative for abdominal pain. Neurological: Positive for weakness, numbness and headaches. Negative for dizziness and speech difficulty. PAST MEDICAL HISTORY Diagnosis Date Asthma Gastritis Hiatal hernia Lyme disease Migraines Primary dysmenorrhea Seasonal allergies PAST SURGICAL HISTORY Procedure Laterality Date EGD 01/31/2019 Hiatal hernia TONSILLECTOMY HX Tonsilectomy ALLERGIES Latex, Biaxin [Clarithromycin], and Seasonal Allergies MEDICATIONS albuterol HFA (PROAIR HFA) 90 mcg/actuation inhaler Inhale 2 Puffs as instructed every 6 hours as needed. ondansetron orally disintegrating (ZOFRAN ODT) 8 mg disintegrating tablet Take 1 tablet by mouth once daily. DISSOLVE ON TONGUE fluticasone (FLONASE ALLERGY RELIEF) 50 mcg/actuation nasal spray Use 1 [place] in each nostril twice daily. CETIRIZINE HCL (ZYRTEC ORAL) Take by mouth. rimegepant (NURTEC ODT) 75 mg disintegrating tablet Take 1 tablet by mouth once daily as needed (migraine). (Patient not taking: Reported on 08/09/2023) FAMILY HISTORY Problem Relation Age of Onset Diabetes Mother Kidney Disease Mother Depression Mother Hypertension Mother other (diverticulitis) Mother other (IBS) Mother other (Bleeding problem) Mother Cancer Maternal Grandmother Diabetes Maternal Grandmother Heart disease Maternal Grandmother Hypertension Maternal Grandmother Diabetes Paternal Grandmother Diabetes Paternal Grandfather Social History Tobacco Use Smoking status: Never Smokeless tobacco: Never Substance Use Topics Alcohol use: No Drug use: Never ' Objective BP 127/80 Pulse 87 Wt 52.2 kg (115 lb) LMP 08/05/2023 (Exact Date) BMI 18.01 kg/m Physical Exam Vitals and nursing note reviewed. Constitutional: Appearance: She is well-developed. HENT: Head: Comments: Decreased sensation in this area of face Pulmonary: Effort: Pulmonary effort is normal. Musculoskeletal: Cervical back: Tenderness present. No bony tenderness. Pain with movement present. Decreased range of motion. Thoracic back: Tenderness (upper trapezius) present. No bony tenderness. Skin: General: Skin is warm and dry. Neurological: Mental Status: She is alert and oriented to person, place, and time. Cranial Nerves: Cranial nerve deficit (CNVII decreased right side smile) and facial asymmetry present. Sensory: Sensory deficit present. Assessment and Plan 1. Weakness of face muscles Likely nerve damage from injury and laceration repair, consult with neurology for further evaluation. - CONSULT TO NEUROLOGY; Future 2. Decreased sensation - CONSULT TO NEUROLOGY; Future 3. Cervicalgia Recommend continued supportive care, start physical therapy, muscle relaxer PRN (caution may cause drowsiness). - CONSULT TO PHYSICAL THERAPY; Future - cyclobenzaprine (FLEXERIL) 5 mg tablet; Take 1 tablet by mouth three times daily as needed. Dispense: 20 tablet; Refill: 0 4. Neck stiffness - cyclobenzaprine (FLEXERIL) 5 mg tablet; Take 1 tablet by mouth three times daily as needed. Dispense: 20 tablet; Refill: 0 Parish Avalos APRN.SPECIAL PROCEDURE TECHNOLOGIST documented in this encounter [facility] 07-12-2023 Note HNO ID: [id number] Author: Jonah Saunders PT Service: ? Author Type: Physical Therapist Type: Progress Notes Filed: 07/12/2023 9:19 AM Note Text: [facility] DME ISSUE NOTE Patient identified by name and date: Yes Subjective: Nancy Pickard is a 28 year old female seen today for fitting and corn picker of refurbished pair of custom foot orthotics. Equipment Owned: custom foot orthotics (now refurbished) DME Delivery: Pt was educated on wear schedule and care of custom foot orthotics. Pt was educated on the option of having orthotics refurbished as needed in the future as long as shell is performing it's intended function well. Pt was educated on the approximate time frame when this might be necessary. The fit of orthotics was assessed with pt standing, with and without shoes. The comfort of orthotics was assessed with pt standing and walking with orthotics in shoes. Pt denied any rubbing or pinching and felt that fit of custom orthotics was correct. Contact information for this therapist was provided to patient. Custom biomechanical foot orthotics with serial number: #[id number] were issued to patient and proof of receipt form signed by pt and therapist. All specifications for custom foot orthotics can be found in orthotic evaluation visit note. Planned Interventions: Follow up as needed for brace fitting/issues. Billing:[facility]: Equipment: L4210 x1 repair/refurbishment of custom foot orthotics No charge for time Total time: 9 minutes Jonah Saunders PT [facility] 07-12-2023 History of Presen t illness Narrative [facility] DME ISSUE NOTE Patient identified by name and date: Yes Subjective: Nancy Pickard is a 28 year old female seen today for fitting and corn picker of refurbished pair of custom foot orthotics. Equipment Owned: custom foot orthotics (now refurbished) DME Delivery: Pt was educated on wear schedule and care of custom foot orthotics. Pt was educated on the option of having orthotics refurbished as needed in the future as long as shell is performing it's intended function well. Pt was educated on the approximate time frame when this might be necessary. The fit of orthotics was assessed with pt standing, with and without shoes. The comfort of orthotics was assessed with pt standing and walking with orthotics in shoes. Pt denied any rubbing or pinching and felt that fit of custom orthotics was correct. Contact information for this therapist was provided to patient. Custom biomechanical foot orthotics with serial number: #[id number] were issued to patient and proof of receipt form signed by pt and therapist. All specifications for custom foot orthotics can be found in orthotic evaluation visit note. Planned Interventions: Follow up as needed for brace fitting/issues. Billing:[facility]: Equipment: L4210 x1 repair/refurbishment of custom foot orthotics No charge for time Total time: 9 minutes Jonah Saundres PT documented in this encounter [facility] 06-20-2023 Note HNO ID: [id number] Author: Jonah Saunders PT Service: ? Author Type: Physical Therapist Type: Progress Notes Filed: 06/20/2023 1:15 PM Note Text: Pt requested today's visit so that she could have her orthotics inspected. She reports that for several years they worked very well and provided adequate relief of her symptoms. Recently, she reports that she has been having pain that she was not having for several years after receiving this pair of custom foot orthotics. She wonders if her orthotics need refurbished. She received this pair in 2018. Her orthotics were inspected and her options were explained. She elected to have her current pair of orthotics sent back to the lab for refurbishment. She asked about a substitute for her custom orthotics while she is waiting for them to return. After a discussion with Dr. Adair's nursing staff, patient was advised to go to a boot shop where PowerStep inserts are available. She was shown an example of what she should look for. Pt understood and agreed with plan. Current pair of custom orthotics will be sent back for refurbishment and she will be called when they arrive. In the meantime, she will obtain a pair of PowerSteps. Jonah Saunders PT Billing: Total Treatment Time Minutes (timed/untimed) 15 minutes Orthotic/Prosthetic Adjustment and Training (Subsequent) (01965): 1:1 time: 15 minutes (1 unit: 8-22 mins) [facility] 06-20-2023 History of Presen t illness Narrative Pt requested today's visit so that she could have her orthotics inspected. She reports that for several years they worked very well and provided adequate relief of her symptoms. Recently, she reports that she has been having pain that she was not having for several years after receiving this pair of custom foot orthotics. She wonders if her orthotics need refurbished. She received this pair in 2018. Her orthotics were inspected and her options were explained. She elected to have her current pair of orthotics sent back to the lab for refurbishment. She asked about a substitute for her custom orthotics while she is waiting for them to return. After a discussion with Dr. Adair's nursing staff, patient was advised to go to a boot shop where PowerStep inserts are available. She was shown an example of what she should look for. Pt understood and agreed with plan. Current pair of custom orthotics will be sent back for refurbishment and she will be called when they arrive. In the meantime, she will obtain a pair of PowerSteps. Jonah Saunders PT Billing: Total Treatment Time Minutes (timed/untimed) 15 minutes Orthotic/Prosthetic Adjustment and Training (Subsequent) (45190): 1:1 time: 15 minutes (1 unit: 8-22 mins) documented in this encounter [facility] 04-07-2023 Note HNO ID: [id number] Author: Shahnaz Mosqueda APRN.SPECIAL PROCEDURE TECHNOLOGIST Service: ? Author Type: Nurse Practitioner Type: Progress Notes Filed: 04/07/2023 1:47 PM Note Text: VIRTUAL VISIT PROGRESS NOTE This is a virtual visit using Photobucket video visit. It required patient-provider interaction for the medical decision making as documented below. I have communicated my name and active licensure. The patient's identity and physical location were verified at the time of this visit. Either the patient or their legal patient registration representative has been informed of the risks and benefits of -- and alternatives to -- treatment through a remote evaluation and consents to proceed with the evaluation remotely. Nancy Pickard is a 28 year old female seen for med refill. Has h/o asthma, more activity and allergy induced. Had this since teenager. Needs when pollen is really bad, leaving to head out of state to [place] so wanted refill to take with her. No symptoms currently. Uses albuterol maybe couple times per year. Takes zyrtec for allergies, benadryl prn with effect. HISTORY REVIEWED (electronic chart updated): PAST MEDICAL HISTORY Diagnosis Date Asthma Gastritis Hiatal hernia Lyme disease Migraines Primary dysmenorrhea Seasonal allergies PAST SURGICAL HISTORY Procedure Laterality Date EGD 01/31/2019 Hiatal hernia TONSILLECTOMY HX Tonsilectomy FAMILY HISTORY Problem Relation Age of Onset Diabetes Mother Kidney Disease Mother Depression Mother Hypertension Mother other (diverticulitis) Mother other (IBS) Mother other (Bleeding problem) Mother Cancer Maternal Grandmother Diabetes Maternal Grandmother Heart disease Maternal Grandmother Hypertension Maternal Grandmother Diabetes Paternal Grandmother Diabetes Paternal Grandfather Social History Tobacco Use Smoking status: Never Smokeless tobacco: Never Substance Use Topics Alcohol use: No Drug use: Never Current Outpatient Medications Medication Sig ondansetron orally disintegrating (ZOFRAN ODT) 8 mg disintegrating tablet Take 1 tablet by mouth once daily. DISSOLVE ON TONGUE rimegepant (NURTEC ODT) 75 mg disintegrating tablet Take 1 tablet by mouth once daily as needed (migraine). albuterol HFA (PROAIR HFA) 90 mcg/actuation inhaler Inhale 2 Puffs as instructed every 6 hours as needed. fluticasone (FLONASE ALLERGY RELIEF) 50 mcg/actuation nasal spray Use 1 [place] in each nostril twice daily. CETIRIZINE HCL (ZYRTEC ORAL) Take by mouth. HOMEOPATHIC DRUGS (ARNICA ESSENCE ORAL) Take by mouth. No current facility-administered medications for this visit. ALLERGIES Allergen Reactions Latex Hives Biaxin [Clarithromy* Hives Seasonal Allergies Hives REVIEW OF SYSTEMS: As noted in HPI PHYSICAL EXAMINATION: VIDEO EXAM: (if completed, performed via video enabled technology) GENERAL: alert and appropriate, in no distress, well-hydrated, well nourished, and happy, smiling, interactive OROPHARYNX: moist mucus membranes RESPIRATORY: breathing non-labored CHEST: equal chest rise with normal respiratory effort ASSESSMENT: (J45.20) Mild intermittent asthma without complication (primary encounter diagnosis) (Z91.09) Environmental allergies PLAN: Refill given Continue otc meds Consider flonase Patient to f/u with persistent, new or worsening symptoms There are no Patient Instructions on file for this visit. Shahnaz Mosqueda APRN.SPECIAL PROCEDURE TECHNOLOGIST [facility] 04-28-2022 Miscellaneous Notes Received imaging from [facility]. Placed in provider's inbox for review. Route to MA scanning. documented in this encounter [facility] 08-20-2021 History of Presen t illness Narrative Left achilles f/u Patient is a pleasant 26-year-old female who comes in today following up for a challenging Worker's Compensation Achilles tendon injury. Today she states that she is generally doing well for activities of normal daily living. She still has some mild discomfort at the end of a 10-hour shift or at approximately mile 5 for hiking otherwise throughout the day does not think about this. She does have mild complaints of arch pain but states that she is been wearing custom orthotics does not believe these are linked. Physical Vascular: DP PT pulses are palpable 2/4. CFT is fair no edema. Derm: No open wounds no ulcers no rashes no deep nodules. Neuro: Light touch is normal Babinski's is normal. Musculoskeletal: Muscle strength is 5/5 with fair tone, can easily wiggle toes without any clicking or catching. Pain is substantially improved with forced plantar flexion and direct palpation to the Achilles insertion pushoff strength is excellent. No pain to palpation the Achilles insertion. Mild plantar fascial origin pain. Assessment and plan: Patient is a pleasant female with mild insertional Achilles tendon tearing nearly fully resolved after Worker's Compensation injury. -Insertional Achilles tendon injury at this point is essentially fully resolved, might see marginal improvement in the next 3 to 6 months. However given her substantial improvement since her injury, no surgical invention is warranted and she is good to return to work without any restrictions. -I did recommend that she get into a new set of custom orthotics as her last pair are 3 years old. Follow-up as needed for her Achilles or any new issues. documented in this encounter [facility] 05-19-2021 History of Presen t illness Narrative Patient is a pleasant 26-year-old female who comes in today following up for a challenging Worker's Compensation Achilles tendon injury. She is approaching full improvement still does have some activities that are bothersome primarily ascending stairs walking up a hill and walking laterally across a hill. She states that she is having less day in and day out pain and is very optimistic. Physical Vascular: DP PT pulses are palpable 2/4. CFT is fair no edema. Derm: No open wounds no ulcers no rashes no deep nodules. Neuro: Light touch is normal Babinski's is normal. Musculoskeletal: Muscle strength is 5/5 with fair tone, can easily wiggle toes without any clicking or catching. Still with forced plantar flexion and direct palpation to the insertional Achilles does have minor pain however in the last 2 to 3 months is substantially improved. Assessment and plan: Patient is a pleasant female with mild insertional Achilles tendon tearing nearly fully resolved after Worker's Compensation injury. -At this time we will have her continue active stretching. -Additionally in terms of her clinical improvement and MRI still surgical intervention is likely not warranted at this time especially compared to last month. Therefore can follow-up in 2 months for last visit to anticipate return of maximum improvement documented in this encounter [facility] documented as of this encounter (statuses as of 04/28/2022) [facility] History of Past illness Narrative* Problem Noted Date Diagnosed Date Resolved Date Epigastric pain 01/29/2019 03/26/2019 Nausea 01/29/2019 03/26/2019 documented as of this encounter (statuses as of 06/20/2023) [address]12-2019 History of Past illness Narrative* Problem Noted Date Diagnosed Date Resolved Date Epigastric pain 01/29/2019 03/26/2019 Nausea 01/29/2019 03/26/2019 documented as of this encounter (statuses as of 07/12/2023) [address]12-2019 History of Past illness Narrative* Problem Noted Date Diagnosed Date Resolved Date Epigastric pain 01/29/2019 03/26/2019 Nausea 01/29/2019 03/26/2019 documented as of this encounter (statuses as of 08/09/2023) [address]2019 History of Past illness Narrative* Problem Noted Date Diagnosed Date Resolved Date Epigastric pain 01/29/2019 03/26/2019 Nausea 01/29/2019 03/26/2019 documented as of this encounter (statuses as of 08/26/2023) [address]12-2019 History of Past illness Narrative* Problem Noted Date Diagnosed Date Resolved Date Epigastric pain 01/29/2019 03/26/2019 Nausea 01/29/2019 03/26/2019 documented as of this encounter (statuses as of 08/28/2023) [address]12[address]2019 History of Past illness Narrative* Problem Noted Date Diagnosed Date Resolved Date Epigastric pain 01/29/2019 03/26/2019 Nausea 01/29/2019 03/26/2019 documented as of this encounter (statuses as of 09/01/2023) [address]2019 History of Past illness Narrative* Problem Noted Date Diagnosed Date Resolved Date Epigastric pain 01/29/2019 03/26/2019 Nausea 01/29/2019 03/26/2019 documented as of this encounter (statuses as of 09/05/2023) [address]2019 History of Past illness Narrative* Problem Noted Date Diagnosed Date Resolved Date Epigastric pain 01/29/2019 03/26/2019 Nausea 01/29/2019 03/26/2019 documented as of this encounter (statuses as of 09/06/2023) [address]12[address]2019 History of Past illness Narrative* Problem Noted Date Diagnosed Date Resolved Date Epigastric pain 01/29/2019 03/26/2019 Nausea 01/29/2019 03/26/2019 documented as of this encounter (statuses as of 09/08/2023) [address]2019 History of Past illness Narrative* Problem Noted Date Diagnosed Date Resolved Date Epigastric pain 01/29/2019 03/26/2019 Nausea 01/29/2019 03/26/2019 documented as of this encounter (statuses as of 09/12/2023) [address]2019 History of Past illness Narrative* Problem Noted Date Diagnosed Date Resolved Date Epigastric pain 01/29/2019 03/26/2019 Nausea 01/29/2019 03/26/2019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
[2023-11-27 13:59] LABS: hCG Titer Quant., Serum 1691 mIU/mL (1-3)
== END | disposition home or self-care (01) ==
LOC: LAB 12:22
PROVIDERS: PCP Family Medicine; Referring Provider Nurse Practitioner Women's Health; Visit Provider Nurse Practitioner Women's Health
DX: N91.2 Amenorrhea, unspecified (principal)
CPT/HCPCS: 36415; 84702

== ENCOUNTER → 2023-11-29 | Outpatient (CLI) | payer BC, SELFPAY ==
--- OUTSIDE RECORDS SUMMARY | 2023-11-29 12:21 | XMS RPT_ITS | CCD ---
Author Name Unknown Address [address] [place] [address] Organization [facility] Care Team Providers Care Allied Health Instructor Name Role Phone Shilo, Serjio R Unavailable Unavailable No Doctor [...] Provider Olga Peterson MD Primary Care Provider [phone] SIMÓN MCKEON JR. Attending Unavailable OLGA PETERSON Primary Care Unavailable SIMÓN MCKEON JR. Attending Unavailable OLGA PETERSON Primary Care Unavailable Olga Peterson MD Primary Care Provider Olga Peterson MD Primary Care Provider OLGA PETERSON Primary Care Unavailable NORMA MUIR Attending Unavailable NEYDA VAZQUEZ Consulting Unavai lable EMERGENCY, TRIAGE PROTOCOL Admitting Unava ilable EMERGENCY, TRIAGE PROTOCOL Referring Unava ilable OLGA PETERSON Primary Care Unavailable EMERGENCY, TRIAGE PROTOCOL Admitting Unava ilable EMERGENCY, TRIAGE PROTOCOL Referring Unava ilable OLGA PETERSON Primary Care Unavailable Olga Peterson MD Primary Care Provider [phone] OLGA PETERSON Primary Care Unavailable SELINA REED Attending Unavailable OLGA PETERSON Primary Care Unavailable LEMON, ELIF Attending Unavailable PONCHO ADAIR Referring Unavailable JONAH SAUNDERS Attending Unavailable OLGA PETERSON Primary Care Unavailable JATIN, PARISH Referring Unavailable GUSTAOLGA Tello Primary Care Unavailable LEMON, ELIF Attending Unavailable GUSTAOLGA Tello Primary Care Unavailable JATIN, PARISH Referring Unavailable LEMON, ELIF Attending Unavailable JATIN, PARISH Attending Unavailable GUSTAOLGA Tello Primary Care Unavailable SHAHNAZ HSIEH Attending Unava ilable OLGA PETERSON [facility]ending Unavailable OLGA PETERSON Primary Care Unavailable GUSTAOLGA Tello Primary Care Unavailable JATIN, PARISH Referring Unavailable ANJUM CHRISTY Attending Unavailable OLGA PETERSON Primary Care Unavailable JATIN, PARISH Referring Unavailable GUSTAOLGA Tello R Primary Care Unavailable JATIN, PARISH Referring Unavailable GUSTAElisha, OLGA R Primary Care Unavailable JATIN, PARISH Referring Unavailable LEMON, ELIF Attending Unavailable LEMON, ELIF Attending Unavailable GUSTAOLGA Tello Primary Care Unavailable PONCHO ADAIR Referring Unavailable JONAH SAUNDERS Attending Unavailable OLGA PETERSON Primary Care Unavailable JATIN, PARISH Referring Unavailable GUSTAElisha, OLGA R Primary Care Unavailable LEMON, ELIF Attending Unavailable KONTAOLGA Tello R Primary Care Unavailable LEMON, ELIF Attending Unavailable JATIN, PARISH Referring Unavailable GUSTAOLGA Tello R Primary Care Unavailable Allergies Allergy Classification Reported Allergen(s) Allergy Type Date of Onset Reaction(s) Facility Latex (2 sources) Latex Substance Allergy [facility] Macrolides (antibiotic) (2 sources) Clarithromycin Drug Allergy [facility] (2 sources) clarithromycin; Translations: [Biaxin] Drug Allergy [facility] Repository (20 sources) Latex; Translations: [Latex] Propensity to adverse reactions (disorder) 5 [facility] Repository (1 source) No Known Allergies; Translations: [No Known Allergies] Propensity to adverse reactions to drug (disorder) [facility] Repository (20 sources) Clarithromycin; Translations: [CLARITHROMYCIN] Drug Allergy 5 [facility], Other [facility] Repository (20 sources) Seasonal allergy; Translations: [SEASONAL ALLERGIES] Propensity to adverse reactions (disorder) 5 [facility] Repository Medications Current Medications Medication Drug Class(es) [...] Drug Class(es) Dates Sig (Normalized) Sig (Original) [id number] 200 actuat albuterol 0.09 mg/actuat metered dose [...] encounter for closed fracture] Onset: 07-17-2023 Episodic Sprains and strains (7 sources) Rupture [...] of left foot] Onset: 04-09-2018 04-09-2018 Episodic Spondylosis; intervertebral disc disorders; other back problems (20 sources) Neck pain; Translations: [Cervicalgia] Onset: 08-21-2023 08-09-2023 Episodic Results Test Name Value Interpretation Reference Range Facil ity Vital Signs Date Time Vital Sign Value Performing Clinician Facility 10-24-2023 18:11-0500 Body height 170.2 cm Selina Reed VENDING MACHINE COLLECTOR-INJECTION MOLDING PROCESS TECHNICIAN Work Phone: [facility] 10-24-2023 18:11-0500 Body mass index (BMI) [Ratio] 18.01 kg/m2 Selina Reed VENDING MACHINE COLLECTOR-INJECTION MOLDING PROCESS TECHNICIAN Work Phone: [facility] 10-24-2023 18:11-0500 Body temperature 98.49 [degF] Selina Reed VENDING MACHINE COLLECTOR-INJECTION MOLDING PROCESS TECHNICIAN Work Phone: [facility] 10-24-2023 18:11-0500 Body weight 52.16 kg Selina Reed VENDING MACHINE COLLECTOR-INJECTION MOLDING PROCESS TECHNICIAN Work Phone: [facility] 10-24-2023 18:11-0500 Diastolic blood pressure 94 mm[Hg] Selina Reed VENDING MACHINE COLLECTOR-INJECTION MOLDING PROCESS TECHNICIAN Work Phone: [facility] 10-24-2023 18:11-0500 Heart rate 89 /min Selina Reed VENDING MACHINE COLLECTOR-INJECTION MOLDING PROCESS TECHNICIAN Work Phone: [facility] 10-24-2023 18:11-0500 Respiratory rate 18 /min Selina Reed VENDING MACHINE COLLECTOR-INJECTION MOLDING PROCESS TECHNICIAN Work Phone: [facility] 10-24-2023 18:11-0500 SaO2% (BldA) [Mass fraction] 97 % Selina Reed VENDING MACHINE COLLECTOR-INJECTION MOLDING PROCESS TECHNICIAN Work Phone: [facility] 10-24-2023 18:11-0500 Systolic blood pressure 127 mm[Hg] Selina Reed VENDING MACHINE COLLECTOR-INJECTION MOLDING PROCESS TECHNICIAN Work Phone: [facility] 10-09-2023 10:33-0500 Body temperature 99 [degF] Anastacio Saldana MD Work Phone: [facility] 10-09-2023 10:33-0500 Diastolic blood pressure 86 mm[Hg] Anastacio Saldana MD Work Phone: [facility] 10-09-2023 10:33-0500 Heart rate 93 /min Anastacio Saldana MD Work Phone: [facility] 10-09-2023 10:33-0500 Systolic blood pressure 129 mm[Hg] Anastacio Saldana MD Work Phone: [facility] 08-09-2023 13:36-0400 Body weight 52.16 kg Parish Jatin VENDING MACHINE COLLECTOR.INJECTION MOLDING PROCESS TECHNICIAN Work Phone: [facility] 08-09-2023 13:36-0400 Diastolic blood pressure 80 mm[Hg] Parish Jatin VENDING MACHINE COLLECTOR.INJECTION MOLDING PROCESS TECHNICIAN Work Phone: [facility] 08-09-2023 13:36-0400 Heart rate 87 /min Parish Jatin VENDING MACHINE COLLECTOR.INJECTION MOLDING PROCESS TECHNICIAN Work Phone: [facility] 08-09-2023 13:36-0400 Systolic blood pressure 127 mm[Hg] Parish Jatin VENDING MACHINE COLLECTOR.INJECTION MOLDING PROCESS TECHNICIAN Work Phone: [facility] 08-20-2021 13:37-0400 Body temperature 98.2 [degF] Simón Ghulam Jr., DPM Work Phone: [facility] 05-19-2021 09:39-0400 Body temperature 98.2 [degF] Simón Ghulam Jr., DPM Work Phone: [facility] 05-19-2021 09:39-0400 Diastolic blood pressure 92 mm[Hg] Simón Ghulam Jr., DPM Work Phone: [facility] 05-19-2021 09:39-0400 Heart rate 88 /min Simón Ghulam Jr., DPM Work Phone: [facility] 05-19-2021 09:39-0400 Systolic blood pressure 117 mm[Hg] Simón Ghulam Jr., DPM Work Phone: [facility] 04-14-2021 00:00-0400 Body height 170.2 cm Simón Mckeon Jr., DPM Work Phone: [facility] 04-14-2021 00:00-0400 Body mass index (BMI) [Ratio] 17.85 kg/m2 Simón Mckeon Jr., DPM Work Phone: [facility] 04-14-2021 00:00-0400 Body weight 51.71 kg Simón Mckeon Jr., DPM Work Phone: [facility] Encounters Encounter Date Encounter Type Care Provider Facility Start: 10-24-2023 End: 10-24-2023 ambulatory OLGA PETERSON [facility] Start: 10-24-2023 End: 10-24-2023 Patient encounter procedure Selina Reed VENDING MACHINE COLLECTOR-INJECTION MOLDING PROCESS TECHNICIAN Work Phone: [facility] Procedures Date Procedure Procedure Detail Performing Clinician Start: 03-24-2021 Mri any jt lower ext rem w/o contrast matrl Simón Mckeon DPM Work Phone: Start: 10-30-2020 Adult depression screening assessment Olga Peterson MD Work Phone: Plan of Treatment Date Care Activity Detail Author Start: 2043 Zoster Vaccines (1 of 2) Zoster Vaccines (1 of 2) [facility] Start: 07-17-2033 DTaP/Tdap/Td Vaccines (8 - Td or Tdap) DTaP/Tdap/Td Vaccines (8 - Td or Tdap) [facility] Start: 07-17-2033 Urine microalbumin profile DTaP,Tdap,Td Vaccine (8 - Td or Tdap) [facility] Start: 02-21-2028 PAP TESTING PAP TESTING [facility] Start: 08-16-2027 Tetanus vaccination Tetanus: Every 10yrs [facility] Start: 08-16-2027 Urine microalbumin profile [facility] Start: 08-09-2024 Annual PCP Team Chronic Disease Visit Annual PCP Team Chronic Disease Visit [facility] Start: 04-07-2024 ANNUAL PCP TEAM CHRONIC DISEASE VISIT ANNUAL PCP TEAM CHRONIC DISEASE VISIT [facility] Start: 07-21-2023 Influenza vaccination [facility] Start: 2023 HPV TESTING HPV TESTING [facility] Start: 11-20-2022 DEPRESSION ASSESSMENT DEPRESSION ASSESSMENT [facility] Start: 07-21-2022 Influenza vaccination INFLUENZA (Season Ended) [facility] Start: 10-30-2021 Adult depression screening assessment DEPRESSION SCREENING [facility] Start: 08-11-2021 End: 08-11-2021 Patient encounter procedure 08/11/2021 Office Visit Podiatry Simón Mckeon Jr., [address] [place] [address] [phone] [facility] Start: 07-21-2021 Influenza vaccination [facility] Start: 05-19-2021 End: 05-19-2021 Patient encounter procedure 05/19/2021 Office Visit Podiatry Simón Mckeon Jr., [address] [place] [address] [phone] [facility] Start: 04-17-2020 PAP TESTING PAP TESTING [facility] Start: 2014 Screening for malignant neoplasm of cervix [facility] Start: 06-17-2012 HPV Vaccines (3 - 3-dose series) HPV Vaccines (3 - 3-dose series) [facility] Start: 2011 Diabetes mellitus screening Diabetes Screening [facility] Start: 2011 Hepatitis C screening Hepatitis C Screening [facility] Start: 2011 HEPATITIS C SCREENING HEPATITIS C SCREENING [facility] Start: 2011 HIV SCREENING HIV SCREENING [facility] Start: 2011 SPIROMETRY SPIROMETRY [facility] Start: 2009 COVID-19 Vaccine (1) COVID-19 Vaccine (1) [facility] Start: 2008 HIV screening HIV Screening [facility] Start: 2005 COVID-19 Vaccine (1) COVID-19 Vaccine (1) [facility] Start: 2005 Depression screening using PHQ-9 (Patient Health Questionnaire 9) score Depression Screening (PHQ9) [facility] Start: 1999 PNEUMOCOCCAL (1 - PCV) PNEUMOCOCCAL (1 - PCV) [facility] Start: 1999 Pneumococcal vaccination Pneumococcal Vaccine (1 - PCV) [facility] Start: 1999 Pneumococcal Vaccine: Ped or At-Risk (1 of 2 - PPSV23) Pneumococcal Vaccine: Ped or At-Risk (1 of 2 - PPSV23) [facility] Start: 1998 COVID-19 VACCINE (#1) COVID-19 VACCINE (#1) [facility] Start: 1996 History and physical examination, annual for health maintenance Wellness Visit [facility] Start: 1993 COVID-19 VACCINE (#1) COVID-19 VACCINE (#1) [facility] Start: 1993 HIV screening HIV Screening [facility] Start: 1993 Lipid panel Lipid Panel [facility] Start: 1993 Screening for malignant neoplasm of cervix Pap Smear [facility] Start: 1993 Yearly Adult Physical Yearly Adult Physical [facility] End: 11-07-2024 Ct maxillofacial w/o contrast material CT FACIAL BONE/MEET WO IVCON Radiology Routine Deflected nasal septum 1 Occurrences starting 10/09/2023 until 11/07/2024 [facility] Work Phone: Immunizations Immunization Date Immunization Notes Care Provider [facility] 09-05-2018 influenza, seasonal, injectable Olga Peterson MD Work Phone: [facility] 09-05-2018 influenza virus vacc ine, unspecified formulation Parish Avalos VENDING MACHINE COLLECTOR.INJECTION MOLDING PROCESS TECHNICIAN Work Phone: [facility] 06-04-2018 hepatitis B vaccine, adult dosage Olga Peterson MD Work Phone: [facility] 01-04-2018 hepatitis B vaccine, adult dosage Olga Peterson MD Work Phone: [facility] 01-04-2018 varicella virus vaccine Efrem Peterson MD Work Phone: [facility] 12-04-2017 hepatitis B vaccine, pediatric or pediatric/adolescent dosage Olga Peterson MD Work Phone: [facility] 12-04-2017 varicella virus vaccine Efrem Peterson MD Work Phone: [facility] 08-16-2017 tetanus toxoid, redu erika diphtheria toxoid, and acellular pertussis vaccine, adsorbed Olga Peterson MD Work Phone: [facility] 09-10-2015 influenza, injectabl e, quadrivalent, contains preservative Olga Peterson MD Work Phone: [facility] 02-16-2012 human papilloma viru s vaccine, bivalent Olga Peterson MD Work Phone: [facility] 02-16-2012 human papilloma viru s vaccine, quadrivalent Olga Peterson MD Work Phone: [facility] 02-16-2012 HPV, unspecified formulation Selina Noelcarolyne VENDING MACHINE COLLECTOR-INJECTION MOLDING PROCESS TECHNICIAN Work Phone: [facility] Work Phone: 01-05-2010 human papilloma viru s vaccine, bivalent Olga Peterson MD Work Phone: [facility] 01-05-2010 human papilloma viru s vaccine, quadrivalent Olga Peterson MD Work Phone: [facility] 01-05-2010 meningococcal oligosaccharide (groups A, C, Y and W-135) diphtheria toxoid conjugate vaccine (MCV4O) Olga Peterson MD Work Phone: [facility] 01-05-2010 meningococcal polysaccharide (groups A, C, Y and W-135) diphtheria toxoid conjugate vaccine (MCV4P) Olga Peterson MD Work Phone: [facility] 12-22-2008 influenza virus vacc ine, unspecified formulation Olga Peterson MD Work Phone: [facility] 12-22-2008 influenza virus vacc ine, whole virus Olga Peterson MD Work Phone: [facility] 02-13-2007 meningococcal oligosaccharide (groups A, C, Y and W-135) diphtheria toxoid conjugate vaccine (MCV4O) Olga Peterson MD Work Phone: [facility] 02-13-2007 meningococcal polysaccharide (groups A, C, Y and W-135) diphtheria toxoid conjugate vaccine (MCV4P) Olga Peterson MD Work Phone: [facility] 07-15-1998 diphtheria, tetanus toxoids and acellular pertussis vaccine Olga Peterson MD Work Phone: [facility] 07-15-1998 diphtheria, tetanus toxoids and acellular pertussis vaccine, unspecified formulation Olga Peterson MD Work Phone: [facility] 07-15-1998 poliovirus vaccine, inactivated Olga Peterson MD Work Phone: [facility] 09-28-1994 diphtheria, tetanus toxoids and acellular pertussis vaccine Olga Peterson MD Work Phone: [facility] 09-28-1994 diphtheria, tetanus toxoids and acellular pertussis vaccine, unspecified formulation Olga Peterson MD Work Phone: [facility] 06-29-1994 haemophilus influenz ae type b vaccine, HbOC conjugate Olga Peterson MD Work Phone: [facility] 06-29-1994 haemophilus influenz ae type b vaccine, PRP-T conjugate Olga Peterson MD Work Phone: [facility] 06-29-1994 measles, mumps and rubella virus vaccine Olga Peterson MD Work Phone: [facility] 06-29-1994 poliovirus vaccine, inactivated Olga Peterson MD Work Phone: [facility] 04-20-1994 hepatitis B vaccine, pediatric or pediatric/adolescent dosage Olga Peterson MD Work Phone: [facility] 1993 diphtheria, tetanus toxoids and acellular pertussis vaccine Olga Peterson MD Work Phone: [facility] 1993 diphtheria, tetanus toxoids and acellular pertussis vaccine, unspecified formulation Olga Peterson MD Work Phone: [facility] 1993 haemophilus influenz ae type b vaccine, HbOC conjugate Olga Peterson MD Work Phone: [facility] 1993 haemophilus influenz ae type b vaccine, PRP-T conjugate Olga ePterson MD Work Phone: [facility] 1993 diphtheria, tetanus toxoids and acellular pertussis vaccine Olga Peterson MD Work Phone: [facility] 1993 diphtheria, tetanus toxoids and acellular pertussis vaccine, unspecified formulation Olga Peterson MD Work Phone: [facility] 1993 haemophilus influenz ae type b vaccine, HbOC conjugate Olga Peterson MD Work Phone: [facility] 1993 haemophilus influenz ae type b vaccine, PRP-T conjugate Olga Peterson MD Work Phone: [facility] 1993 poliovirus vaccine, inactivated Olga Peterson MD Work Phone: [facility] 1993 hepatitis B vaccine, pediatric or pediatric/adolescent dosage Olga Peterson MD Work Phone: [facility] 1993 diphtheria, tetanus toxoids and acellular pertussis vaccine Olga Peterson MD Work Phone: [facility] 1993 diphtheria, tetanus toxoids and acellular pertussis vaccine, unspecified formulation Olga Peterson MD Work Phone: [facility] 1993 haemophilus influenz ae type b vaccine, HbOC conjugate Olga Peterson MD Work Phone: [facility] 1993 haemophilus influenz ae type b vaccine, PRP-T conjugate Olga Peterson MD Work Phone: [facility] 1993 poliovirus vaccine, inactivated Olga Peterson MD Work Phone: [facility] 1993 hepatitis B vaccine, pediatric or pediatric/adolescent dosage Olga Peterson MD Work Phone: [facility] Payers Date Payer Category Payer Unknown [id number] 2021 Worker's Compensation [id number] 2021 Worker's Compensation [id number] 2020 Unknown [id number] 2020 Unknown MMO MMO [employer] [id number] 2020-Present [phone] [address] [place] [address] PPO [id number] 2017 Unknown 2011 Unknown ANTHEM ANTHEM BLUE/PREF/HMO/PPO [id number] 2011-Present [id number] 1993 Unknown [id number]. 1993 Unknown [id number] [id number] 1993 Unknown [id number] 2.16.840.1.946090.3.579.2 1993 Unknown [id number] 2.16.840.1.754766.3.579.2 1993 Unknown [id number] 2.16.840.1.129397.3.579.2 1993 Unknown [id number] 2.16.840.1.193686.3.579.2. 1993 Unknown [id number] 2.16.840.1.457597.3.579.2. 1993 Unknown [id number] 2.16.840.1.894644.3.579.2. 1993 Unknown [id number] 2.16.840.1.022511.3.579.2 1993 Unknown [id number] 2.16.840.1.910144.3.579.2. 717 1993 Unknown [id number] 2.16.840.1.788829.3.579.2. 278 1993 Unknown [id number] 2.16.840.1.849630.3.579.2. 903 1993 Unknown [id number] 2.16.840.1.139529.3.579.2. 903 1993 Unknown [id number] 2.16.840.1.153214.3.579.2. 903 1993 Unknown [id number] 2.16.840.1.105840.3.579.2. 903 1993 Unknown [id number] 2.16.840.1.346464.3.579.2. 903 1993 Unknown [id number] 2.16.840.1.795724.3.579.2. 1243 Unknown [id number] Social History Date Type Detail Facility Tobacco smoking stat [facility] Unknown if ever smoked [facility] Start: 1993 Sex Assigned At Not on file [facility] Start: 10-14-2023 End: 10-24-2023 Exposure to SARS-CoV-2 (event) Not sure [facility] Start: 05-10-2021 End: 10-24-2023 Tobacco smoking status PRIS Never smoker [facility] Start: 05-10-2021 End: 10-24-2023 Tobacco use and exposure Never used [facility] Start: 05-10-2021 End: 08-20-2021 Alcohol intake Ex-drinker (finding) [facility] Start: 10-29-2021 End: 10-09-2023 Alcohol intake Current non-drinker of alcohol (finding) [facility] Start: 10-30-2020 End: 04-07-2023 History of Social function [facility] Start: 10-30-2020 End: 04-07-2023 Social connection and isolation panel [facility] In a typical week, h ow many times do you talk on the telephone with family, friends, or neighbors? Patient refused [facility] Are you now , , , , never or living with a partner? Refused [facility] (I/We) worried esperanza er (my/our) food would run out before (I/we) got money to buy more. DK or Refused [facility] In the past 12 month s, was there a time when you were not able to pay the mortgage or rent on time? No [facility] Start: 10-24-2023 Alcohol intake Lifetime non-d francois (finding) [facility] Work Phone: Clinical Notes 01-29-2019 to [...] and symptoms. Symptoms have been refractory to [id number] medications. Vitals: 10/24/23 1811 BP: (!) 127/94 [...] or any new concerns. Selina Reed CNP [facility] [phone] documented in this encounter [facility] Work Phone: 10-19-2023 Miscellaneous Notes Pharmacy verified in WebEvents Patient has been identified by name and [...] Shiela Hall MA documented in this encounter [facility] 10-09-2023 Note HNO ID: [id number] Author: Sarai Gonzáles ST Service: ? Author Type: Chaplain Type: Progress Notes Filed: 10/09/2023 11:49 AM Note Text: DATE OF PHOTOS: 10/09/2023 Body Part: Full Face and Oral ST Melita October 09, 2023 11:49 AM [facility] 10-09-2023 Note HNO ID: [id number] Author: Sarai Gonzáles ST Service: ? Author Type: Chaplain Type: Progress Notes Filed: 10/09/2023 11:19 AM Note Text: DATE OF PHOTOS: 10/09/2023 Body Part: Full Face and Oral ST Melita October 09, 2023 11:19 AM [facility] 10-09-2023 Note HNO ID: [id number] Author: Anastacio Pratt MD Service: ? Author Type: Physician Type: [...] RELIEF) 50 mcg/actuation nasal spray Use 1 [place] in each nostril twice daily. 18.2 mL [...] upper lip lower (more content not included)... [facility] 10-09-2023 History of Presen t illness Narrative DATE OF PHOTOS: 10/09/2023 Body Part: Full Face and Oral ST Melita October 09, 2023 11:49 AM documented in this encounter [facility] 10-09-2023 History of Presen t illness Narrative DATE OF PHOTOS: 10/09/2023 Body Part: Full Face and Oral ST Melita October 09, 2023 11:19 AM documented in this encounter [facility] 10-09-2023 History of Presen t illness Narrative Plastic [...] RELIEF) 50 mcg/actuation nasal spray Use 1 [place] in each nostril twice daily. 18.2 mL [...] Past Histories independently gathered by the clinical application support administrator/resident and the remaining scribed note accurately describes my personal service to the patient. 30 minutes of the total visit were spent face to face with patient. Greater than 50% of the time was spent for counseling and coordination of care, discussing treatment options and recommendations. Anastacio Saldana MD October 09, 2023 11:15 AM This note was generated with voice recognition software and may contain errors, including spelling, grammar, syntax and misrecognition of what was dictated, that are not fully corrected. documented in this encounter [facility] 09-27-2023 Note HNO ID: [id number] Author: Elif Callahan PT Service: ? Author [...] Stop Time : 1205 Elif Callahan PT [facility] 09-27-2023 History of Presen t illness Narrative Program_ID:[id number] Access Code: [email or web address] URL: [email or web address] Date: 09-27-2023 Prepared By: Elif Callahan Program [...] Elif Callahan PT documented in this encounter [facility] 09-18-2023 Note HNO ID: [id number] Author: Elif Callahan PT Service: ? Author [...] Patient to be seen for Therapeutic exercise (45248), Neuromuscular re-education (87979), Manual therapy (97217), Self-chcf management (93730), Patient/Family/Caregiver Education PLAN FOR NEXT VISIT: Continue [...] states she is going to follow up [facility] Plastics for the paraesthesias R lip and [...] education as not (more content not included)... [facility] 09-18-2023 History of Presen t illness Narrative [...] Patient to be seen for Therapeutic exercise (87263), Neuromuscular re-education (44223), Manual therapy (00309), Self-chcf management (62344), Patient/Family/Caregiver Education PLAN FOR NEXT VISIT: Continue [...] states she is going to follow up [facility] Pl[facility] for the paraesthesias R lip and [...] scalenes, upper traps 3: IASTM using [employer] Consultant scanner tool to cervical paraspinals, scalenes, upper [...] Elif Callahan PT documented in this encounter [facility] 09-15-2023 Note HNO ID: [id number] Author: Elif Callahan PT Service: ? Author [...] scalenes, upper traps 3: IASTM using [employer] Consultant boomerang tool to cervical paraspinals, scalenes, upper [...] Session Stop Time : 1100 Brianna Vasquez, LIZ Callahan, PT [facility] 09-15-2023 History of Presen t illness Narrative [...] scalenes, upper traps 3: IASTM using [employer] Consultant boomerang tool to cervical paraspinals, scalenes, upper [...] LIZ Luz PT documented in this encounter [facility] 09-12-2023 Note HNO ID: [id number] Author: Bertha Blanco PT Service: ? Author [...] scalenes, upper traps 3: IASTM using [employer] Consultant boomerang tool to cervical paraspinals, scalenes, upper [...] Stop Time : 1100 LIZ Luz, PT [facility] 09-12-2023 History of Presen t illness Narrative [...] scalenes, upper traps 3: IASTM using [employer] Consultant boomerang tool to cervical paraspinals, scalenes, upper [...] LIZ Luz PT documented in this encounter [facility] 09-08-2023 Note HNO ID: [id number] Author: Elif Callahan PT Service: ? Author [...] scalenes, upper traps 3: IASTM using [employer] Consultant boomerang tool to cervical paraspinals, scalenes, upper [...] 944 Session Stop Time : 1030 Elif Callahan, PT [facility] 09-08-2023 History of Presen t illness Narrative [...] scalenes, upper traps 3: IASTM using [employer] Consultant boomerang tool to cervical paraspinals, scalenes, upper [...] Elif Callahan PT documented in this encounter [facility] 09-06-2023 Note HNO ID: [id number] Author: Anjum Christy MD Service: ? Author Type: Physician Type: Progress Notes Filed: 09/06/2023 2:59 PM Note Text: HPI: This is Ms. Nancy Pickard a 28 year old female from who presents to the [facility] neurology department with a chief complaint of facial weakness Referring provider: Parish Sanchez E [place] [id number] Patient here for ER follow-up on 07/17. Was evaluated there after a syncopal episode following blood donation where she fell and hit her head. She has was diagnosed with a concussion and nasal bone fracture and also had a laceration to the lateral right lower part of her nose. Has donated blood previously with no problems, but not since before [facility]. Saw ENT on 07/21 and everything was [...] RELIEF) 50 mcg/actuation nasal spray Use 1 [place] in each nostril twice daily. 18.2 mL [...] Status 12/14/2018 2 (more content not included)... [facility] 09-04-2023 Note HNO ID: [id number] Author: Elif Callahan, PT Service: ? Author [...] Session Stop Time : 1225 Brianna Vasquez, BLOWER INSTALLER Elif Callahan, PT [facility] 09-04-2023 History of Presen t illness Narrative [...] LIZ Luz PT documented in this encounter [facility] 09-01-2023 Note HNO ID: [id number] Author: Elif Callahan PT Service: ? Author [...] Stop Time : 1435 Elif Callahan, PT [facility] 09-01-2023 History of Presen t illness Narrative Episode Visit Count: 4 Therapist That Will Accept/Oversee The Plan Of Care: [place] Elif Start of Care Date: 08/21/23 Onset Date: [...] Elif Callahan PT documented in this encounter [facility] 08-28-2023 Note HNO ID: [id number] Author: Elif Callahan PT Service: ? Author [...] Stop Time : 1122 Elif Callahan PT [facility] 08-28-2023 History of Presen t illness Narrative [...] Time : 1035 Session Stop Time : 112 Elif Callahan PT documented in this encounter [facility] 08-25-2023 Note HNO ID: [id number] Author: Elif Callahan PT Service: ? Author [...] 946 Session Stop Time : 1031 Elif Callahan, PT [facility] 08-25-2023 History of Presen t illness Narrative Episode Visit Count: 2 Therapist That Will Accept/Oversee The Plan Of Care: LondonE[place] Start of Care Date: 08/21/23 Onset Date: [...] Elif Callahan PT documented in this encounter [facility] 08-21-2023 Note HNO ID: [id number] Author: Elif Callahan PT Service: ? 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 50t (more content not included)... [facility] 08-09-2023 Note HNO ID: [id number] Author: Parish Avalos APRN.INJECTION MOLDING PROCESS TECHNICIAN Service: ? Author Type: Nurse Practitioner Type: [...] with no problems, but not since before [facility]. Saw ENT on 07/21 and everything was [...] RELIEF) 50 mcg/actuation nasal spray Use 1 [place] in each nostril twice daily. CETIRIZINE HCL [...] 20 tablet; Refill: 0 Parish Avalos APRN.INDRA [facility] 08-09-2023 Instructions Parish Avalos APRN.INDRA - 08/09/2023 1:43 PM EDT Images from the original note were not included. 08/09/2023 To Whom It May Concern, Nancy Pickard has been evaluated at the [facility] for concussion. A concussion is typically a [...] under the supervision of a medical professional. [place] has laws requiring youth athletes to complete a progressive return to sports activity progression prior to returning to competition. Please refer to your [facility] department of health rules and laws prior [...] the recovery plan. You may also visit [email or web address] for more information. Sincerely, Parish Avalos APRN.INJECTION MOLDING PROCESS TECHNICIAN Frequently Asked Questions about Concussion What is [...] imaging with a CT or MRI. All [facility] states have laws to protect youth/student athletes [...] or to make an appointment, go to [email or web address] or call [phone] ([phone]). What does concussion treatment/management involve? Most patients [...] or to make an appointment, go to [email or web address] or call [phone] ([phone]). I can t seem to focus or [...] or to make an appointment, go to [email or web address] or call [phone] ([phone]). 1 How to Manage Concussion Symptoms The [...] or to make an appointment, go to [email or web address] ion or call [phone] ([phone]). 1 NECK PAIN: TIPS FOR MANAGEMENT Discomfort [...] or to make an appointment, go to [email or web address] or call [phone] ([phone]). documented in this encounter [facility] 08-09-2023 History of Presen t illness Narrative Images from the original note were not included. This note was created using [employer]. Subjective Nanyc Pickard is a 28 year old female. [...] with no problems, but not since before [facility]. Saw ENT on 07/21 and everything was [...] RELIEF) 50 mcg/actuation nasal spray Use 1 [place] in each nostril twice daily. CETIRIZINE HCL [...] Dispense: 20 tablet; Refill: 0 Parish Avalos APRN.INJECTION MOLDING PROCESS TECHNICIAN documented in this encounter [facility] 07-12-2023 Note HNO ID: [id number] Author: Jonah Saunders PT Service: ? Author Type: Physical Therapist Type: Progress Notes Filed: 07/12/2023 9:19 AM Note Text: [facility] DME ISSUE NOTE Patient identified by name and date: Yes Subjective: Nancy Pickard is a 28 year old female seen today for fitting and fruit picker of refurbished pair of custom foot [...] Custom biomechanical foot orthotics with serial number: #[id number] were issued to patient and proof of receipt form signed by pt and therapist. All specifications for custom foot orthotics can be found in orthotic evaluation visit note. Planned Interventions: Follow up as needed for brace fitting/issues. Billing:[facility]: Equipment: L4210 x1 repair/refurbishment of custom foot orthotics No charge for time Total time: 9 minutes Jonah Saunders PT [facility] 07-12-2023 History of Presen t illness Narrative [facility] DME ISSUE NOTE Patient identified by name and date: Yes Subjective: Nancy Pickard is a 28 year old female seen today for fitting and fruit picker of refurbished pair of custom foot [...] Custom biomechanical foot orthotics with serial number: #[id number] were issued to patient and proof of receipt form signed by pt and therapist. All specifications for custom foot orthotics can be found in orthotic evaluation visit note. Planned Interventions: Follow up as needed for brace fitting/issues. Billing:[facility]: Equipment: L4210 x1 repair/refurbishment of custom foot orthotics No charge for time Total time: 9 minutes Jonah Saunders PT documented in this encounter [facility] 06-20-2023 Note HNO ID: [id number] Author: Jonah Saunders PT Service: ? Author [...] 15 minutes Orthotic/Prosthetic Adjustment and Training (Subsequent) (74017): 1:1 time: 15 minutes (1 unit: 8-22 mins) [facility] 06-20-2023 History of Presen t illness Narrative [...] 15 minutes Orthotic/Prosthetic Adjustment and Training (Subsequent) (10583): 1:1 time: 15 minutes (1 unit: 8-22 mins) documented in this encounter [facility] 04-07-2023 Note HNO ID: [id number] Author: Shahnaz Mosqueda APRN.INJECTION MOLDING PROCESS TECHNICIAN Service: ? Author Type: Nurse Practitioner Type: Progress Notes Filed: 04/07/2023 1:47 PM Note Text: VIRTUAL VISIT PROGRESS NOTE This is a virtual visit using [employer] video visit. It required patient-provider interaction for the medical decision making as documented below. I have communicated my name and active licensure. The patient's identity and physical location were verified at the time of this visit. Either the patient or their legal videotape sales representative has been informed of the risks [...] leaving to head out of state to [place] so wanted refill to take with her. [...] RELIEF) 50 mcg/actuation nasal spray Use 1 [place] in each nostril twice daily. CETIRIZINE HCL [...] on file for this visit. Shahnaz Mosqueda APRN.INJECTION MOLDING PROCESS TECHNICIAN [facility] 04-28-2022 Miscellaneous Notes Received imaging from [facility]. Placed in provider's inbox for review. Route to MA scanning. documented in this encounter [facility] 08-20-2021 History of Presen t illness Narrative [...] any new issues. documented in this encounter [facility] 05-19-2021 History of Presen t illness Narrative [...] of maximum improvement documented in this encounter [facility] documented as of this encounter (statuses as of 04/28/2022) [facility] History of Past illness Narrative* Problem Noted Date Diagnosed Date Resolved Date Epigastric pain 01/29/2019 03/26/2019 Nausea 01/29/2019 03/26/2019 documented as of this encounter (statuses as of 06/20/2023) [place] [address]-12-2019 History of Past illness Narrative* Problem Noted Date Diagnosed Date Resolved Date Epigastric pain 01/29/2019 03/26/2019 Nausea 01/29/2019 03/26/2019 documented as of this encounter (statuses as of 07/12/2023) [address]2019 History of Past illness Narrative* Problem Noted Date Diagnosed Date Resolved Date Epigastric pain 01/29/2019 03/26/2019 Nausea 01/29/2019 03/26/2019 documented as of this encounter (statuses as of 08/09/2023) [address]2019 History of Past illness Narrative* Problem Noted Date Diagnosed Date Resolved Date Epigastric pain 01/29/2019 03/26/2019 Nausea 01/29/2019 03/26/2019 documented as of this encounter (statuses as of 08/26/2023) [address]2019 History of Past illness Narrative* Problem Noted Date Diagnosed Date Resolved Date Epigastric pain 01/29/2019 03/26/2019 Nausea 01/29/2019 03/26/2019 documented as of this encounter (statuses as of 08/28/2023) [address]2019 History of Past illness Narrative* Problem Noted Date Diagnosed Date Resolved Date Epigastric pain 01/29/2019 03/26/2019 Nausea 01/29/2019 03/26/2019 documented as of this encounter (statuses as of 09/01/2023) [address]2019 History of Past illness Narrative* Problem Noted Date Diagnosed Date Resolved Date Epigastric pain 01/29/2019 03/26/2019 Nausea 01/29/2019 03/26/2019 documented as of this encounter (statuses as of 09/05/2023) [address]2019 History of Past illness Narrative* Problem Noted Date Diagnosed Date Resolved Date Epigastric pain 01/29/2019 03/26/2019 Nausea 01/29/2019 03/26/2019 documented as of this encounter (statuses as of 09/06/2023) [address]2019 History of Past illness Narrative* Problem Noted Date Diagnosed Date Resolved Date Epigastric pain 01/29/2019 03/26/2019 Nausea 01/29/2019 03/26/2019 documented as of this encounter (statuses as of 09/08/2023) [address]2019 History of Past illness Narrative* Problem Noted Date Diagnosed Date Resolved Date Epigastric pain 01/29/2019 03/26/2019 Nausea 01/29/2019 03/26/2019 documented as of this encounter (statuses as of 09/12/2023) [address]2019 History of Past illness Narrative* Problem Noted Date Diagnosed Date Resolved Date Epigastric pain 01/29/2019 03/26/2019 Nausea 01/29/2019 03/26/2019 documented as of this encounter (statuses as of 09/15/2023) [address]2019 History of Past illness Narrative* Problem Noted Date Diagnosed Date Resolved Date Epigastric pain 01/29/2019 03/26/2019 Nausea 01/29/2019 03/26/2019 documented as of this encounter (statuses as of 09/19/2023) [address]2019 History of Past illness Narrative* Problem Noted Date Diagnosed Date Resolved Date Epigastric pain 01/29/2019 03/26/2019 Nausea 01/29/2019 03/26/2019 documented as of this encounter (statuses as of 09/28/2023) [address]2019 History of Past illness Narrative* Problem Noted Date Diagnosed Date Resolved Date Epigastric pain 01/29/2019 03/26/2019 Nausea 01/29/2019 03/26/2019 documented as of this encounter (statuses as of 10/09/2023) [address]2019 History of Past illness Narrative* Problem Noted Date Diagnosed Date Resolved Date Epigastric pain 01/29/2019 03/26/2019 Nausea 01/29/2019 03/26/2019 documented as of this encounter (statuses as of 10/09/2023) [address]2019 History of Past illness Narrative* Problem Noted Date Diagnosed Date Resolved Date Epigastric pain 01/29/2019 03/26/2019 Nausea 01/29/2019 03/26/2019 documented as of this encounter (statuses as of 10/19/2023) [facility] Diagnosis Contusion of left foot, initial encounter Rupture of left Achilles tendon, initial encounter [facility] Diagnosis Asthma, unspecified asthma severity, unspecified whether complicated, unspecified whether persistent Contusion of left foot, initial encounter Strain of Achilles tendon, left, initial encounter Achilles tendinitis, unspecified laterality Postcalcaneal bursitis, unspecified laterality documented in this encounter [facility] note* Diagnosis Rupture of left Achilles tendon, initial encounter- Primary documented in this encounter [facility] note* Diagnosis Rupture of left Achilles tendon, initial encounter- Primary documented in this encounter [facility] note* Diagnosis Pes planus of both feet- Primary Chronic pain of left ankle Posterior tibial tendon dysfunction Other disorders of synovium, tendon, and bursa documented in this encounter [facility] note* Diagnosis Weakness of face muscles- Primary Facial weakness Decreased sensation Disturbance of skin sensation Cervicalgia Neck stiffness Torticollis, unspecified documented in this encounter [facility] note* Diagnosis Cervicalgia- Primary documented in this encounter [facility] note* Diagnosis Cervicalgia- Primary documented in this encounter [facility] note* Diagnosis Cervicalgia- Primary documented in this encounter [facility] note* Diagnosis Cervicalgia- Primary documented in this encounter [facility] note* Diagnosis Cervicalgia- Primary documented in this encounter [facility] note* Diagnosis Cervicalgia- Primary documented in this encounter [facility] note* Diagnosis Cervicalgia- Primary documented in this encounter [facility] note* Diagnosis Deflected nasal septum- Primary Deviated nasal septum Breathing difficult Other dyspnea and respiratory abnormality 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 documented in this encounter [facility] note* Diagnosis URI, acute Acute upper respiratory infections of unspecified site documented in this encounter [facility] note* Diagnosis Acute non-recurrent maxillary sinusitis- Primary documented in this encounter [facility] Work Phone: Summary Purpose Family History [...] FoundDocuments on File Type Date Recorded 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 Operator Expl anation Advance Directives and Livin g Will 03/24/2021 8:10 AM Documents on File Type Date Recorded 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 Operator Expl anation Advance Directives and Livin g Will 03/24/2021 8:10 AM Documents on File Type Date Recorded 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 Operator Expl anation Advance Directive(s) 01/31/2019 9:40 AM Reason for Referral Status Reason Specialty Diagnoses / Procedures Referre d By Contact Referred To Contact Closed Radiology Diagnoses Contusion of left foot, initial encounter Rupture of left Achilles tendon, initial encounter Procedures MR Ankle Left Without Contrast Simón Mckeon Jr., DPM [address] [place] [address] Specialty Diagnoses / Procedures Referred By Contac t Referred To Contact [facility] Diagnoses Cervicalgia Procedures CONSULT TO PHYSICAL THERAPY PHYSICAL THERAPY EVALUATION HIGH COMPLEX 45 MINS Parish Avalos APRN.INJECTION MOLDING PROCESS TECHNICIAN [address] [place] [address] [address] [address] [facility] [address] [place] [address] Referral ID Status Reason Start Date Expiration Date V isits Requested Visits Authorized [id number] Closed Auto-Generate d Referral 08/09/2023 08/08/2024 1 1 Specialty Diagnoses / Procedures Referred By Contac t Referred To Contact Neurology Diagnoses Weakness of face muscles Decreased sensation Procedures CONSULT TO NEUROLOGY OFFICE/OUTPATIENT [facility] MDM 60-74 MINUTES Parish Avalos, VENDING MACHINE COLLECTOR.INJECTION MOLDING PROCESS TECHNICIAN [address] [place] [address] Referral ID Status Reason Start Date Expiration Date Visits Requested Visits Authorized [id number] Authorized PCP Requested Referral 08/09/2023 08/08/2024 1 1 Specialty Diagnoses / Procedures Referred By Contac t Referred To Contact CT IMAGING Diagnoses Deflected nasal septum Procedures CT FACIAL BONE/MEET WO IVCON CT MAXILLOFACIAL W/O CONTRAST MATERIAL Anastacio Pratt MD [address] [place] [address] Ct Imaging [facility] Referral ID Status Reason Start Date Expiration Date Visits Requested Visits Authorized [id number] Pending Review Auto-Generat ed Referral 11/07/2024 1 1 Additional Source Comments INFORMATION SOURCE (unrecogn ized section and content) DATE CREATED AUTHOR AUTHOR'S ORGANIZ ATION 10/03/2018 [facility] DATE CREATED AUTHOR AUTHOR'S ORGANIZ ATION [facility]/15/2019 [facility] DATE CREATED AUTHOR AUTHOR'S ORGANIZ ATION 03/22/2019 [facility] DATE CREATED AUTHOR AUTHOR'S ORGANIZ ATION 07/06/2021 [facility] DATE CREATED AUTHOR AUTHOR'S ORGANIZ ATION 08/15/2021 [facility] DATE CREATED AUTHOR AUTHOR'S ORGANIZ ATION 08/21/2021 [facility] DATE CREATED AUTHOR AUTHOR'S ORGANIZ ATION 07/18/2023 [facility] DATE CREATED AUTHOR AUTHOR'S ORGANIZ ATION 10/08/2023 [facility] DATE CREATED AUTHOR AUTHOR'S ORGANIZ ATION 10/26/2023 [facility] DATE CREATED AUTHOR AUTHOR'S ORGANIZ ATION 11/28/2023 [facility] Reason for Visit (unrecogniz ed section and content) Specialty Diagnoses / Procedures Referred By Contac t Referred To Contact Physical Therapy / PHYSICAL THERAPY Diagnoses needs a new pair Procedures EST RS PT ORTHOTIC Self Jonah Saunders, PT [address] [place] [address] Referral ID Status Reason Start Date Expiration Date V isits Requested Visits Authorized [id number] Authorized 11/20/2022 11/19/2023 20 20 Reason Comments PT Progress Note Status Reason Specialty Diagnoses / Procedures Referre d By Contact Referred To Contact Closed Radiology Diagnoses Contusion of left foot, initial encounter Rupture of left Achilles tendon, initial encounter Procedures MR Ankle Left Without Contrast Simón Mckeon Jr., DPM [address] [place] [address] Reason Comments Tendonitis FU left foot. Reason [...] Care Teams (unrecognized sec tion and content) Allied Health Instructor Relationship Specialty Start Date End Date Olga Peterson MD [address] [place] [address] PCP - General Family Practice 11/25/14 Allied Health Instructor Relationship Specialty Start Date End Date Olga Peterson MD [address] [place] [address] PCP - General Family Medicine 11/25/14 Allied Health Instructor Relationship Specialty Start Date End Date Olga Peterson MD [address] [place] [address] PCP - General Family Medicine 11/25/14 Allied Health Instructor Relationship Specialty Start Date End Date Olga Peterson MD [address] [place] [address] PCP - General Family Medicine 11/25/14 Allied Health Instructor Relationship Specialty Start Date End Date Olga Peterson MD [address] [place] [address] PCP - General Family Medicine 11/25/14 Allied Health Instructor Relationship Specialty Start Date End Date Olga Peterson MD [address] [place] [address] PCP - General Family Medicine 11/25/14 Allied Health Instructor Relationship Specialty Start Date End Date Olga Peterson MD [address] [place], [place] [id number] PCP - General Family Medicine 11/25/14 Allied Health Instructor Relationship Specialty Start Date End Date Olga Peterson MD [address] [place], [place] [id number] PCP - General Family Medicine 11/25/14 Allied Health Instructor Relationship Specialty Start Date End Date Olga Peterson MD [address] [place] [address] PCP - General Family Medicine 11/25/14 Allied Health Instructor Relationship Specialty Start Date End Date Olga Peterson MD [address] [place] [address] PCP - General Family Medicine 11/25/14 Allied Health Instructor Relationship Specialty Start Date End Date Olga Peterson MD [address] [place] [address] PCP - General Family Medicine 11/25/14 Allied Health Instructor Relationship Specialty [place] [address] [place] [id number] PCP - General Family Medicine 11/25/14 Allied Health Instructor Relationship Specialty Start Date End Date Olga Peterson MD [address] [place] [address] PCP - General Family Medicine 11/25/14 Allied Health Instructor Relationship Specialty Start Date End Date Olga Peterson MD [address] [facility] [place] [address] PCP - General 01/09/21 Source Comments (unrecognize d section and content) In the event this informatio n is protected by the Federal Confidentiality of Alcohol and Drug Abuse Patient Records regulations: The Federal rules restrict any use of the information to criminally investigate or prosecute any alcohol or drug abuse patient.[facility] Center[facility] the event this information is protected by the Federal Confidentiality of Alcohol and Drug Abuse Patient Records regulations: The Federal rules restrict any use of the information to criminally investigate or prosecute any alcohol or drug abuse patient.[facility] CenterIn the event this information is protected by the Federal Confidentiality of Alcohol and Drug Abuse Patient Records regulations: The Federal rules restrict any use of the information to criminally investigate or prosecute any alcohol or drug abuse patient.[facility] Center[facility] the event this information is protected by the Federal Confidentiality of Alcohol and Drug Abuse Patient Records regulations: The Federal rules restrict any use of the information to criminally investigate or prosecute any alcohol or drug abuse patient.[facility] CenterIn the event this information is protected by the Federal Confidentiality of Alcohol and Drug Abuse Patient Records regulations: The Federal rules restrict any use of the information to criminally investigate or prosecute any alcohol or drug abuse patient.[facility] Center[facility] the event this information is protected by the Federal Confidentiality of Alcohol and Drug Abuse Patient Records regulations: The Federal rules restrict any use of the information to criminally investigate or prosecute any alcohol or drug abuse patient.[facility] Center[facility] the event this information is protected by the Federal Confidentiality of Alcohol and Drug Abuse Patient Records regulations: The Federal rules restrict any use of the information to criminally investigate or prosecute any alcohol or drug abuse patient.[facility] CenterIn the event this information is protected by the Federal Confidentiality of Alcohol and Drug Abuse Patient Records regulations: The Federal rules restrict any use of the information to criminally investigate or prosecute any alcohol or drug abuse patient.[facility] CenterIn the event this information is protected by the Federal Confidentiality of Alcohol and Drug Abuse Patient Records regulations: The Federal rules restrict any use of the information to criminally investigate or prosecute any alcohol or drug abuse patient.[facility] CenterIn the event this information is protected by the Federal Confidentiality of Alcohol and Drug Abuse Patient Records regulations: The Federal rules restrict any use of the information to criminally investigate or prosecute any alcohol or drug abuse patient.[facility] CenterIn the event this information is protected by the Federal Confidentiality of Alcohol and Drug Abuse Patient Records regulations: The Federal rules restrict any use of the information to criminally investigate or prosecute any alcohol or drug abuse patient.[facility] CenterIn the event this information is protected by the Federal Confidentiality of Alcohol and Drug Abuse Patient Records regulations: The Federal rules restrict any use of the information to criminally investigate or prosecute any alcohol or drug abuse patient.[facility] CenterIn the event this information is protected by the Federal Confidentiality of Alcohol and Drug Abuse Patient Records regulations: The Federal rules restrict any use of the information to criminally investigate or prosecute any alcohol or drug abuse patient.[facility] CenterIn the event this information is protected by the Federal Confidentiality of Alcohol and Drug Abuse Patient Records regulations: The Federal rules restrict any use of the information to criminally investigate or prosecute any alcohol or drug abuse patient.[facility] CenterIn the event this information is protected by the Federal Confidentiality of Alcohol and Drug Abuse Patient Records regulations: The Federal rules restrict any use of the information to criminally investigate or prosecute any alcohol or drug abuse patient.[facility] CenterIn the event this information is protected by the Federal Confidentiality of Alcohol and Drug Abuse Patient Records regulations: The Federal rules restrict any use of the information to criminally investigate or prosecute any alcohol or drug abuse patient.[facility] CenterIn the event this information is protected by the Federal Confidentiality of Alcohol and Drug Abuse Patient Records regulations: The Federal rules restrict any use of the information to criminally investigate or prosecute any alcohol or drug abuse patient.[facility] CenterIn the event this information is protected by the Federal Confidentiality of Alcohol and Drug Abuse Patient Records regulations: The Federal rules restrict any use of the information to criminally investigate or prosecute any alcohol or drug abuse patient.[facility] FOR RECORDS PERTAINING TO PATIENTS WHO ARE [...] BE BASED ON THE PRIMARY CLINICAL RECORDS. [facility]. provides no warranty or guarantee of the accuracy or completeness of information in this document.
[2023-11-29 14:24] LABS: hCG Titer Quant., Serum 2094 mIU/mL (1-3)
== END | disposition home or self-care (01) ==
LOC: LAB 11:51
PROVIDERS: PCP Family Medicine; Referring Provider Nurse Practitioner Women's Health; Visit Provider Nurse Practitioner Women's Health
DX: N91.2 Amenorrhea, unspecified (principal)
CPT/HCPCS: 36415; 84702

== ENCOUNTER → 2023-12-01 | Outpatient (CLI) | payer BC, SELFPAY ==
[2023-12-01 13:31] LABS: hCG Titer Quant., Serum 3453 mIU/mL (1-3)
== END | disposition home or self-care (01) ==
LOC: LAB 11:56
PROVIDERS: PCP Family Medicine; Referring Provider Obstetrics & Gynecology; Visit Provider Obstetrics & Gynecology
DX: Z34.90 Encounter for supervision of normal pregnancy, unspecified, unspecified trimester (principal); Z3A.00 Weeks of gestation of pregnancy not specified
CPT/HCPCS: 36415; 84702

== ENCOUNTER → 2023-12-06 | Outpatient (CLI) | payer BC, SELFPAY ==
--- NOTE | 2023-12-06 13:29 | US_ITS ---
ACR Level 3 findings have been noted. An addendum which confirms receipt of the report will follow. HISTORY: threatened -- CALL OFFICE WITH WET READ. LMP 10/21/2023. TECHNIQUE: Transvaginal pelvic ultrasound was performed. 91 images. COMPARISON: None. FINDINGS: UTERUS: 9.9 x 4.6 x 6.5 cm. 1.5 x 1.5 x 1.9 cm round hypoechoic lesion on the right. RIGHT OVARY: 1.7 x 1.8 x 3.6 cm. No adnexal masses. LEFT OVARY: 2.8 x 4.1 x 4.9 cm. 2.2 x 2.5 x 2.4 cm cyst with internal echoes. 1.8 x 2 x 2.5 cm simple cyst. FREE FLUID: Trace. INTRAUTERINE GESTATIONAL SAC: Single. Mean sac diameter 13 mm corresponding to 6 weeks 1 day. YOLK SAC: 3 mm. POLE: [place]-rump length 6 mm corresponding to 6 weeks 4 days. ESTIMATED DELIVERY DATE: 07/28/2024. HEART MOTION: 120 bpm. PLACENTA: Not visualized due to age. SUBCHORIONIC HEMORRHAGE: None demonstrated. US/Transvaginal w/Preg US IMPRESSION: Intrauterine with an estimated gestational age of 6 weeks 4 days and heart tones demonstrated. 1.9 cm uterine leiomyoma. 2.5 cm left ovarian corpus luteal cyst. 2.5 cm left ovarian simple cyst. Trace free fluid in the pelvis. Electronically Signed: Silvia Adams MD at 14:56 EST ,
== END | disposition home or self-care (01) ==
LOC: US 13:29
PROVIDERS: PCP Family Medicine; Referring Provider Obstetrics & Gynecology; Visit Provider Obstetrics & Gynecology
DX: O20.0 Threatened abortion (principal); Z3A.00 Weeks of gestation of pregnancy not specified
CPT/HCPCS: 76817

== ENCOUNTER → 2023-12-22 | Outpatient (CLI) | payer BC, SELFPAY ==
--- OUTSIDE RECORDS SUMMARY | 2023-12-22 18:15 | XMS RPT_ITS | CCD ---
Author Name Unknown Address [address] [place] [address] Organization [facility] Care Team Providers Care Parking Patroller Name Role Phone Shilo, Serjio R Unavailable [...] Provider Olga Peterson MD Primary Care Provider [phone] SIMÓN MCKEON JR. Attending Unavailable OLGA PETERSON [...] ilable NICHOLAS, OLGA R Primary Care Unavailable Olga Peterson MD Primary Care Provider OLGA PETERSON Primary Care Unavailable SELINA REED Attending Unavailable GUSTAElisha, OLGA R Primary Care Unavailable LEMON, ELIF Attending Unavailable PONCHO ADAIR Referring Unavailable KONTAK, OLGA R Primary Care Unavailable JONAH SAUNDERS Attending Unavailable JATIN, PARISH Referring Unavailable KONTAK, OLGA R Primary Care Unavailable LEMON, ELIF Attending Unavailable JATIN, PARISH Referring Unavailable KONTAK, OLGA R Primary Care Unavailable LEMON, ELIF Attending Unavailable JATNI, PARISH Attending Unavailable KONTAK, OLGA R Primary Care Unavailable KONTAK, OLGA R Primary Care Unavailable SHAHNAZ HSIEH Attending Unava ilable NICHOLAS, OLGA R Primary Care Unavailable PARHTA BUSH Attending Unavailable JATIN, PARISH Referring Unavailable KONTAK, OLGA R Primary Care Unavailable ANJUM CHRISTY Attending Unavailable JATIN, PARISH Referring Unavailable KONTAK, OLGA R Primary Care Unavailable JATIN, PARISH Referring Unavailable KONTAK, OLGA R Primary Care Unavailable JATIN, PARISH Referring Unavailable KONTAK, OLGA R Primary Care Unavailable LEMON, ELIF Attending Unavailable KONTAK, OLGA R Primary Care Unavailable LEMON, ELIF Attending Unavailable PONCHO ADAIR Referring Unavailable KONTAK, OLGA R Primary Care Unavailable JONAH SAUNDERS Attending Unavailable JATIN, PARISH Referring Unavailable KONTAK, OLGA R Primary Care Unavailable LEMON, ELIF Attending Unavailable KONTAK, OLGA R Primary Care Unavailable LEMON, ELIF Attending Unavailable JATIN, PARISH Referring Unavailable KONTAK, OLGA R Primary Care Unavailable Allergies Allergy Classification Reported Allergen(s) Allergy Type Date of Onset Reaction(s) Facility Latex (2 sources) Latex Substance Allergy [facility] Macrolides (antibiotic) (2 sources) Clarithromycin Drug Allergy [facility] (2 sources) clarithromycin; Translations: [Biaxin] Drug Allergy [facility] Repository (20 sources) Latex; Translations: [Latex] Propensity to adverse reactions (disorder) 5 [facility] Repository (1 source) No Known Allergies; Translations: [No Known Allergies] Propensity to adverse reactions to drug (disorder) [facility] Repository (20 sources) Clarithromycin; Translations: [CLARITHROMYCIN] Drug Allergy 5 [facility] Repository (20 sources) Seasonal allergy; Translations: [SEASONAL ALLERGIES] Propensity to adverse reactions (disorder) 5 [facility] Repository Medications Current Medications Medication [...] Drug Class(es) Dates Sig (Normalized) Sig (Original) [id number] 200 actuat albuterol 0.09 mg/actuat metered dose [...] muscles; Translations: [Facial weakness] 08-09-2023 Episodic Other lower respiratory disease (1 source) [...] unspecified leg] Onset: 08-09-2018 08-09-2018 Episodic Other injuries and conditions due to external causes (1 source) Injury of facial nerve, right side, initial encounter; Translations: [Injury of right facial nerve, initial encounter] Onset: 09-06-2023 Episodic Other non-traumatic joint disorders (20 sources) [...] 18:11-0500 Body height 170.2 cm Selina Reed CHORAL DIRECTOR-BINITROTOLUENE OPERATOR Work Phone: [facility] 10-24-2023 18:11-0500 Body mass index (BMI) [Ratio] 18.01 kg/m2 Selina Reed CHORAL DIRECTOR-BINITROTOLUENE OPERATOR Work Phone: [facility] 10-24-2023 18:11-0500 Body temperature 98.49 [degF] Selina Reed CHORAL DIRECTOR-BINITROTOLUENE OPERATOR Work Phone: [facility] 10-24-2023 18:11-0500 Body weight 52.16 kg Selina Reed CHORAL DIRECTOR-BINITROTOLUENE OPERATOR Work Phone: [facility] 10-24-2023 18:11-0500 Diastolic blood pressure 94 mm[Hg] Selina Reed CHORAL DIRECTOR-BINITROTOLUENE OPERATOR Work Phone: [facility] 10-24-2023 18:11-0500 Heart rate 89 /min Selina Reed CHORAL DIRECTOR-BINITROTOLUENE OPERATOR Work Phone: [facility] 10-24-2023 18:11-0500 Respiratory rate 18 /min Selina Reed CHORAL DIRECTOR-BINITROTOLUENE OPERATOR Work Phone: [facility] 10-24-2023 18:11-0500 SaO2% (BldA) [Mass fraction] 97 % Selina Reed CHORAL DIRECTOR-BINITROTOLUENE OPERATOR Work Phone: [facility] 10-24-2023 18:11-0500 Systolic blood pressure 127 mm[Hg] Selina Reed CHORAL DIRECTOR-BINITROTOLUENE OPERATOR Work Phone: [facility] 10-09-2023 10:33-0500 Body temperature 99 [degF] Partha Saldana MD Work Phone: [facility] 10-09-2023 10:33-0500 Diastolic blood pressure 86 mm[Hg] Partha Saldana MD Work Phone: [facility] 10-09-2023 10:33-0500 Heart rate 93 /min Partha Saldana MD Work Phone: [facility] 10-09-2023 10:33-0500 Systolic blood pressure 129 mm[Hg] Partha Saldana MD Work Phone: [facility] 08-09-2023 13:36-0400 Body weight 52.16 kg Parish Jatin CHORAL DIRECTOR.BINITROTOLUENE OPERATOR Work Phone: [facility] 08-09-2023 13:36-0400 Diastolic blood pressure 80 mm[Hg] Parish Jatin CHORAL DIRECTOR.BINITROTOLUENE OPERATOR Work Phone: [facility] 08-09-2023 13:36-0400 Heart rate 87 /min Parish Jatin CHORAL DIRECTOR.BINITROTOLUENE OPERATOR Work Phone: [facility] 08-09-2023 13:36-0400 Systolic blood pressure 127 mm[Hg] Parish Jatin CHORAL DIRECTOR.BINITROTOLUENE OPERATOR Work Phone: [facility] 08-20-2021 13:37-0400 Body temperature 98.2 [degF] Simón Ghulam Jr., DPM Work Phone: [facility] 05-19-2021 09:39-0400 Body temperature 98.2 [degF] Simón Ghulam Jr., DPM Work Phone: [facility] 05-19-2021 09:39-0400 Diastolic blood pressure 92 mm[Hg] Simón Ghulam Jr., DPM Work Phone: [facility] 05-19-2021 09:39-0400 Heart rate 88 /min Simón Ghulam Jr., DPM Work Phone: [facility] 05-19-2021 09:39-0400 Systolic blood pressure 117 mm[Hg] Simón Ghulam Jr., DPM Work Phone: [facility] 04-14-2021 00:00-0400 Body height 170.2 cm Simón Mckeon Jr., DPM Work Phone: [facility] 04-14-2021 00:00-0400 Body mass index (BMI) [Ratio] 17.85 kg/m2 Simón Mckeon Jr., DPM Work Phone: [facility] 04-14-2021 00:00-0400 Body weight 51.71 kg Simón Mckeon Jr., DPM Work Phone: [facility] Encounters Encounter Date Encounter Type Care Provider Facility Start: 10-24-2023 End: 10-24-2023 ambulatory OLGA PETERSON [facility] Start: 10-24-2023 End: 10-24-2023 Patient encounter procedure Selina Reed CHORAL DIRECTOR-BINITROTOLUENE OPERATOR Work Phone: [facility] Procedures Date Procedure Procedure Detail Performing Clinician Start: 03-24-2021 Mri any jt lower ext rem w/o contrast matrl Simón Mckeon DPM Work Phone: Start: 10-30-2020 Adult depression screening assessment Olga Peterson MD Work Phone: Plan of Treatment Date Care Activity Detail Author Start: 2043 Zoster Vaccines (1 of 2) Zoster Vaccines (1 of 2) [facility] Start: 07-17-2033 DTaP/Tdap/Td Vaccines (8 - Td or Tdap) DTaP/Tdap/Td Vaccines (8 - Td or Tdap) [facility] Start: 07-17-2033 Urine microalbumin profile DTaP,Tdap,Td Vaccine (8 - Td or Tdap) [facility] Start: 02-21-2028 PAP TESTING PAP TESTING [facility] Start: 08-16-2027 Tetanus vaccination Tetanus: Every 10yrs [facility] Start: 08-16-2027 Urine microalbumin profile [facility] Start: 08-09-2024 Annual PCP Team Chronic Disease Visit Annual PCP Team Chronic Disease Visit [facility] Start: 04-07-2024 ANNUAL PCP TEAM CHRONIC DISEASE VISIT ANNUAL PCP TEAM CHRONIC DISEASE VISIT [facility] Start: 07-21-2023 Influenza vaccination [facility] Start: 2023 HPV TESTING HPV TESTING [facility] Start: 11-20-2022 DEPRESSION ASSESSMENT DEPRESSION ASSESSMENT [facility] Start: 07-21-2022 Influenza vaccination INFLUENZA (Season Ended) [facility] Start: 10-30-2021 Adult depression screening assessment DEPRESSION SCREENING [facility] Start: 08-11-2021 End: 08-11-2021 Patient encounter procedure 08/11/2021 Office Visit Podiatry Simón Mckeon Jr., [address] [place] [address] [phone] [facility] Start: 07-21-2021 Influenza vaccination [facility] Start: 05-19-2021 End: 05-19-2021 Patient encounter procedure 05/19/2021 Office Visit Podiatry Simón Mckeon Jr., [address] [place] [address] [phone] [facility] Start: 04-17-2020 PAP TESTING PAP TESTING [facility] Start: 2014 Screening for malignant neoplasm of cervix [facility] Start: 06-17-2012 HPV Vaccines (3 - 3-dose series) HPV Vaccines (3 - 3-dose series) [facility] Start: 2011 Diabetes mellitus screening Diabetes Screening [facility] Start: 2011 Hepatitis C screening Hepatitis C Screening [facility] Start: 2011 HEPATITIS C SCREENING HEPATITIS C SCREENING [facility] Start: 2011 HIV SCREENING HIV SCREENING [facility] Start: 2011 SPIROMETRY SPIROMETRY [facility] Start: 2009 COVID-19 Vaccine (1) COVID-19 Vaccine (1) [facility] Start: 2008 HIV screening HIV Screening [facility] Start: 2005 COVID-19 Vaccine (1) COVID-19 Vaccine (1) [facility] Start: 2005 Depression screening using PHQ-9 (Patient Health Questionnaire 9) score Depression Screening (PHQ9) [facility] Start: 1999 PNEUMOCOCCAL (1 - PCV) PNEUMOCOCCAL (1 - PCV) [facility] Start: 1999 Pneumococcal vaccination Pneumococcal Vaccine (1 - PCV) [facility] Start: 1999 Pneumococcal Vaccine: Ped or At-Risk (1 of 2 - PPSV23) Pneumococcal Vaccine: Ped or At-Risk (1 of 2 - PPSV23) [facility] Start: 1998 COVID-19 VACCINE (#1) COVID-19 VACCINE (#1) [facility] Start: 1996 History and physical examination, annual for health maintenance Wellness Visit [facility] Start: 1993 COVID-19 VACCINE (#1) COVID-19 VACCINE (#1) [facility] Start: 1993 HIV screening HIV Screening [facility] Start: 1993 Lipid panel Lipid Panel [facility] Start: 1993 Screening for malignant neoplasm of cervix Pap Smear [facility] Start: 1993 Yearly Adult Physical Yearly Adult Physical [facility] End: 11-07-2024 Ct maxillofacial w/o contrast material CT FACIAL BONE/MEET WO IVCON Radiology Routine Deflected nasal septum 1 Occurrences starting 10/09/2023 until 11/07/2024 [facility] Work Phone: Immunizations Immunization Date Immunization Notes Care Provider [facility] 09-05-2018 influenza, seasonal, injectable Olga Peterson MD Work Phone: [facility] 09-05-2018 influenza virus vacc ine, unspecified formulation Parish Avalos CHORAL DIRECTOR.BINITROTOLUENE OPERATOR Work Phone: [facility] 06-04-2018 hepatitis B vaccine, adult dosage Olga Peterson MD Work Phone: [facility] 01-04-2018 hepatitis B vaccine, adult dosage Olga Peterson MD Work Phone: [facility] 01-04-2018 varicella virus vaccine Efrem Peterson MD Work Phone: [facility] 12-04-2017 hepatitis B vaccine, pediatric or pediatric/adolescent dosage Olga Peterson MD Work Phone: [facility] 12-04-2017 varicella virus vaccine Efrem Peterson MD Work Phone: [facility] 08-16-2017 tetanus toxoid, redu erika diphtheria toxoid, and acellular pertussis vaccine, adsorbed Olga Peterson MD Work Phone: [facility] 09-10-2015 influenza, injectabl e, quadrivalent, contains preservative Olga Peterson MD Work Phone: [facility] 02-16-2012 human papilloma viru s vaccine, bivalent Olga Peterson MD Work Phone: [facility] 02-16-2012 human papilloma viru s vaccine, quadrivalent Olga Peterson MD Work Phone: [facility] 02-16-2012 HPV, unspecified formulation Selina Noelcarolyne CHORAL DIRECTOR-BINITROTOLUENE OPERATOR Work Phone: [facility] Work Phone: 01-05-2010 human papilloma viru s vaccine, bivalent Olga Peterson MD Work Phone: [facility] 01-05-2010 human papilloma viru s vaccine, quadrivalent Olga Peterson MD Work Phone: [facility] 01-05-2010 meningococcal oligosaccharide (groups A, C, Y and W-135) diphtheria toxoid conjugate vaccine (MCV4O) Olga Peterson MD Work Phone: [facility] 01-05-2010 meningococcal polysaccharide (groups A, C, Y and W-135) diphtheria toxoid conjugate vaccine (MCV4P) Ogla Peterson MD Work Phone: [facility] 12-22-2008 influenza virus vacc ine, unspecified formulation Olga Peterson MD Work Phone: [facility] 12-22-2008 influenza virus vacc ine, whole virus Olga Peterson MD Work Phone: [facility] 02-13-2007 meningococcal oligosaccharide (groups A, C, Y and W-135) diphtheria toxoid conjugate vaccine (MCV4O) Olga Peterson MD Work Phone: [facility] 02-13-2007 meningococcal polysaccharide (groups A, C, Y and W-135) diphtheria toxoid conjugate vaccine (MCV4P) Olga Peterson MD Work Phone: [facility] 07-15-1998 diphtheria, tetanus toxoids and acellular pertussis vaccine Olga Peterson MD Work Phone: [facility] 07-15-1998 diphtheria, tetanus toxoids and acellular pertussis vaccine, unspecified formulation Olga Peterson MD Work Phone: [facility] 07-15-1998 poliovirus vaccine, inactivated Olga Peterson MD Work Phone: [facility] 09-28-1994 diphtheria, tetanus toxoids and acellular pertussis vaccine Olga Peterson MD Work Phone: [facility] 09-28-1994 diphtheria, tetanus toxoids and acellular pertussis vaccine, unspecified formulation Olga Peterson MD Work Phone: [facility] 06-29-1994 haemophilus influenz ae type b vaccine, HbOC conjugate Olga Peterson MD Work Phone: [facility] 06-29-1994 haemophilus influenz ae type b vaccine, PRP-T conjugate Olga Peterson MD Work Phone: [facility] 06-29-1994 measles, mumps and rubella virus vaccine Olga Peterson MD Work Phone: [facility] 06-29-1994 poliovirus vaccine, inactivated Olga Peterson MD Work Phone: [facility] 04-20-1994 hepatitis B vaccine, pediatric or pediatric/adolescent dosage Olga Peterson MD Work Phone: [facility] 1993 diphtheria, tetanus toxoids and acellular pertussis vaccine Olga Peterson MD Work Phone: [facility] 1993 diphtheria, tetanus toxoids and acellular pertussis vaccine, unspecified formulation Olga Peterson MD Work Phone: [facility] 1993 haemophilus influenz ae type b vaccine, HbOC conjugate Olga Peterson MD Work Phone: [facility] 1993 haemophilus influenz ae type b vaccine, PRP-T conjugate Olga Peterson MD Work Phone: [facility] 1993 diphtheria, tetanus toxoids and acellular pertussis vaccine Olga Peterson MD Work Phone: [facility] 1993 diphtheria, tetanus toxoids and acellular pertussis vaccine, unspecified formulation Olga Peterson MD Work Phone: [facility] 1993 haemophilus influenz ae type b vaccine, HbOC conjugate Olga Peterson MD Work Phone: [facility] 1993 haemophilus influenz ae type b vaccine, PRP-T conjugate Olga Peterson MD Work Phone: [facility] 1993 poliovirus vaccine, inactivated Olga Peterson MD Work Phone: [facility] 1993 hepatitis B vaccine, pediatric or pediatric/adolescent dosage Olga Peterson MD Work Phone: [facility] 1993 diphtheria, tetanus toxoids and acellular pertussis vaccine Olga Peterson MD Work Phone: [facility] 1993 diphtheria, tetanus toxoids and acellular pertussis vaccine, unspecified formulation Olga Peterson MD Work Phone: [facility] 1993 haemophilus influenz ae type b vaccine, HbOC conjugate Olga Peterson MD Work Phone: [facility] 1993 haemophilus influenz ae type b vaccine, PRP-T conjugate Olga Peterson MD Work Phone: [facility] 1993 poliovirus vaccine, inactivated Olga Peterson MD Work Phone: [facility] 1993 hepatitis B vaccine, pediatric or pediatric/adolescent dosage Olga Peterson MD Work Phone: [facility] Payers Date Payer Category Payer Unknown [id number] 2021 Worker's Compensation [id number] 2021 Worker's Compensation [id number] 2020 Unknown [id number] 2020 Unknown MMO MMO [employer] [id number] 2020-Present [phone] [address] [place] [address] PPO [id number] 2017 Unknown 2011 Unknown ANTHEM ANTHEM BLUE/PREF/HMO/PPO [id number] 2011-Present [id number] 1993 Unknown [id number] [id number]. 1993 Unknown [id number] 2.16.840.1.558760.3.579.2 1993 Unknown [id number] 2.16.840.1.851958.3.579.2 1993 Unknown [id number] 2.16.840.1.308766.3.579.2 1993 Unknown [id number] 2.16.840.1.570011.3.579.2 1993 Unknown [id number] 2.16.840.1.666487.3.579.2. 1993 Unknown [id number] 2.16.840.1.430004.3.579.2. 1993 Unknown [id number] 2.16.840.1.471178.3.579.2. 1993 Unknown [id number] 2.16.840.1.803636.3.579.2 1993 Unknown [id number] 2.16.840.1.119646.3.579.2. 717 1993 Unknown [id number] 2.16.840.1.886655.3.579.2. 278 1993 Unknown [id number] 2.16.840.1.691358.3.579.2. 903 1993 Unknown [id number] 2.16.840.1.328313.3.579.2. 903 1993 Unknown [id number] 2.16.840.1.595250.3.579.2. 903 1993 Unknown [id number] 2.16.840.1.237440.3.579.2. 903 1993 Unknown [id number] 2.16.840.1.300596.3.579.2. 903 1993 Unknown [id number] 2.16.840.1.644487.3.579.2. 1243 Unknown [id number] Social History Date Type Detail Facility Tobacco smoking stat [facility] Unknown if ever smoked [facility] Start: 1993 Sex Assigned At Not on file [facility] Start: 10-14-2023 End: 10-24-2023 Exposure to SARS-CoV-2 (event) Not sure [facility] Start: 05-10-2021 End: 10-24-2023 Tobacco smoking status VAIS Never smoker [facility] Start: 05-10-2021 End: 10-24-2023 Tobacco use and exposure Never used [facility] Start: 05-10-2021 End: 08-20-2021 Alcohol intake Ex-drinker (finding) [facility] Start: 10-29-2021 End: 10-09-2023 Alcohol intake Current non-drinker of alcohol (finding) [facility] Start: 10-30-2020 End: 04-07-2023 History of Social function [facility] Start: 10-30-2020 End: 04-07-2023 Social connection and isolation panel [facility] In a typical week, h ow many times do you talk on the telephone with family, friends, or neighbors? Patient refused [facility] Are you now , , , , never or living with a partner? Refused [facility] (I/We) worried esperanza er (my/our) food would run out before (I/we) got money to buy more. DK or Refused [facility] In the past 12 month s, was there a time when you were not able to pay the mortgage or rent on time? No [facility] Start: 10-24-2023 Alcohol intake Lifetime non-d francois (finding) [facility] Work Phone: Clinical Notes 01-29-2019 to [...] and symptoms. Symptoms have been refractory to [id number] medications. Vitals: 10/24/23 1811 BP: (!) 127/94 [...] or any new concerns. Selina Reed CNP [facility] [phone] documented in this encounter [facility] Work Phone: 10-19-2023 Miscellaneous Notes Pharmacy verified in [employer] Patient has been identified by name and [...] Shiela Hall MA documented in this encounter [facility] 10-09-2023 Note HNO ID: [id number] Author: Sarai Gonzáles ST Service: ? Author Type: Honey Producer Type: Progress Notes Filed: 10/09/2023 11:49 AM Note Text: DATE OF PHOTOS: 10/09/2023 Body Part: Full Face and Oral ST Melita October 09, 2023 11:49 AM [facility] 10-09-2023 Note HNO ID: [id number] Author: Sarai Gonzáles ST Service: ? Author Type: Honey Producer Type: Progress Notes Filed: 10/09/2023 11:19 AM Note Text: DATE OF PHOTOS: 10/09/2023 Body Part: Full Face and Oral ST Melita October 09, 2023 11:19 AM [facility] 10-09-2023 Note HNO ID: [id number] Author: Partha Bush MD Service: ? Author Type: Physician Type: [...] RELIEF) 50 mcg/actuation nasal spray Use 1 Surfside in each nostril twice daily. 18.2 mL [...] upper lip lower (more content not included)... [facility] 10-09-2023 History of Presen t illness Narrative DATE OF PHOTOS: 10/09/2023 Body Part: Full Face and Oral ST Melita October 09, 2023 11:49 AM documented in this encounter [facility] 10-09-2023 History of Presen t illness Narrative DATE OF PHOTOS: 10/09/2023 Body Part: Full Face and Oral ST Melita October 09, 2023 11:19 AM documented in this encounter [facility] 10-09-2023 History of Presen t illness [...] RELIEF) 50 mcg/actuation nasal spray Use 1 Surfside in each nostril twice daily. 18.2 mL [...] Past Histories independently gathered by the clinical sales support representative/resident and the remaining scribed note accurately describes [...] not fully corrected. documented in this encounter [facility] 09-27-2023 Note HNO ID: [id number] Author: Elif Callahan PT Service: ? Author [...] Stop Time : 1205 Elif Callahan PT [facility] 09-27-2023 History of Presen t illness Narrative Program_ID:[id number] Access Code: [email or web address] URL: [email or web address] Date: 09-27-2023 Prepared By: Elif Callahan Program [...] Elif Callahan PT documented in this encounter [facility] 09-18-2023 Note HNO ID: [id number] Author: Elif Callahan PT Service: ? Author [...] Patient to be seen for Therapeutic exercise (19127), Neuromuscular re-education (56524), Manual therapy (98622), Self-skilled nursing management (50254), Patient/Family/Caregiver Education PLAN FOR NEXT VISIT: Continue [...] states she is going to follow up [facility] Plastics for the paraesthesias R lip [...] education as not (more content not included)... [facility] 09-18-2023 History of Presen t illness [...] Patient to be seen for Therapeutic exercise (73511), Neuromuscular re-education (54692), Manual therapy (74016), Self-skilled nursing management (18589), Patient/Family/Caregiver Education PLAN FOR NEXT VISIT: Continue [...] states she is going to follow up [facility] Plastics for the paraesthesias R lip [...] scalenes, upper traps 3: IASTM using [employer] Manager scanner tool to cervical paraspinals, scalenes, upper [...] Elif Callahan PT documented in this encounter [facility] 09-15-2023 Note HNO ID: [id number] Author: Elif Callahan PT Service: ? Author [...] scalenes, upper traps 3: IASTM using [employer] Manager boomerang tool to cervical paraspinals, scalenes, upper [...] : 1100 Brianna Vasquez, LIZ Callahan, PT [facility] 09-15-2023 History of Presen t illness [...] scalenes, upper traps 3: IASTM using [employer] Manager boomerang tool to cervical paraspinals, scalenes, upper [...] LIZ Luz PT documented in this encounter [facility] 09-12-2023 Note HNO ID: [id number] Author: Bertha Blanco PT Service: ? Author [...] scalenes, upper traps 3: IASTM using [employer] Manager boomerang tool to cervical paraspinals, scalenes, upper [...] Stop Time : 1100 LIZ Luz, PT [facility] 09-12-2023 History of Presen t illness [...] scalenes, upper traps 3: IASTM using [employer] Manager boomerang tool to cervical paraspinals, scalenes, upper [...] LIZ Luz PT documented in this encounter [facility] 09-08-2023 Note HNO ID: [id number] Author: Elif Callahan PT Service: ? Author [...] scalenes, upper traps 3: IASTM using [employer] Manager boomerang tool to cervical paraspinals, scalenes, upper [...] Stop Time : 1030 Elif Callahan, PT [facility] 09-08-2023 History of Presen t illness Narrative Episode Visit Count: 6 Therapist That Will Accept/Oversee The Plan Of Care: Elif Callahan Start of Care Date: 08/21/23 Onset Date: 07/17/23 Patient Identified by Name and Date of : Yes REHABILITATION AND SPORTS THERAPY PHYSICAL THERAPY TREATMENT NOTE ASSESSMENT: aNncy Pickard tolerated the session with no issues. [...] scalenes, upper traps 3: IASTM using [employer] Manager boomerang tool to cervical paraspinals, scalenes, upper [...] Elif Callahan PT documented in this encounter [facility] 09-06-2023 Note HNO ID: [id number] Author: Anjum Christy MD Service: ? Author Type: Physician Type: Progress Notes Filed: 09/06/2023 2:59 PM Note Text: HPI: This is Ms. Nancy Pickard a 28 year old female from who presents to the [facility] neurology department with a chief complaint of facial weakness Referring provider: Parish Sanchez [place] [id number] Patient here for ER follow-up on 07/17. Was evaluated there after a syncopal episode following blood donation where she fell and hit her head. She has was diagnosed with a concussion and nasal bone fracture and also had a laceration to the lateral right lower part of her nose. Has donated blood previously with no problems, but not since before [facility]. Saw ENT on 07/21 and everything [...] RELIEF) 50 mcg/actuation nasal spray Use 1 Surfside in each nostril twice daily. 18.2 mL [...] Status 12/14/2018 2 (more content not included)... [facility] 09-04-2023 Note HNO ID: [id number] Author: Elif Callahan, PT Service: ? Author [...] Session Stop Time : 1225 Brianna Vasquez, HULL DRAFTER Elif Callahan, PT [facility] 09-04-2023 History of Presen t illness [...] LIZ Luz PT documented in this encounter [facility] 09-01-2023 Note HNO ID: [id number] Author: Elif Callahan PT Service: ? Author [...] Stop Time : 1435 Elif Callahan, PT [facility] 09-01-2023 History of Presen t illness [...] Elif Callahan PT documented in this encounter [facility] 08-28-2023 Note HNO ID: [id number] Author: Elif Callahan PT Service: ? Author [...] Stop Time : 1122 Elif Callahan PT [facility] 08-28-2023 History of Presen t illness [...] Elif Callahan PT documented in this encounter [facility] 08-25-2023 Note HNO ID: [id number] Author: Elif Callahan PT Service: ? Author [...] Stop Time : 1031 Elif Callahan, PT [facility] 08-25-2023 History of Presen t illness [...] Elif Callahan PT documented in this encounter [facility] 08-21-2023 Note HNO ID: [id number] Author: Elif Callahan PT Service: ? 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 50t (more content not included)... [facility] 08-09-2023 Note HNO ID: [id number] Author: Parish Avalos APRN.BINITROTOLUENE OPERATOR Service: ? Author Type: Nurse Practitioner Type: [...] with no problems, but not since before [facility]. Saw ENT on 07/21 and everything [...] RELIEF) 50 mcg/actuation nasal spray Use 1 Surfside in each nostril twice daily. CETIRIZINE HCL [...] 20 tablet; Refill: 0 Parish Avalos APRN.INDRA [facility] 08-09-2023 Instructions Parish Avalos APRN.INDRA - 08/09/2023 1:43 PM EDT Images from the original note were not included. 08/09/2023 To Whom It May Concern, Nancy Pickard has been evaluated at the [facility] for concussion. A concussion is typically a [...] under the supervision of a medical professional. [place] has laws requiring youth athletes to complete a progressive return to sports activity progression prior to returning to competition. Please refer to your [facility] department of health rules and laws [...] the recovery plan. You may also visit [email or web address] for more information. Sincerely, Parish Avalos APRN.BINITROTOLUENE OPERATOR Frequently Asked Questions about Concussion What is [...] imaging with a CT or MRI. All [facility] states have laws to protect youth/student athletes [...] or to make an appointment, go to [email or web address] ion or call [phone] ([phone]). What does concussion treatment/management involve? Most patients [...] or to make an appointment, go to [email or web address] ion or call [phone] ([phone]). I can t seem to focus or [...] or to make an appointment, go to [email or web address] ion or call [phone] ([phone]). 1 How to Manage Concussion Symptoms The [...] or to make an appointment, go to [email or web address] ion or call [phone] ([phone]). 1 NECK PAIN: TIPS FOR MANAGEMENT Discomfort [...] or to make an appointment, go to [email or web address] ion or call [phone] ([phone]). documented in this encounter [facility] 08-09-2023 History of Presen t illness Narrative Images from the original note were not included. This note was created using [employer]. Subjective Nancy Pickard is a 28 year [...] with no problems, but not since before [facility]. Saw ENT on 07/21 and everything was [...] RELIEF) 50 mcg/actuation nasal spray Use 1 Surfside in each nostril twice daily. CETIRIZINE HCL [...] Dispense: 20 tablet; Refill: 0 Parish Avalos APRN.BINITROTOLUENE OPERATOR documented in this encounter [facility] 07-12-2023 Note HNO ID: [id number] Author: Jonah Saunders PT Service: ? 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 [...] Custom biomechanical foot orthotics with serial number: #[id number] were issued to patient and proof of receipt form signed by pt and therapist. All specifications for custom foot orthotics can be found in orthotic evaluation visit note. Planned Interventions: Follow up as needed for brace fitting/issues. 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 [...] Custom biomechanical foot orthotics with serial number: #[id number] were issued to patient and proof of receipt form signed by pt and therapist. All specifications for custom foot orthotics can be found in orthotic evaluation visit note. Planned Interventions: Follow up as needed for brace fitting/issues. Billing:[facility]: Equipment: [id number] x1 repair/refurbishment of custom foot orthotics No charge for time Total time: 9 minutes Jonah Saunders PT documented in this encounter [facility] 06-20-2023 Note HNO ID: [id number] Author: Jonah Saunders PT Service: ? Author [...] 15 minutes Orthotic/Prosthetic Adjustment and Training (Subsequent) (76350): 1:1 time: 15 minutes (1 unit: 8-22 mins) [facility] 06-20-2023 History of Presen t illness [...] 15 minutes Orthotic/Prosthetic Adjustment and Training (Subsequent) (55317): 1:1 time: 15 minutes (1 unit: 8-22 mins) documented in this encounter [facility] 04-07-2023 Note HNO ID: [id number] Author: Shahnaz Mosqueda APRN.BINITROTOLUENE OPERATOR Service: ? Author Type: Nurse Practitioner Type: Progress Notes Filed: 04/07/2023 1:47 PM Note Text: VIRTUAL VISIT PROGRESS NOTE This is a virtual visit using [employer] video visit. It required patient-provider interaction for the medical decision making as documented below. I have communicated my name and active licensure. The patient's identity and physical location were verified at the time of this visit. Either the patient or their legal sales support representative has been informed of the risks [...] RELIEF) 50 mcg/actuation nasal spray Use 1 Surfside in each nostril twice daily. CETIRIZINE HCL [...] on file for this visit. Shahnaz Mosqueda APRN.BINITROTOLUENE OPERATOR [facility] 04-28-2022 Miscellaneous Notes Received imaging from [facility]. Placed in provider's inbox for review. Route to MA scanning. documented in this encounter [facility] 08-20-2021 History of Presen t illness Narrative [...] any new issues. documented in this encounter [facility] 05-19-2021 History of Presen t illness [...] of maximum improvement documented in this encounter [facility] documented as of this encounter (statuses as of 04/28/2022) [facility] History of Past illness Narrative* Problem Noted Date Diagnosed Date Resolved Date Epigastric pain 01/29/2019 03/26/2019 Nausea 01/29/2019 03/26/2019 documented as of this encounter (statuses as of 06/20/2023) [place] [address]-12-2019 History of Past illness Narrative* Problem Noted Date Diagnosed Date Resolved Date Epigastric pain 01/29/2019 03/26/2019 Nausea 01/29/2019 03/26/2019 documented as of this encounter (statuses as of 07/12/2023) [address] History of Past illness Narrative* Problem Noted Date Diagnosed Date Resolved Date Epigastric pain 01/29/2019 03/26/2019 Nausea 01/29/2019 03/26/2019 documented as of this encounter (statuses as of 08/09/2023) [address] History of Past illness Narrative* Problem Noted Date Diagnosed Date Resolved Date Epigastric pain 01/29/2019 03/26/2019 Nausea 01/29/2019 03/26/2019 documented as of this encounter (statuses as of 08/26/2023) [address] History of Past illness Narrative* Problem Noted Date Diagnosed Date Resolved Date Epigastric pain 01/29/2019 03/26/2019 Nausea 01/29/2019 03/26/2019 documented as of this encounter (statuses as of 08/28/2023) [address] History of Past illness Narrative* Problem Noted Date Diagnosed Date Resolved Date Epigastric pain 01/29/2019 03/26/2019 Nausea 01/29/2019 03/26/2019 documented as of this encounter (statuses as of 09/01/2023) [address] History of Past illness Narrative* Problem Noted Date Diagnosed Date Resolved Date Epigastric pain 01/29/2019 03/26/2019 Nausea 01/29/2019 03/26/2019 documented as of this encounter (statuses as of 09/05/2023) [address]2019 History of Past illness Narrative* Problem Noted Date Diagnosed Date Resolved Date Epigastric pain 01/29/2019 03/26/2019 Nausea 01/29/2019 03/26/2019 documented as of this encounter (statuses as of 09/06/2023) [address] History of Past illness Narrative* Problem Noted Date Diagnosed Date Resolved Date Epigastric pain 01/29/2019 03/26/2019 Nausea 01/29/2019 03/26/2019 documented as of this encounter (statuses as of 09/08/2023) [address] History of Past illness Narrative* Problem Noted Date Diagnosed Date Resolved Date Epigastric pain 01/29/2019 03/26/2019 Nausea 01/29/2019 03/26/2019 documented as of this encounter (statuses as of 09/12/2023) [address] History of Past illness Narrative* Problem Noted Date Diagnosed Date Resolved Date Epigastric pain 01/29/2019 03/26/2019 Nausea 01/29/2019 03/26/2019 documented as of this encounter (statuses as of 09/15/2023) [address] History of Past illness Narrative* Problem Noted Date Diagnosed Date Resolved Date Epigastric pain 01/29/2019 03/26/2019 Nausea 01/29/2019 03/26/2019 documented as of this encounter (statuses as of 09/19/2023) [address] History of Past illness Narrative* Problem Noted Date Diagnosed Date Resolved Date Epigastric pain 01/29/2019 03/26/2019 Nausea 01/29/2019 03/26/2019 documented as of this encounter (statuses as of 09/28/2023) [address] History of Past illness Narrative* Problem Noted Date Diagnosed Date Resolved Date Epigastric pain 01/29/2019 03/26/2019 Nausea 01/29/2019 03/26/2019 documented as of this encounter (statuses as of 10/09/2023) [address] History of Past illness Narrative* Problem Noted Date Diagnosed Date Resolved Date Epigastric pain 01/29/2019 03/26/2019 Nausea 01/29/2019 03/26/2019 documented as of this encounter (statuses as of 10/09/2023) [address] History of Past illness Narrative* Problem Noted Date Diagnosed Date Resolved Date Epigastric pain 01/29/2019 03/26/2019 Nausea 01/29/2019 03/26/2019 documented as of this encounter (statuses as of 10/19/2023) [facility] Diagnosis Contusion of left foot, initial encounter Rupture of left Achilles tendon, initial encounter [facility] Diagnosis Asthma, unspecified asthma severity, unspecified whether complicated, unspecified whether persistent Contusion of left foot, initial encounter Strain of Achilles tendon, left, initial encounter Achilles tendinitis, unspecified laterality Postcalcaneal bursitis, unspecified laterality documented in this encounter [facility] note* Diagnosis Rupture of left Achilles tendon, initial encounter- Primary documented in this encounter [facility] note* Diagnosis Rupture of left Achilles tendon, initial encounter- Primary documented in this encounter [facility] note* Diagnosis Pes planus of both feet- Primary Chronic pain of left ankle Posterior tibial tendon dysfunction Other disorders of synovium, tendon, and bursa documented in this encounter [facility] note* Diagnosis Weakness of face muscles- Primary Facial weakness Decreased sensation Disturbance of skin sensation Cervicalgia Neck stiffness Torticollis, unspecified documented in this encounter [facility] note* Diagnosis Cervicalgia- Primary documented in this encounter [facility] note* Diagnosis Cervicalgia- Primary documented in this encounter [facility] note* Diagnosis Cervicalgia- Primary documented in this encounter [facility] note* Diagnosis Cervicalgia- Primary documented in this encounter [facility] note* Diagnosis Cervicalgia- Primary documented in this encounter [facility] note* Diagnosis Cervicalgia- Primary documented in this encounter [facility] note* Diagnosis Cervicalgia- Primary documented in this encounter [facility] note* Diagnosis Deflected nasal septum- Primary Deviated nasal septum Breathing difficult Other dyspnea and respiratory abnormality 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 documented in this encounter [facility] note* Diagnosis URI, acute Acute upper respiratory infections of unspecified site documented in this encounter [facility] note* Diagnosis Acute non-recurrent maxillary sinusitis- Primary documented in this encounter [facility] Work Phone: Summary Purpose Family History [...] FoundDocuments on File Type Date Recorded Patient Reweaver Expl anation Advance Directives and Livin g Will 03/24/2021 8:10 AM Documents on File Type Date Recorded Patient Reweaver Expl anation Advance Directives and Livin g Will 03/24/2021 8:10 AM Documents on File Type Date Recorded Patient Reweaver Expl anation Advance Directive(s) 01/31/2019 9:40 AM Reason for Referral Status Reason Specialty Diagnoses / Procedures Referre d By Contact Referred To Contact Closed Radiology Diagnoses Contusion of left foot, initial encounter Rupture of left Achilles tendon, initial encounter Procedures MR Ankle Left Without Contrast Simón Mckeon Jr., DPM [address] [place] [address] Specialty Diagnoses / Procedures Referred By Contac t Referred To Contact [facility] INS Diagnoses Cervicalgia Procedures CONSULT TO PHYSICAL THERAPY PHYSICAL THERAPY EVALUATION HIGH COMPLEX 45 MINS Parish Avalos APRN.BINITROTOLUENE OPERATOR [address] [place] [address] [facility] [place] [address] [place] [address] Referral ID Status Reason Start Date Expiration Date V isits Requested Visits Authorized [id number] Closed Auto-Generate d Referral 08/09/2023 08/08/2024 1 1 Specialty Diagnoses / Procedures Referred By Contac t Referred To Contact Neurology Diagnoses Weakness of face muscles Decreased sensation Procedures CONSULT TO NEUROLOGY OFFICE/OUTPATIENT [facility] MDM 60-74 MINUTES Parish Avalos, CHORAL DIRECTOR.BINITROTOLUENE OPERATOR [address] [place] [address] Referral ID Status Reason Start Date Expiration Date Visits Requested Visits Authorized [id number] Authorized PCP Requested Referral 08/09/2023 08/08/2024 1 1 Specialty Diagnoses / Procedures Referred By Contac t Referred To Contact CT IMAGING Diagnoses Deflected nasal septum Procedures CT FACIAL BONE/MEET WO IVCON CT MAXILLOFACIAL W/O CONTRAST MATERIAL Partha Bush MD [address] [place] [address] Ct Imaging [facility] Referral ID Status Reason Start Date Expiration Date Visits Requested Visits Authorized [id number] Pending Review Auto-Generat ed Referral 11/07/2024 1 1 Additional Source Comments INFORMATION SOURCE (unrecogn ized section and content) DATE CREATED AUTHOR AUTHOR'S ORGANIZ ATION 10/03/2018 [facility] DATE CREATED AUTHOR AUTHOR'S ORGANIZ ATION [facility] DATE CREATED AUTHOR AUTHOR'S ORGANIZ ATION 03/22/2019 [facility] DATE CREATED AUTHOR AUTHOR'S ORGANIZ ATION 07/06/2021 [facility] DATE CREATED AUTHOR AUTHOR'S ORGANIZ ATION 08/15/2021 [facility] DATE CREATED AUTHOR AUTHOR'S ORGANIZ ATION 08/21/2021 [facility] DATE CREATED AUTHOR AUTHOR'S ORGANIZ ATION 07/18/2023 [facility] DATE CREATED AUTHOR AUTHOR'S ORGANIZ ATION 10/08/2023 [facility] DATE CREATED AUTHOR AUTHOR'S ORGANIZ ATION 10/26/2023 [facility] DATE CREATED AUTHOR AUTHOR'S ORGANIZ ATION 12/08/2023 [facility] Reason for Visit (unrecogniz ed section and content) Specialty Diagnoses / Procedures Referred By Contac t Referred To Contact Physical Therapy / PHYSICAL THERAPY Diagnoses needs a new pair Procedures EST RS PT ORTHOTIC Self Jonah Saunders, PT [address] [place] [address] Referral ID Status Reason Start Date Expiration Date V isits Requested Visits Authorized [id number] Authorized 11/20/2022 11/19/2023 20 20 Reason Comments PT Progress Note Status Reason Specialty Diagnoses / Procedures Referre d By Contact Referred To Contact Closed Radiology Diagnoses Contusion of left foot, initial encounter Rupture of left Achilles tendon, initial encounter Procedures MR Ankle Left Without Contrast Simón Mckeon Jr., DPM [address] [place] [address] Reason Comments Tendonitis FU left foot. Reason [...] Care Teams (unrecognized sec tion and content) Parking Patroller Relationship Specialty Start Date End Date Olga Peterson MD [address] [place] [address] PCP - General Family Practice 11/25/14 Parking Patroller Relationship Specialty Start Date End Date Olga Peterson MD [address] [place] [address] PCP - General Family Medicine 11/25/14 Parking Patroller Relationship Specialty Start Date End Date Olga Peterson MD [address] [place] [address] PCP - General Family Medicine 11/25/14 Parking Patroller Relationship Specialty Start Date End Date Olga Peterson MD [address] [place] [address] PCP - General Family Medicine 11/25/14 Parking Patroller Relationship Specialty Start Date End Date Olga Peterson MD [address] [place] [address] PCP - General Family Medicine 11/25/14 Parking Patroller Relationship Specialty Start Date End Date Olga Peterson MD [address] [place] [address] PCP - General Family Medicine 11/25/14 Parking Patroller Relationship Specialty Start Date End Date Olga Peterson MD [address] [place], [place] [address] PCP - General Family Medicine 11/25/14 Parking Patroller Relationship Specialty Start Date End Date Olga Peterson MD [address] [place], [place] [address] PCP - General Family Medicine 11/25/14 Parking Patroller Relationship Specialty Start Date End Date Olga Peterson MD [address] [place] [address] PCP - General Family Medicine 11/25/14 Parking Patroller Relationship Specialty Start Date End Date Olga Peterson MD [address] [place] [address] PCP - General Family Medicine 11/25/14 Parking Patroller Relationship Specialty Start Date End Date Olga Peterson MD [address] [place] [address] PCP - General Family Medicine 11/25/14 Parking Patroller Relationship Specialty Start [place] [address] [place] [address] PCP - General Family Medicine 11/25/14 Parking Patroller Relationship Specialty Start Date End Date Olga Peterson MD [address] [place] [address] PCP - General Family Medicine 11/25/14 Parking Patroller Relationship Specialty Start Date End Date Olga Peterson MD [address] [facility] [place] [address] PCP - General 01/09/21 Source Comments (unrecognize d section and content) In the event this informatio n is protected by the Federal Confidentiality of Alcohol and Drug Abuse Patient Records regulations: The Federal rules restrict any use of the information to criminally investigate or prosecute any alcohol or drug abuse patient.[facility] [facility]In the event this information is protected by the Federal Confidentiality of Alcohol and Drug Abuse Patient Records regulations: The Federal rules restrict any use of the information to criminally investigate or prosecute any alcohol or drug abuse patient.[facility] the event this information is protected by the Federal Confidentiality of Alcohol and Drug Abuse Patient Records regulations: The Federal rules restrict any use of the information to criminally investigate or prosecute any alcohol or drug abuse patient.[facility]In the event this information is protected by the Federal Confidentiality of Alcohol and Drug Abuse Patient Records regulations: The Federal rules restrict any use of the information to criminally investigate or prosecute any alcohol or drug abuse patient.[facility]In the event this information is protected by the Federal Confidentiality of Alcohol and Drug Abuse Patient Records regulations: The Federal rules restrict any use of the information to criminally investigate or prosecute any alcohol or drug abuse patient.[facility] HospitalIn the event this information is protected by the Federal Confidentiality of Alcohol and Drug Abuse Patient Records regulations: The Federal rules restrict any use of the information to criminally investigate or prosecute any alcohol or drug abuse patient.[facility]In the event this information is protected by the Federal Confidentiality of Alcohol and Drug Abuse Patient Records regulations: The Federal rules restrict any use of the information to criminally investigate or prosecute any alcohol or drug abuse patient.[facility]In the event this information is protected by the Federal Confidentiality of Alcohol and Drug Abuse Patient Records regulations: The Federal rules restrict any use of the information to criminally investigate or prosecute any alcohol or drug abuse patient.[facility]In the event this information is protected by the Federal Confidentiality of Alcohol and Drug Abuse Patient Records regulations: The Federal rules restrict any use of the information to criminally investigate or prosecute any alcohol or drug abuse patient.[facility] HospitalIn the event this information is protected by the Federal Confidentiality of Alcohol and Drug Abuse Patient Records regulations: The Federal rules restrict any use of the information to criminally investigate or prosecute any alcohol or drug abuse patient.[facility]In the event this information is protected by the Federal Confidentiality of Alcohol and Drug Abuse Patient Records regulations: The Federal rules restrict any use of the information to criminally investigate or prosecute any alcohol or drug abuse patient.[facility]In the event this information is protected by the Federal Confidentiality of Alcohol and Drug Abuse Patient Records regulations: The Federal rules restrict any use of the information to criminally investigate or prosecute any alcohol or drug abuse patient.[facility] HospitalIn the event this information is protected by the Federal Confidentiality of Alcohol and Drug Abuse Patient Records regulations: The Federal rules restrict any use of the information to criminally investigate or prosecute any alcohol or drug abuse patient.[facility]In the event this information is protected by the Federal Confidentiality of Alcohol and Drug Abuse Patient Records regulations: The Federal rules restrict any use of the information to criminally investigate or prosecute any alcohol or drug abuse patient.[facility] HospitalIn the event this information is protected by the Federal Confidentiality of Alcohol and Drug Abuse Patient Records regulations: The Federal rules restrict any use of the information to criminally investigate or prosecute any alcohol or drug abuse patient.[facility] HospitalIn the event this information is protected by the Federal Confidentiality of Alcohol and Drug Abuse Patient Records regulations: The Federal rules restrict any use of the information to criminally investigate or prosecute any alcohol or drug abuse patient.[facility] HospitalIn the event this information is protected by the Federal Confidentiality of Alcohol and Drug Abuse Patient Records regulations: The Federal rules restrict any use of the information to criminally investigate or prosecute any alcohol or drug abuse patient.[facility] HospitalIn the event this information is protected by the Federal Confidentiality of Alcohol and Drug Abuse Patient Records regulations: The Federal rules restrict any use of the information to criminally investigate or prosecute any alcohol or drug abuse patient.[facility] FOR RECORDS PERTAINING TO PATIENTS WHO ARE [...] BE BASED ON THE PRIMARY CLINICAL RECORDS. [facility]. provides no warranty or guarantee of the accuracy or completeness of information in this document.
[2023-12-25 22:07] LABS: Chlamydia By Nucleic Acid AMP Negative (Negative); Gonococcus By Nucleic Acid AMP Negative (Negative)
[2023-12-28 14:09] LABS: HPV APTIMA, High Risk Negative (Negative)
== END | disposition home or self-care (01) ==
LOC: LABSPEC 16:49
PROVIDERS: PCP Family Medicine; Referring Provider Obstetrics & Gynecology; Visit Provider Obstetrics & Gynecology
DX: Z34.90 Encounter for supervision of normal pregnancy, unspecified, unspecified trimester (principal); Z3A.00 Weeks of gestation of pregnancy not specified
CPT/HCPCS: 87086; 87491; 87591; 87624; 88175; G0145

== ENCOUNTER → 2024-03-19 | Outpatient (CLI) | payer BC, SELFPAY ==
[2024-03-19 14:13] LABS: Absolute Lymphocyte Count 1.66 X10^3/uL (0.83-4.51); Absolute Neutrophil Count 9.2 X10^3/uL (2.0-7.7); Basophil# 0.05 X10^3/uL; Basophil% 0.4 % (0-1); Eosinophil# 0.05 X10^3/uL; Eosinophils% 0.4 % (0-5); Hematocrit 32.4 % (37-47); Hemoglobin 11.1 g/dL (12.0-15.0); Lymphocyte # 1.66 X10^3/ul (0.83-4.51); Lymphocyte % 14.2 % (19-41); Mean Corp Hgb Conc 34.3 g/dL (32-36); Mean Corpuscular Hgb 30.8 pg (27.0-32.0); Mean Platelet Vol. 10.9 fl (6.2-12.0); Monocyte# 0.68 X10^3/uL; Monocyte% 5.8 % (0-10); NRBC Flagged by Analyzer 0 % (0-5); Neutrophil # 9.21 X10^3/uL (2.7-7.7); Neutrophil % 78.6 % (47-70); Platelet Count 184 K/mm3 (150-450); RBC Distribution Width CV 13.3 % (11.6-14.6); RBC Distribution Width SD 43.7 fl (35.1-43.9); White Blood Count 11.7 K/mm3 (4.4-11.0)
[2024-03-19 15:15] LABS: HIV - WCH Non-Reactive (Nonreactive); Hepatitis B Surface Antigen Non-Reactive (Nonreactive); Hepatitis C Antibody Non-Reactive (Nonreactive); Rubella IgG Reactive (Nonreactive); Syphilis Antibodies Non-reactive
== END | disposition home or self-care (01) ==
LOC: PAVLAB 14:00
PROVIDERS: Obstetrics & Gynecology; PCP Family Medicine; Referring Provider Nurse Practitioner Women's Health; Visit Provider Nurse Practitioner Women's Health
DX: Z34.90 Encounter for supervision of normal pregnancy, unspecified, unspecified trimester (principal); Z3A.00 Weeks of gestation of pregnancy not specified
CPT/HCPCS: 36415; 85025; 86703; 86762; 86780; 86803; 86850; 86900; 86901; 87340

== ENCOUNTER → 2024-04-16 | Outpatient (CLI) | payer BC, SELFPAY ==
[2024-04-16 11:53] LABS: Glucose Challenge Gest 1H 50g 128 mg/dL (70-140)
[2024-04-17 11:33] LABS: Absolute Lymphocyte Count 1.58 X10^3/uL (0.83-4.51); Absolute Neutrophil Count 7.7 X10^3/uL (2.0-7.7); Basophil# 0.06 X10^3/uL; Basophil% 0.6 % (0-1); Eosinophil# 0.04 X10^3/uL; Eosinophils% 0.4 % (0-5); Hematocrit 31.1 % (37-47); Hemoglobin 10.4 g/dL (12.0-15.0); Lymphocyte # 1.58 X10^3/ul (0.83-4.51); Lymphocyte % 15.4 % (19-41); Mean Corp Hgb Conc 33.4 g/dL (32-36); Mean Corpuscular Hgb 31.5 pg (27.0-32.0); Mean Corpuscular Volume 94.2 fL (81-99); Mean Platelet Vol. 12.1 fl (6.2-12.0); Monocyte# 0.76 X10^3/uL; Monocyte% 7.4 % (0-10); NRBC Flagged by Analyzer 0 % (0-5); Neutrophil # 7.69 X10^3/uL (2.7-7.7); Neutrophil % 75.2 % (47-70); Platelet Count 184 K/mm3 (150-450); RBC Distribution Width CV 13.1 % (11.6-14.6); RBC Distribution Width SD 44.8 fl (35.1-43.9); White Blood Count 10.2 K/mm3 (4.4-11.0)
[2024-04-17 17:30] LABS: HIV - WCH Non-Reactive (Nonreactive); Syphilis Antibodies Non-reactive
== END | disposition home or self-care (01) ==
LOC: PAVLAB 10:39
PROVIDERS: PCP Family Medicine; Referring Provider Nurse Practitioner Women's Health; Visit Provider Nurse Practitioner Women's Health
DX: Z13.1 Encounter for screening for diabetes mellitus (principal)
CPT/HCPCS: 36415; 82950; 85025; 86703; 86780

== ENCOUNTER → 2024-05-27 | Outpatient (CLI) | payer BC, SELFPAY ==
[2024-05-27 10:55] LABS: Absolute Lymphocyte Count 1.87 X10^3/uL (0.83-4.51); Absolute Neutrophil Count 8.3 X10^3/uL (2.0-7.7); Basophil# 0.05 X10^3/uL; Basophil% 0.4 % (0-1); Eosinophils% 0.9 % (0-5); Hematocrit 32.5 % (37-47); Lymphocyte # 1.87 X10^3/ul (0.83-4.51); Lymphocyte % 16.5 % (19-41); Mean Corp Hgb Conc 33.8 g/dL (32-36); Mean Corpuscular Hgb 31.9 pg (27.0-32.0); Mean Corpuscular Volume 94.2 fL (81-99); Mean Platelet Vol. 10.9 fl (6.2-12.0); Monocyte# 0.83 X10^3/uL; Monocyte% 7.3 % (0-10); NRBC Flagged by Analyzer 0 % (0-5); Neutrophil # 8.32 X10^3/uL (2.7-7.7); Neutrophil % 73.3 % (47-70); Platelet Count 174 K/mm3 (150-450); RBC Distribution Width CV 13.2 % (11.6-14.6); RBC Distribution Width SD 45.1 fl (35.1-43.9); Red Blood Count 3.45 M/mm3 (4.2-5.4); White Blood Count 11.4 K/mm3 (4.4-11.0)
== END | disposition home or self-care (01) ==
LOC: PAVLAB 10:37
PROVIDERS: PCP Family Medicine; Referring Provider Advanced Practice Midwife; Visit Provider Advanced Practice Midwife
DX: O99.012 Anemia complicating pregnancy, second trimester (principal); O09.92 Supervision of high risk pregnancy, unspecified, second trimester; Z3A.00 Weeks of gestation of pregnancy not specified
CPT/HCPCS: 36415; 85025

== ENCOUNTER → 2024-07-02 | Outpatient (CLI) | payer BC, SELFPAY ==
[2024-07-02 11:39] LABS: ROM Internal Control Test YES-OK TO RESULT pt. (Internal QC); ROM Patient Test Negative (Negative); Record Kit Lot#, ROM+ K1866
== END | disposition home or self-care (01) ==
PROVIDERS: PCP Family Medicine; Referring Provider Obstetrics & Gynecology; Visit Provider Obstetrics & Gynecology
DX: O09.93 Supervision of high risk pregnancy, unspecified, third trimester (principal); O26.899 Other specified pregnancy related conditions, unspecified trimester; N89.8 Other specified noninflammatory disorders of vagina; O99.891 Other specified diseases and conditions complicating pregnancy; Z3A.00 Weeks of gestation of pregnancy not specified; N90.89 Other specified noninflammatory disorders of vulva and perineum; Z20.2 Contact with and (suspected) exposure to infections with a predominantly sexual mode of transmission
CPT/HCPCS: 36415; 84112; 86695; 86696; 87081; 87255

== ENCOUNTER 2024-07-24 05:08 | Inpatient (IN) | payer BC, SELFPAY ==
[2024-07-24] VITALS (21 sets, daily range): BP systolic 106–131; BP diastolic 58–87; PULSE 64–91; RESP 15–21; TEMP 35.4–36.8; O2SAT 96–100; BMI 23.8
[2024-07-24] MEDS: Lactated Ringers 1,000 ML 999 ML IV (05:15)
[2024-07-24 05:51] LABS: Absolute Lymphocyte Count 1.98 X10^3/uL (0.83-4.51); Absolute Neutrophil Count 7.8 X10^3/uL (2.0-7.7); Basophil# 0.06 X10^3/uL; Basophil% 0.6 % (0-1); Eosinophil# 0.12 X10^3/uL; Eosinophils% 1.1 % (0-5); Hematocrit 34.3 % (37-47); Hemoglobin 11.8 g/dL (12.0-15.0); Lymphocyte # 1.98 X10^3/ul (0.83-4.51); Lymphocyte % 18.5 % (19-41); Mean Corp Hgb Conc 34.4 g/dL (32-36); Mean Corpuscular Hgb 32.4 pg (27.0-32.0); Mean Corpuscular Volume 94.2 fL (81-99); Mean Platelet Vol. 11.5 fl (6.2-12.0); Monocyte# 0.63 X10^3/uL; Monocyte% 5.9 % (0-10); NRBC Flagged by Analyzer 0 % (0-5); Neutrophil # 7.77 X10^3/uL (2.7-7.7); Neutrophil % 72.7 % (47-70); Platelet Count 166 K/mm3 (150-450); RBC Distribution Width CV 13.2 % (11.6-14.6); RBC Distribution Width SD 44.7 fl (35.1-43.9); Red Blood Count 3.64 M/mm3 (4.2-5.4); White Blood Count 10.7 K/mm3 (4.4-11.0)
[2024-07-24] MEDS: Lactated Ringers 1,000 ML 150 ML IV (06:16)
[2024-07-24] MEDS: Acetaminophen 500 MG Tablet 1000 MG PO ×3 (06:25→18:13)
[2024-07-24] MEDS: Sodium Citrate/Citric Acid 30 ML UDC PO (06:25)
[2024-07-24] MEDS: Cefazolin 2 GM in 0.9% Normal Saline (100mL Bag) 100 ML IV (07:20)
[2024-07-24 08:03] LABS: Syphilis Antibodies Non-reactive
[2024-07-24] MEDS: Lactated Ringers 1,000 ML 100 ML IV (09:00)
[2024-07-24] MEDS: Oxytocin 15 Units/NS 250ml 15 UNITS/250 ML IV.SOLN 83 UNITS IV (09:00)
[2024-07-24] MEDS: Ketorolac 30 MG/ML Syringe IV ×3 (09:40→21:16)
[2024-07-24] MEDS: Ondansetron 4 MG/2 ML Vial IV (11:20)
--- NOTE | 2024-07-24 11:36 | HP.PCM.OB_ITS ---
HPI - General General Date of Admission: 07/24/24 HPI Narrative NANCY LUNA, is a 29 F who presents for primary cesaren due to herpetic infection on the right labia two weeks ago. she denies any active lesions at present and took a course of valtrex. Maternal Data Information HERIBERTO Calculator Estimated Delivery Date Method Current WG Current Estimate 07/27/24 LMP (Certain) 39w 4d Other Estimates 07/28/24 Ultrasound #1 39w 3d 07/25/24 Ultrasound #2 39w 6d PFSH PFSH Medical History (Updated 07/24/24 @ 05:25 by Shasha Navarro) Genital herpes affecting Hx of Lyme disease In vitro fertilization Seasonal allergies Chemical Dysmenorrhea Pelvic pain LIN I (cervical intraepithelial neoplasia I) History of colposcopy Home Medications ?Medication ?Instructions ?Recorded ?Last Taken ?Type albuterol sulfate 90 mcg/actuation 1 puff inhalation Q6H PRN Wheezing 01/01/19 Unknown History aerosol inhaler (ProAir HFA) cetirizine 10 mg capsule (Zyrtec) 10 mg PO DAILY PRN allergy symptoms 02/15/22 Unknown History menthol 5 % topical gel (Biofreeze ea topical muscle aches 12/19/23 Unknown History (menthol)) multivitamin no.47-iron fum 27 1 cap PO DAILY 12/19/23 Unknown History mg-folate no.1 1 mg-dha 300 mg capsule (PNV-DHA) ondansetron 4 mg disintegrating 4 mg PO Q4H PRN nausea and 12/22/23 Unknown Rx tablet vomiting #60 tabs breast pump #1 ea 05/03/24 Unknown Rx valacyclovir 1 gram tablet 1,000 mg PO BID HSV 10 days #20 07/04/24 Unknown Rx (Valtrex) tabs Allergy/AdvReac Type Severity Reaction Status Date / Time clarithromycin (From Biaxin) Allergy Mild rash Verified 07/24/24 05:09 latex Allergy Mild hives Verified 07/24/24 05:09 Family History Mother Hypertension Diabetes Grandmother Diabetes Cancer uterine Grandfather Diabetes Heart disease Hypertension Surgical History H/O breast biopsy H/O esophagogastroduodenoscopy Status post tonsillectomy and adenoidectomy Social History adopted: No household members: spouse and adopted family number of children: 2 current occupational status: employed current occupation: [employer] current occupational exposures/hazards: No pets and animals: Yes (avoid litterbox) pets and animals: cat(s), dog(s), fish and other details: snails and salamander tanks history of recent travel: Yes (- November) out of state: Yes out of country: No sexually active: Yes Smoking Status: Never smoker alcohol intake: never substance use type: does not use well-balanced diet: daily or most days caffeine: No eating out: 1-3 times/week during the past year weight has: remained stable what type of physical activity do you participate in: walking frequency: 1-2 times per week duration: 45-60 minutes/day shira/protestant: Anabaptism seatbelt use: always do you feel safe at home: Yes additional 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 Date Name GA/Weeks Outcome Route Bth Weight Gen Labor Lgth Anesthesia Del Locatn Provider FOB Unknown Unknown 06/2021 chemical Delivery Date: Last Updated by: Savanna Harris 2 Adopted children- Fredo Reis Visit Details Expected Delivery Route/Plan Labor Preferences- CB/BF classes: scheduled labor support person: Adilson labor intervention preferences: [] pain management options preferred: unmedicated if possible cut cord/dad catch: cord/maybe : yes PP control planned: discussed discussed possible routes of delivery and associated risks: [] special requests: [] Plans Covid status: [] Flu vaccine: [] Tdap vaccine: given Rhogam: NA LARC form signed: yes Problem list reviewed and updated with the most current plan of care details and appropriate orders placed. Relevant counseling for the gestational age provided. Continue routine care and follow up unless otherwise noted in visit notes/problem list details OB Flowsheet Initial Weight: Not Recorded Date -?-?-?-?-?-?-?-?-?-?-?-?- EGA Weight BP Urine Prot -?-?-?-?-?-?-?-?-?-?-?-?- Glucose FHR FuHt Pres Dilation -?-?-?-?-?-?-?-?-?-?-?-?- Effaced St Visit Note 12/22/23 -?-?-?-?-?-?-?-?-?-?-?-?- 8w 6d 121 lb 115/74 -?-?-?-?-?-?-?-?-?-?-?-?- 160 -?-?-?-?-?-?-?-?-?-?-?-?- JV- CRL consiste nt with LMP. unsure about NIPT. 01/24/24 -?-?-?-?-?-?-?-?-?-?-?-?- 13w 4d 120 lb 8 oz 128/83 Nega tive -?-?-?-?-?-?-?-?-?-?-?-?- Negative 168 -?-?-?-?-?-?-?-?-?-?-?-?- JV- CRL consiste nt with established GA. no complaints today. decided against NIPT. feeling overall well. 02/20/24 -?-?-?-?-?-?-?-?-?-?-?-?- 17w 3d 124 lb 6 oz 118/76 Nega tive -?-?-?-?-?-?-?-?-?-?-?-?- Negative 150 -?-?-?-?-?-?-?-?-?-?-?-?- kw-no vb/crampin g Anatomy US on 03/07. 03/19/24 -?-?-?-?-?-?-?-?-?-?-?-?- 21w 3d 129 lb 8 oz 120/75 Nega tive -?-?-?-?-?-?-?-?-?-?-?-?- Negative 148 -?-?-?-?-?-?-?-?-?-?-?-?- MH-No VB, LOF. G ood FM. Nl anatomy. Will get PN labs today 04/17/24 -?-?-?-?-?-?-?-?-?-?-?-?- 25w 4d 135 lb 6 oz 115/76 Nega tive -?-?-?-?-?-?-?-?-?-?-?-?- Negative 147 24 -?-?-?-?-?-?-?-?-?-?-?-?- JV- glucose was normal but the other labs were not reported even though 5 tubes of blood were drawn. asking lab about what happened to the rest of the lab. if not reported by next visit. will need to get drawn again. 05/03/24 -?-?-?-?-?-?-?-?-?-?-?-?- 27w 6d 138 lb 6 oz 121/76 Nega tive -?-?-?-?-?-?-?-?-?-?-?-?- Negative 141 28 -?-?-?-?-?-?-?-?-?-?-?-?- JV- no lof, vagi nal bleeding, or dec fm JV- no lof, vaginal bleeding , or dec fm. doing the framing in her house for her addition and got dizzy and almost fainted. recommend to drink lots of water and discontinue this activity if occurs again. 05/13/24 -?-?-?-?-?-?-?-?-?-?-?-?- 29w 2d 142 lb 116/74 Negative -?-?-?-?-?-?-?-?-?-?-?-?- Negative 146 29 -?-?-?-?-?-?-?-?-?-?-?--?- MH-NO VB, LOF. G ood FM. tdap, larc. 05/27/24 -?-?-?-?-?-?-?-?-?-?-?-?- 31w 2d 143 lb 125/79 Trace -?-?-?-?-?-?-?-?-?-?-?-?- Negative 130 31 -?-?-?-?-?-?-?-?-?-?-?-?- KW- no vb/lof/ct x. good fm. 06/10/24 -?-?-?-?-?-?-?-?-?-?-?-?- 33w 2d 145 lb 8 oz 114/72 Nega tive -?-?-?-?-?-?-?-?-?-?-?-?- Negative 127 32 -?-?-?-?-?-?-?-?-?-?-?-?- MH-No VB, LOF. G ood FM. MH-No VB, LOF. Good FM. Lind s had 2 brief episodes of vision changes without any headache. Lasts <40 min. Took BP and normal. Enc to call with recurrence. 06/27/24 -?-?-?-?-?-?-?-?-?-?-?-?- 35w 5d 147 lb 9 oz 126/79 Nega tive -?-?-?-?-?-?-?-?-?-?-?-?- Negative 135 35 -?-?-?-?-?-?-?-?-?-?-?-?- KW- no vb/lof/ct x. good fm. GBS next visit. 07/02/24 -?-?-?-?-?-?-?-?-?-?-?-?- 36w 3d 148 lb 124/76 -?-?-?-?-?-?-?-?-?-?-?-?- 130 36 -?-?-?-?-?-?-?-?-?-?-?-?- Sm- no vb lof co increased discharge. no regualr ctx, co vulvar irritation and right lesion, has been tested for herpes in the past and was negative but never had blood testing, does have history of oral herpes. no partner history of genital herpes. bloowork drawn, cultures sent, gbs done, rom plus sent. 07/08/24 -?-?-?-?-?-?-?-?-?-?-?-?- 37w 2d 148 lb 108/72 108/72 Negative -?-?-?-?-?-?-?-?-?-?-?-?- Negative 130 37 Cephalic 1 -?-?-?-?-?-?-?-?-?-?-?-?- SM- no vb lof go odfm no reuglar ctx hsv 2 titers positive, symptoms resolving on valtrex. discussed and plan LTCS for herpes outbreak. 07/18/24 -?-?-?-?-?-?-?-?-?-?-?-?- 38w 5d 157 lb 131/80 Negative -?-?-?-?-?-?-?-?-?-?-?-?- Negative 150 38 Cephalic 1 -?-?-?--?-?-?-?-?-?-?-?-?- 60 -2 KW- no vb/ lof/reg ctx. good fm. C/S for next week NST FHR Rate Baby A Baseline: 130 ROS Constitutional Constitutional: Reports systems reviewed and no addt'l complaints, except as documented Eyes Eyes: Denies change in vision ENT HEENT: Reports systems reviewed and no addt'l complaints, except as documented; Denies headache(s) Cardiovascular Cardiovascular: Reports systems reviewed and no addt'l complaints, except as documented; Denies chest pain or dyspnea Respiratory/Chest Respiratory/Chest: Reports systems reviewed and no addt'l complaints, except as documented Gastrointestinal Gastrointestinal: Reports systems reviewed and no addt'l complaints, except as documented; Denies abdominal pain Genitourinary Genitourinary: Reports systems reviewed and no addt'l complaints, except as documented, contractions Details: present (irregular) and movement Details: present; Denies dysuria or genital lesions Musculoskeletal Musculoskeletal: Reports systems reviewed and no addt'l complaints, except as documented Neurologic Neurologic: Reports systems reviewed and no addt'l complaints, except as documented Endocrine Endocrinology: Reports systems reviewed and no addt'l complaints, except as documented Vital Signs Vital Signs Vital Signs: 07/24/24 00:08 07/24/24 00:08 07/24/24 06:20 Temperature 96.7 F L 98.3 F Temperature Source Temporal Temporal Temporal Pulse Rate 76 78 Respiratory Rate 18 16 Respiratory Depth Respiratory Pattern Blood Pressure 121/75 H 131/83 H Blood Pressure Mean 90 99 Blood Pressure Source Monitor Monitor Blood Pressure Position Semi-Fowlers Blood Pressure Location Right Arm Baseline BP 131/83 Pulse Ox 100 100 Oxygen Delivery Method Room Air Room Air 07/24/24 08:55 07/24/24 08:55 07/24/24 09:01 Temperature 97.1 F L Temperature Source Temporal Temporal Temporal Pulse Rate 84 Respiratory Rate 18 Respiratory Depth Respiratory Pattern Blood Pressure 119/77 Blood Pressure Mean 91 Blood Pressure Source Monitor Blood Pressure Position Semi-Fowlers Blood Pressure Location Right Arm Baseline BP Pulse Ox 100 Oxygen Delivery Method Room Air 07/24/24 09:01 07/24/24 09:16 07/24/24 09:16 Temperature 97.1 F L 97.5 F L Temperature Source Temporal Temporal Temporal Pulse Rate 83 80 Respiratory Rate 18 19 H Respiratory Depth Respiratory Pattern Normal Blood Pressure 118/68 117/67 Blood Pressure Mean 84 83 Blood Pressure Source Monitor Monitor Blood Pressure Position Semi-Fowlers Semi-Fowlers Blood Pressure Location Right Arm Right Arm Baseline BP 131/83 131/83 Pulse Ox 97 96 Oxygen Delivery Method Room Air Room Air 07/24/24 09:29 07/24/24 09:46 07/24/24 09:46 Temperature 97.5 F L Temperature Source Temporal Temporal Pulse Rate 75 83 Respiratory Rate 18 18 Respiratory Depth Respiratory Pattern Blood Pressure 120/65 115/73 Blood Pressure Mean 83 87 Blood Pressure Source Monitor Monitor Blood Pressure Position Semi-Fowlers Semi-Fowlers Blood Pressure Location Right Arm Right Arm Baseline BP 131/83 131/83 Pulse Ox 96 96 Oxygen Delivery Method Room Air Room Air 07/24/24 10:01 07/24/24 10:01 07/24/24 10:16 Temperature 97.4 F L Temperature Source Temporal Temporal Pulse Rate 80 83 Respiratory Rate 15 21 H Respiratory Depth Respiratory Pattern Blood Pressure 120/70 121/71 H Blood Pressure Mean 86 87 Blood Pressure Source Monitor Monitor Blood Pressure Position Semi-Fowlers Semi-Fowlers Blood Pressure Location Right Arm Right Arm Baseline BP 131/83 131/83 Pulse Ox 97 97 Oxygen Delivery Method Room Air Room Air 07/24/24 10:31 07/24/24 10:31 07/24/24 10:46 Temperature 96.6 F L Temperature Source Temporal Temporal Temporal Pulse Rate 81 Respiratory Rate 18 Respiratory Depth Respiratory Pattern Blood Pressure 110/82 H Blood Pressure Mean 91 Blood Pressure Source Monitor Blood Pressure Position Semi-Fowlers Blood Pressure Location Right Arm Baseline BP 131/83 Pulse Ox 98 Oxygen Delivery Method Room Air 07/24/24 10:46 07/24/24 10:55 Temperature 96.1 F L Temperature Source Temporal Pulse Rate 80 80 Respiratory Rate 15 16 Respiratory Depth Normal Respiratory Pattern Blood Pressure 128/87 H 121/75 H Blood Pressure Mean 100 90 Blood Pressure Source Monitor Monitor Blood Pressure Position Semi-Fowlers Semi-Fowlers Blood Pressure Location Right Arm Right Arm Baseline BP 131/83 Pulse Ox 98 100 Oxygen Delivery Method Room Air Room Air Weight Weight: 152 lb Body Mass Index (BMI) 23.8 Physical Exam Const alert, oriented x3, no apparent distress and healthy appearing HEENT normocephalic and moist oral mucous membranes Head and Scalp: atraumatic Neck full ROM, no lymphadenopathy, supple and thyroid normal General: trachea midline Lymph Lymphatic: no lymphadenopathy noted Chest inspection of chest normal Resp normal respiratory effort Cardio regular rate GI normal to inspection, nondistended, normoactive bowel sounds, soft to palpation and non-tender Inspection: gravid external exam normal Manual OB Exam: estimated gestational size appropriate, presentation cephalic, dilated, effaced and station Extremity normal to inspection General Extremity: Negative for edema Skin no rashes or lesions noted Neuro no focal motor deficits and deep tendon reflexes 2+ bilaterally Motor Exam: strength 5/5 throughout and clonus absent Psych mental status grossly normal Labs Labs Labs: Blood Type A POSITIVE Antibody Screen NEGATIVE Hct 34.3 % (37-47) L Hgb 11.8 g/dL (12.0-15.0) L Pap Smear Negative Obstetrics Ultrasound Syphilis Total Ab Non-reactive VZV IgG Antibody 276 index (Immune >165) Rubella IgG Antibody Reactive (Nonreactive) Hep Bs Antigen Non-Reactive (Nonreactive) Hepatitis C Antibody Non-Reactive (Nonreactive) Chlamydia DNA (JOE) Negative (Negative) N.gonorrhoeae DNA (JOE) Negative (Negative) HIV 1&2 Antibody Non-Reactive (Nonreactive) Glucose 1 Hr 50 gm 128 mg/dL (70-140) Assessment & Plan (1) Herpes infection during in third trimester: COMMENT: treated at 36 weeks for recurrent infection, counseled regarding options, plan primary LTCS scheduled for 07/24 @ 7:15 with SM (2) Anemia affecting : QUALIFIERS: Trimester: second trimester Qualified Code(s): O99.012 - Anemia complicating , second trimester COMMENT: add OTC Fe daily, rpt labs in 4 wks (3) Anesthesia complication: QUALIFIERS: Encounter type: sequela Qualified Code(s): T88.59XS - Other complications of anesthesia, sequela COMMENT: causes migraines (4) Asthma: COMMENT: environment induced (5) Supervision of high-risk : QUALIFIERS: Trimester: third trimester Qualified Code(s): O09.93 - Supervision of high risk , unspecified, third trimester COMMENT: [id number], HERIBERTO 06/27/24, Adopted children Smiley, Fredo Adilson (6) : QUALIFIERS: Weeks of gestation: 38 weeks Qualified Code(s): Z3A.38 - 38 weeks gestation of COMMENT: GBS neg, nl 1 HR GCT, nl anatomy, discussed genetic & carrier testing, pt & have had carrier testing in past (7) Infertility: COMMENT: Spontaneous !! No contraception X 7 yr. 2 adopted children male and female factor-has seen Dr. Zamudio PLAN: Plan proceed with primary LTCS After discussing the patient's diagnosis and treatment plan options, patient wishes to proceed with surgical management. I have discussed with the patient the risks, benefits, and alternatives of the procedure which include but are not limited to risks of anesthesia, bleeding, infection, possible damage to bowel, bladder, or surrounding vasculature which could lead to additional surgery to evaluate any complications. Patient agrees to procedure and wishes to proceed. ACOG/uptodate references given for additional information regarding procedure.
--- NOTE | 2024-07-24 11:38 | EX.PCM.OBRPT ---
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 Mejia catheter was placed. The patient was placed in the dorsal supine position with leftward tilt. Patient was prepped and draped in the normal sterile fashion. Pfannenstiel skin incision was made with the scalpel and carried through to the underlying layer of fascia with the scalpel. Fascia was nicked in the midline and the incision extended laterally. The rectus bellies were dissected off superiorly and inferiorly with out complication both sharply and bluntly. The peritoneum was entered digitally. The incision was stretched and a low transverse uterine incision was made with the scalpel. The infant's head was delivered atraumatically followed by the anterior and posterior shoulders without complication the rest of the infant delivered. The cord was clamped and cut and the was handed off to awaiting nurse. The placenta was delivered spontaneously immediately following and was noted to be intact and have a three-vessel cord. The uterus was exteriorized cleared of all clots and debris, and the incision was closed in a double layer closure using #1 Monocryl. hemoblast used for hemostasis and 2-0 vicryl sutures. The ovaries and fallopian tubes were noted to be within normal limits. The uterus was returned to the maternal abdomen and gutters were cleared of all clots and debris. The peritoneum was closed with 3-0 Monocryl in a running fashion. Gloves were changed prior to fascial closure. Fascia was closed with 0 PDS in a running fashion. Subcutaneous tissue was copiously irrigated and the skin was closed with 3-0 Monocryl in a subcuticular fashion. Mepilex dressing was applied without complication. Patient was taken to recovery in stable condition. Amniotic Membrane Rupture Type: Artificial Amniotic Fluid Description: Clear Placenta Disposition: [facility] Cord Vessel Description: 3 Vessels Delayed Cord Clamping: Yes Complications Risks of Surgery Discussed w/Patient: Bleeding, Infection, Need for Future C-Sections and Injury to surrounding structure(s) including bowel and bladder Vaginal Delivery Complication Complications: None Admit VTE Documentation VTE Present on Admission: No VTE Mechan Device Prophylaxis: SCD's Procedures Urinary/Genital [id number]: [id number] Delivery [facility]
[2024-07-24] MEDS: proCHLORPERazine 10 MG/2 ML Vial IV (11:58)
[2024-07-24] MEDS: Senna/Docusate Sodium 1 Tablet PO (18:14)
[2024-07-24] MEDS: 0.9% Saline Lock 10 ML Syringe IV ×2 (18:14→21:16)
[2024-07-25] MEDS: 0.9% Saline Lock 10 ML Syringe IV (03:04)
[2024-07-25] MEDS: Ketorolac 30 MG/ML Syringe IV (03:04)
[2024-07-25 04:36] VITALS: BP 109/68; PULSE 77; RESP 16; TEMP 36.6; O2SAT 98
[2024-07-25] MEDS: Acetaminophen 500 MG Tablet 1000 MG PO ×4 (06:12→18:21)
[2024-07-25 06:27] LABS: Hematocrit 27.7 % (37-47); Hemoglobin 9.6 g/dL (12.0-15.0); Mean Corp Hgb Conc 34.7 g/dL (32-36); Mean Corpuscular Hgb 32.5 pg (27.0-32.0); Mean Corpuscular Volume 93.9 fL (81-99); Mean Platelet Vol. 11.2 fl (6.2-12.0); Platelet Count 142 K/mm3 (150-450); RBC Distribution Width CV 13.3 % (11.6-14.6); RBC Distribution Width SD 45.2 fl (35.1-43.9); Red Blood Count 2.95 M/mm3 (4.2-5.4)
--- NOTE | 2024-07-25 07:34 | PN.OBGYN_ITS ---
Subjective Subjective Patient doing well without complaints. Tolerating PO. Ambulating and voiding without difficulty. Feeding well. Denies chest pain, shortness of breath, calf pain/swelling, fevers, chills, lightheadedness. Objective Data Objective Data Vital Signs: Vital Signs Temp Pulse Resp BP Pulse Ox O2 Del Method 97.9 F 77 16 109/68 98 Room Air 07/25/24 04:36 07/25/24 04:36 07/25/24 04:36 07/25/24 04:36 07/25/24 04:36 07/25/24 04:36 Oxygen Delivery Method Room Air Weight: 152 lb Body Mass Index (BMI) 23.8 Intake & Output: Intake and Output for Last 24 Hours 07/23/24 07/24/24 07/25/24 23:59 23:59 23:59 Intake Total 3000.00 / 3000.00 Output Total 2049 / 2049 Balance 950.00 / 950.00 Lab / Micro Data 07/25/24 06:19 Labs: Laboratory Results - last 24 hr 07/24/24 05:02: Syphilis Total Ab Non-reactive 07/25/24 06:19: WBC 12.0 H, RBC 2.95 L, Hgb 9.6 L, Hct 27.7 L, MCV 93.9, MCH 32.5 H, MCHC 34.7, RDW Std Deviation 45.2 H, RDW Coeff of Ana 13.3, Plt Count 142 L, MPV 11.2 ROS Constitutional Constitutional: Reports systems reviewed and no addt'l complaints, except as documented; Denies anorexia or headache(s) Cardiovascular Cardiovascular: Reports systems reviewed and no addt'l complaints, except as documented; Denies dizziness, dyspnea, nausea or tachypnea Respiratory/Chest Respiratory/Chest: Reports systems reviewed and no addt'l complaints, except as documented; Denies cough, dyspnea, shortness of breath at rest or tachypnea Gastrointestinal Gastrointestinal: Reports systems reviewed and no addt'l complaints, except as documented; Denies abdominal pain, constipation or nausea Genitourinary Genitourinary: Reports systems reviewed and no addt'l complaints, except as documented; Denies burning urination, difficulty urinating, dysuria, urinary frequency or urinary incontinence Musculoskeletal Musculoskeletal: Reports systems reviewed and no addt'l complaints, except as documented Integumentary Integumentary: Reports systems reviewed and no addt'l complaints, except as documented Neurologic Neurologic: Reports systems reviewed and no addt'l complaints, except as documented; Denies abnormal speech, dizziness or headache(s) Psychiatric Psychiatric: Reports systems reviewed and no addt'l complaints, except as documented Endocrine Endocrinology: Reports systems reviewed and no addt'l complaints, except as documented Hematologic/Lymphatic Hematologic/Lymphatic: Reports systems reviewed and no addt'l complaints, except as documented Physical Exam Const alert, oriented x3 and no apparent distress Neck full ROM Resp normal respiratory effort, normal air movement and no retractions Effort and Inspection: able to speak in complete sentences and symmetric chest movement GI soft to palpation Bladder / Kidney Exam: bladder normal to palpation Uterus Palpation: uterus fundus firm Extremity normal to inspection and full ROM Psych mental status grossly normal, thought process normal and cooperative Assessment & Plan (1) Herpes infection during in third trimester: COMMENT: treated at 36 weeks for recurrent infection, counseled regarding options, plan primary LTCS scheduled for 07/24 @ 7:15 with SM (2) Anemia affecting : QUALIFIERS: Trimester: second trimester Qualified Code(s): O 99.012 - Anemia complicating , second trimester COMMENT: add OTC Fe daily, rpt labs in 4 wks (3) Anesthesia complication: QUALIFIERS: Encounter type: sequela Qualified Code(s): T88.59XS - Other complications of anesthesia, sequela COMMENT: causes migraines (4) Asthma: COMMENT: environment induced (5) Supervision of high-risk : QUALIFIERS: Trimester: third trimester Qualified Code(s): O09.93 - Supervision of high risk , unspecified, third trimester COMMENT: [id number], HERIBERTO 06/27/24, Adopted children Fredo Reis Adilson (6) : QUALIFIERS: Weeks of gestation: 38 weeks Qualified Code(s): Z 3A.38 - 38 weeks gestation of COMMENT: GBS neg, nl 1 HR GCT, nl anatomy, discussed genetic & carrier testing, pt & have had carrier testing in past (7) Infertility: COMMENT: Spontaneous !! No contraception X 7 yr. 2 adopted children male and female factor-has seen Dr. Zamudio (8) delivery delivered: PLAN: s/p LTCS PPD # 1 1. routine post care 2. breast feeding- support given 3. rh positive 4. rubella immune 5. Discharge home if desired Charges/Coding Multi Select Codes Urinary/Genital Urinary/Genital CPT Codes: No Charge
--- NOTE | 2024-07-25 07:36 | DCINST_ITS ---
Discharge Instructions Diet Discharge Diet: No restrictions Activity Discharge Activity: Return to Normal Activity May resume sexual activity in: 6-8 weeks Dressing / Incision Call your doctor if you observe: Fever of 101 or Higher, Coldness, Increased Pain, Numbness or Tingling, Change in Color, Inability to urinate, Inability to have a bowel movement, Using more than 1 pad per hour, Shortness of breath, Dizziness, Fainting spells, Swelling in the ankles, Chest pain, Increased palpitations (irregular heartbeat), Calf discomfort and Uncontrolled pain Follow Up Care Please Follow Up With: Lanette Bhat CNM When: Please call the office to schedule your follow up appointment in 6 weeks. If you had high blood pressure please call to schedule an appointment in 2 weeks. Test Results: Test results from this visit will be discussed in further detail at your follow- up appointment, if applicable. Discharge Plan Admission Admit Date/Time: 07/24/24 05:08 Attending Provider: Anila Elaine Primary Care Provider: Kevin Roca Discharge Orders/Prescriptions Prescriptions: New oxycodone 5 mg Tablet 5 - 10 mg PO Q4H PRN PRN (Reason: Pain Score 4-10) 3 Days Qty: 10 0RF naproxen 500 mg Tablet 500 mg PO Q8H 10 Days Qty: 30 0RF No Action ProAir HFA 90 mcg/actuation HFA aerosol inhaler 1 puff INHALATION Q6H PRN (Reason: Wheezing) Zyrtec 10 mg capsule 10 mg PO DAILY PRN (Reason: allergy symptoms) PNV-DHA 27 mg iron-1 mg -300 mg capsule 1 cap PO DAILY Biofreeze (menthol) 5 % gel topical ondansetron 4 mg tablet,disintegrating 4 mg PO Q4H PRN (Reason: nausea and vomiting) Qty: 60 5RF (DME) breast pump Device See Rx Instructions .ROUTE .MEDSUPPLY Qty: 1 0RF Rx Instructions: As directed valacyclovir [Valtrex] 1 gram tablet 1,000 mg PO BID 10 Days Qty: 20 6RF Rx Instructions: take BID x 10 days initially, then BID x 5 days for recurrent infections Referrals / Follow Up: Kevin Roca MD [Primary Care Provider] - Disposition Disposition (needs filled in before D/C Order can be placed): Home, Self Care
[2024-07-25 09:19] VITALS: BP 118/75; PULSE 85; RESP 16; TEMP 36.7
[2024-07-25] MEDS: Senna/Docusate Sodium 1 Tablet PO (09:38)
[2024-07-25] MEDS: Naproxen 500 MG Tablet PO ×2 (09:38→17:11)
[2024-07-25 13:44] VITALS: BP 121/71; PULSE 85; RESP 14; TEMP 36.6; O2SAT 99
[2024-07-25 20:50] VITALS: BP 110/72; PULSE 75; RESP 16; TEMP 36.4; O2SAT 99
[2024-07-26] MEDS: Acetaminophen 500 MG Tablet 1000 MG PO ×2 (00:50→06:33)
[2024-07-26] MEDS: Naproxen 500 MG Tablet PO ×2 (00:51→09:31)
[2024-07-26 01:45] VITALS: BP 126/79; PULSE 79; RESP 16; TEMP 36.7; O2SAT 99
--- NOTE | 2024-07-26 06:41 | PCM.PN.OB ---
Subjective Subjective Patient doing well without complaints. Tolerating PO. Ambulating and voiding without difficulty. feeding well. Denies chest pain, shortness of breath, calf pain/swelling, fevers, chills, lightheadedness. Objective Data Objective Data Vital Signs: Vital Signs Temp Pulse Resp BP Pulse Ox O2 Del Method 98.1 F 79 16 126/79 H 99 Room Air 07/26/24 01:45 07/26/24 01:45 07/26/24 01:45 07/26/24 01:45 07/26/24 01:45 07/26/24 01:45 Oxygen Delivery Method Room Air Weight: 152 lb Body Mass Index (BMI) 23.8 Intake & Output: Intake and Output for Last 24 Hours 07/24/24 07/25/24 07/26/24 23:59 23:59 23:59 Intake Total 3000.00 / 3000.00 Output Total 2049 / 2049 Balance 950.00 / 950.00 Lab / Micro Data 07/25/24 06:19 ROS Constitutional Constitutional: Reports systems reviewed and no addt'l complaints, except as documented Cardiovascular Cardiovascular: Reports systems reviewed and no addt'l complaints, except as documented Respiratory/Chest Respiratory/Chest: Reports systems reviewed and no addt'l complaints, except as documented Gastrointestinal Gastrointestinal: Reports systems reviewed and no addt'l complaints, except as documented Physical Exam Const alert, oriented x3 and no apparent distress HEENT Head and Scalp: atraumatic Resp normal respiratory effort GI soft to palpation and non-tender Inspection: incision intact, healing well and drainage (none) Bimanual Exam - Vag & Uterus: uterus non-tender Uterus Palpation: uterus fundus firm (below Umbilicus) Assessment & Plan (1) delivery delivered: COMMENT: LTCS HSV boy 39 [place] PLAN: Plan s/p LTCS PPD # 2 1. routine post care 2. breast feeding- support given 3. rh positive 4. rubella immune
[2024-07-26 08:55] VITALS: BP 121/87; PULSE 77; RESP 16; TEMP 36.4; O2SAT 98
[2024-07-26] MEDS: Senna/Docusate Sodium 1 Tablet PO (09:30)
== END 2024-07-26 11:15 | disposition home or self-care (01) | DRG 788 ==
PROVIDERS: Admitting Provider Obstetrics & Gynecology; PCP Family Medicine; Visit Provider Obstetrics & Gynecology
PROC: 10D00Z1 Extraction of Products of Conception, Low, Open Approach (ICD-10-PCS; CPT 59514; principal; 2024-07-24 07:00)
DX: O98.32 Other infections with a predominantly sexual mode of transmission complicating childbirth (principal); A60.04 Herpesviral vulvovaginitis; J45.909 Unspecified asthma, uncomplicated; D64.9 Anemia, unspecified; Z37.0 Single live birth; O99.02 Anemia complicating childbirth; Z3A.38 38 weeks gestation of pregnancy; O99.52 Diseases of the respiratory system complicating childbirth
CPT/HCPCS: 59025; 59050; 85025; 85027; 86780; 86850; 86900; 86901; 99221; J7120; A4216; G0378; J2405

== ENCOUNTER 2024-08-07 13:55 | Emergency (ER) | payer BC, SELFPAY ==
[2024-08-07 13:56] VITALS: BP 121/89; PULSE 79; RESP 16; TEMP 37.2; O2SAT 99; BMI 20.8
--- NOTE | 2024-08-07 14:04 | CT_ITS ---
STUDY: CT PELVIS WITH CONTRAST REASON FOR EXAM: Female, 29 years old. Fluctuance perineum evaluate for abscess. 2 weeks . RADIATION DOSAGE (If Supplied By Facility): CTDIvol = ( 26.60 ) mGy, DLP = ( 861.79 ) mGycm TECHNIQUE: Transaxial imaging of the pelvis was performed without oral contrast. IV 100mL Isovue-300 was administered intravenously. Multiplanar coronal and sagittal images were reformatted. Individualized dose optimization techniques were used for this CT. COMPARISON: None. FINDINGS: Normal urinary bladder. There is enlargement of the uterus with thickening of the endometrium measuring 3.8 cm. Low level density is seen within the inferior aspect of the endometrium. This may represent blood. Normal visualized small intestine. Normal visualized colon. There is no pelvic fluid. There is no pelvic lymphadenopathy or mass lesion. Normal visualized pelvic arteries. Small umbilical hernia containing fat. Soft tissue prominence deep to the skin within the subcutaneous tissue at the site of the . There is evidence of a 8.8 cm linear measurement by 1.2 cm fluid collection deep to the skin surface. This most likely represents postoperative changes. A small follicle is seen in the left ovary. Normal osseous structures. CT/Pelvis WITH IV Contrast IMPRESSION: Status post with postoperative changes seen in the subcutaneous tissue at the site suggestive of a small linear fluid collection. Persistent enlargement of the uterus with irregular appearance and thickening of the endometrium. Left ovarian follicle. Electronically Signed: Kenneth Li MD at 15:19 EDT ,
[2024-08-07 14:22] LABS: Absolute Neutrophil Count 7.2 X10^3/uL (2.0-7.7); Basophil# 0.07 X10^3/uL; Basophil% 0.6 % (0-1); Eosinophil# 0.48 X10^3/uL; Eosinophils% 4.4 % (0-5); Hematocrit 36.8 % (37-47); Hemoglobin 12.5 g/dL (12.0-15.0); Mean Corpuscular Hgb 32.1 pg (27.0-32.0); Mean Corpuscular Volume 94.4 fL (81-99); Mean Platelet Vol. 10.1 fl (6.2-12.0); Monocyte# 0.71 X10^3/uL; Monocyte% 6.5 % (0-10); NRBC Flagged by Analyzer 0 % (0-5); Platelet Count 301 K/mm3 (150-450); RBC Distribution Width CV 12.4 % (11.6-14.6); RBC Distribution Width SD 43.1 fl (35.1-43.9); White Blood Count 10.9 K/mm3 (4.4-11.0)
[2024-08-07 14:32] LABS: Anion Gap 9 (5-15); BUN 14 mg/dL (7-18); Calcium,Total 9.3 mg/dL (8.5-10.1); Chloride 106 mmol/L (98-107); Creatinine, Serum 0.64 mg/dL (0.55-1.02); EST Glomerular Filtration Rate 116 mL/min (>60); Est Glom Filt Rate - Afr Amer 140 mL/min (>60); Estimated Creatinine Clearance 121.39 ml/min; Glucose 95 mg/dL (74-106); Potassium 3.8 mmol/L (3.5-5.1); Sodium Level 142 mmol/L (136-145)
[2024-08-07 16:16] VITALS: BP 110/67; PULSE 71; RESP 16; TEMP 36.6; O2SAT 99
--- NOTE | 2024-08-07 16:18 | EDS_ITS ---
HPI History of Present Illness Chief Complaint: Wound Check Informant: patient Narrative Narrative: Patient is a 29-year-old female that is 14 days presenting with increasing incisional pain. She delivered via on 07/24. She denies any complications . She notes over the past week she has been having some increased pain and swelling at her incision site. She saw her FIBRE COMPOSITE TECHNICIAN again who wanted her to come to the ER for CT to rule out abscess or large intra-abdominal process. Patient denies associated redness but increased tenderness over the past week. She was taking Tylenol and naproxen regularly but it is stopped helping so she stopped taking those regularly about 2 days ago. Denies any fevers. Denies any change in her bowel movements or urinary symptoms. No other complaints or concerns at this time. [facility] Medical History Genital herpes affecting Hx of Lyme disease In vitro fertilization Seasonal allergies Chemical Dysmenorrhea Pelvic pain LIN I (cervical intraepithelial neoplasia I) History of colposcopy Home Medications ?Medication ?Instructions ?Recorded ?Last Taken ?Type albuterol sulfate 90 mcg/actuation 1 puff inhalation Q6H PRN Wheezing 01/01/19 Unknown History aerosol inhaler (ProAir HFA) cetirizine 10 mg capsule (Zyrtec) 10 mg PO DAILY PRN allergy symptoms 02/15/22 Unknown History multivitamin no.47-iron fum 27 1 cap PO DAILY 12/19/23 Unknown History mg-folate no.1 1 mg-dha 300 mg capsule (PNV-DHA) breast pump #1 ea 05/03/24 Unknown Rx naproxen 500 mg tablet 500 mg PO Q8H 10 days #30 tabs 07/25/24 Unknown Rx valacyclovir 1 gram tablet 1,000 mg PO BID PRN HSV 08/02/24 Unknown History (Valtrex) Allergy/AdvReac Type Severity Reaction Status Date / Time clarithromycin (From Biaxin) Allergy Mild rash Verified 08/07/24 13:56 latex Allergy Mild hives Verified 08/07/24 13:56 Family History Mother Hypertension Diabetes Grandmother Diabetes Cancer uterine Grandfather Diabetes Heart disease Hypertension Surgical History H/O breast biopsy H/O esophagogastroduodenoscopy Status post tonsillectomy and adenoidectomy Social History adopted: No household members: spouse and adopted family number of children: 2 current occupational status: employed current occupation: [employer] current occupational exposures/hazards: No pets and animals: Yes (avoid litterbox) pets and animals: cat(s), dog(s), fish and other details: snails and salamander tanks history of recent travel: Yes (- November) out of state: Yes out of country: No sexually active: Yes Smoking Status: Never smoker alcohol intake: never substance use type: does not use well-balanced diet: daily or most days caffeine: No eating out: 1-3 times/week during the past year weight has: remained stable what type of physical activity do you participate in: walking frequency: 1-2 times per week duration: 45-60 minutes/day shira/mandaen: Mandaeism seatbelt use: always do you feel safe at home: Yes additional social history: [employer] Patient work for [employer] ED Constitutional Constitutional ED: Denies chills or fever(s) Cardiovascular Cardiovascular: Denies chest pain Respiratory/Chest Respiratory/Chest: Denies cough Gastrointestinal Gastrointestinal: Reports abdominal pain; Denies constipation, diarrhea, nausea or vomiting Musculoskeletal Musculoskeletal: Denies arthralgias or myalgias Integumentary Denies rash Hematologic/Lymphatic Hematologic/Lymphatic: Denies easy bleeding or easy bruising EXAM Physical Exam Const Vital Signs: 08/07/24 13:56 08/07/24 16:16 Temperature 99 F 98 F Temperature Source Oral Pulse Rate 79 71 Respiratory Rate 16 16 Blood Pressure 121/89 H 110/67 Blood Pressure Mean 99 81 Pulse Ox 99 99 Oxygen Delivery Method Room Air Positive well nourished and well developed General Appearance ED: well developed and NAD HEENT Reports moist mucous membranes Neck supple Chest Wall inspection of chest normal Resp normal respiratory effort and clear to auscultation bilaterally Cardio regular rate and regular rhythm GI GI Narrative: Soft tissue tenderness and swelling at lower abdomen over her site. There is a localized area of swelling and normal fluctuance at the right side of the incision. Mild tenderness palpation at the suprapubic region. Extremity normal to inspection Neuro oriented x3 Sensorium / Orientation: alert Motor Exam: Negative for general weakness Skin Skin Narrative: Healing low transverse incision. No associated drainage or erythema appreciated. There is tenderness with light palpation to the area. MDM MDM MDM Narrative Medical decision making narrative: Patient is evaluated for increased pain at her site in her lower abdomen. She was sent by her account classification clerk for further evaluation. Lab work clued a CBC and a BMP was obtained as well as CT of the abdomen pelvis. Lab work is normal with a normal white blood cell count specifically. Her vital signs are normal and she is afebrile. CT of the abdomen pelvis is consistent with recent postoperative changes as well as changes in the subcutaneous tissue at the site suggestive of small linear fluid collection. Persistent enlarged irregular uterus appearance with thickening of the endometrium present. Patient's hemoglobin is improving. Overall patient is quite well-appearing. I spoke with her account classification clerk, Dr. Ramirez Tirado. She reviewed the films. She feels that patient likely has a seroma that needs to be drained plus or minus antibiotics. We discussed her coming to the ER versus the patient going to the OB office. Ultimately was decided for the patient will be discharged in the ER Go directly to OB office for definitive management and drainage of her seroma. Patient is agreeable this plan of care. Patient discharged home in stable condition. Patient is not having overlying cellulitic changes. Lab Data Labs: Laboratory Results - last 24 hr 08/07/24 14:10 WBC 10.9 RBC 3.90 L Hgb 12.5 Hct 36.8 L MCV 94.4 MCH 32.1 H MCHC 34.0 RDW Std Deviation 43.1 RDW Coeff of Ana 12.4 Plt Count 301 MPV 10.1 Immature Gran % (Auto) 0.500 Neut % (Auto) 66.0 Lymph % (Auto) 22.0 Crockett % (Auto) 6.5 Eos % (Auto) 4.4 Baso % (Auto) 0.6 Absolute Neuts (auto) 7.2 Absolute Lymphs (auto) 2.40 Nucleated RBC % 0 Sodium 142 Potassium 3.8 Chloride 106 Carbon Dioxide 27.0 Anion Gap 9 BUN 14 Creatinine 0.64 Estim Creat Clear Calc 121.39 Est GFR (MDRD) Af Amer 140 Est GFR (MDRD) Non-Af 116 BUN/Creatinine Ratio 22.0 H Glucose 95 Calcium 9.3 Radiography Diagnostic Testing: Clinical Impression(s) from Imaging Studies Pelvis CT 08/07/24 14:04 IMPRESSION: Status post with postoperative changes seen in the subcutaneous tissue at the site suggestive of a small linear fluid collection. Persistent enlargement of the uterus with irregular appearance and thickening of the endometrium. Left ovarian follicle. Electronically Signed: Kenneth Li MD at 15:19 EDT , Discharge Plan Triage Chief Complaint: Wound Check ED Provider: Kera Schulz Dx/Rx/DC Orders Clinical Impression: Postoperative wound seroma, Lower abdominal pain Instructions: ED Wound Check (No Infection) Prescriptions: No Action ProAir HFA 90 mcg/actuation HFA aerosol inhaler 1 puff INHALATION Q6H PRN (Reason: Wheezing) Zyrtec 10 mg capsule 10 mg PO DAILY PRN (Reason: allergy symptoms) PNV-DHA 27 mg iron-1 mg -300 mg capsule 1 cap PO DAILY (DME) breast pump Device See Rx Instructions .ROUTE .MEDSUPPLY Qty: 1 0RF Rx Instructions: As directed valacyclovir [Valtrex] 1 gram tablet 1,000 mg PO BID PRN (Reason: HSV) Rx Instructions: take BID x 10 days initially, then BID x 5 days for recurrent infections naproxen 500 mg Tablet 500 mg PO Q8H 10 Days Qty: 30 0RF Primary Care Provider: Kevin Roca Referrals: Kevin Roca MD [Primary Care Provider] - Activity Restrictions/Additional Instructions: Please go directly to Dr. Morales Tirado's office. Do not eat prior to going there. Your lab work was largely normal today. Your CT did show fluid collection right below your incision site. Print Language: Citizen [place] Disposition Disposition: Home, Self Care
== END 2024-08-07 16:30 | disposition home or self-care (01) ==
PROVIDERS: Emergency Medicine; Emergency Provider Emergency Medicine; PCP Family Medicine; Visit Provider Emergency Medicine
DX: L76.34 Postprocedural seroma of skin and subcutaneous tissue following other procedure (principal); R10.30 Lower abdominal pain, unspecified
CPT/HCPCS: 72193; 80048; 85025; 99283; Q9967

== ENCOUNTER → 2024-08-07 | Outpatient (CLI) | payer BC, SELFPAY | END | disposition home or self-care (01) | PROVIDERS: PCP Family Medicine; Referring Provider Obstetrics & Gynecology; Visit Provider Obstetrics & Gynecology | DX: T14.8XXA Other injury of unspecified body region, initial encounter (principal); L08.9 Local infection of the skin and subcutaneous tissue, unspecified; X58.XXXA Exposure to other specified factors, initial encounter | CPT/HCPCS: 87070; 87077; 87205 ==

== ENCOUNTER → 2024-08-09 | Outpatient (CLI) | payer BC, SELFPAY | END | disposition home or self-care (01) | LOC: LABSPEC 16:57 | PROVIDERS: PCP Family Medicine; Referring Provider Obstetrics & Gynecology; Visit Provider Obstetrics & Gynecology | DX: O90.89 Other complications of the puerperium, not elsewhere classified (principal); Z3A.00 Weeks of gestation of pregnancy not specified | CPT/HCPCS: 87070; 87205 ==